=== PATIENT | female | born 1935 | race Caucasian/White ===

== ENCOUNTER 2017-03-04 10:00 | Outpatient (RCR) | payer MEDICARE, OTHER, SELFPAY ==
[2017-02-24 09:18] VITALS: BP 128/65; PULSE 83; RESP 18; TEMP 36.6; BMI 28.7
[2017-02-24 13:48] LABS: Prealbumin 16.3 mg/dL (20.0-40.0)
--- NOTE | 2017-02-24 17:05 | PCM.WC.HP ---
(1) Chronic ulcer of back Status: Acute Code(s): L98.429 - Non-pressure chronic ulcer of back with unspecified severity History of Present Illness Date of Service: 02/24/17 Chief Complaint: Upper Back Ulcer. History of Wound: Ms Ty is a pleasant 82-year-old with past medical history of CKD, hypothyroidism and hypertension amongst others who presented here due to nonhealing upper back wound. Wound was said to have been noted by family in January. Patient believes that she had a rash that she kept picking at and which subsequently worsened to its current state. She denies any known discharge from the site. She feels well otherwise and denies chills, fever, nausea, vomiting, change in her bowel habits or otherwise feeling of unwell. She has had no management of this wound. She denies any history of diabetes. She had lived alone until now but currently lives with her son and [id number]. Past Medical History Past Medical History: Chronic Problems Dyslipidemia (Chronic) Essential (primary) hypertension (Chronic) Hypothyroidism (Chronic) Allergies/Adverse Reactions: Allergies Sulfa (Sulfonamide Antibiotics) Allergy (Verified 01/26/17 05:35) Vomiting Home Medications: Ambulatory Orders Medication Instructions Recorded Albuterol Inhaler [Ventolin Hfa] 1 puff INHALATION Q4H PRN PRN 06/01/13 Budesonide/Formoterol 160/4.5 2 puff INHALATION BID 06/01/13 [Symbicort 160/4.5 Mcg Inhaler (SP)] Carvedilol [Coreg (Beta Rigo)] 6.25 mg PO BID 06/01/13 Gabapentin [Neurontin] 400 mg PO TID 06/01/13 Levothyroxine [Synthroid] 75 mcg PO DAILY 06/01/13 Pantoprazole Sodium [Protonix] 40 mg PO DAILY 06/01/13 ALPRAZolam [Xanax] 0.5 mg PO QHS PRN PRN 01/26/17 Azelastine HCl [Astelin] 2 spray NASAL BID 01/26/17 Benzonatate [Tessalon Perle] 100 mg PO PRN PRN 01/26/17 Losartan Potassium 25 mg PO BID 01/26/17 Murine Dry Eyes 2 drop EACH EYE TID PRN PRN 01/26/17 Pravastatin [Pravachol] 10 mg PO DAILY 01/26/17 Acetaminophen [Tylenol Tablet] 650 mg PO Q6H PRN PRN tablet 01/28/17 - Family History Paternal No pertinent history Smoking Status: Never smoker Review of Systems Constitutional: Denies: Anorexia, Chills, Fever Eyes: Denies: Redness HEENT: Denies: Difficulty Swallowing Cardiovascular: Denies: Chest Pain Respiratory: Denies: Cough, Hemoptysis Gastrointestinal: Denies: Abdominal Pain Skin: Denies: Jaundice - Physical Exam Vital Signs Temp Pulse Resp BP 97.8 F 83 18 128/65 H 02/24/17 09:18 02/24/17 09:18 02/24/17 09:18 02/24/17 09:18 General: Alert, Oriented x3, Cooperative, No apparent distress HEENT: Atraumatic, Normocephalic Oral: Moist Mucosa Neck: Supple Lungs: Normal air movement Cardiovascular: Regular rate, Regular Rhythm, Normal S1, Normal S2 Abdomen: Soft, Non Tender Wound Measurements and Assessment WC - Nurse 1 - General Ulcer Measurement Start: 02/24/17 09:18 Freq: Status: Active Protocol: Activity Type Activity Date Activity User E-Sign Co-Sign Detail Recorded Client Recorded Date Recorded By Document 02/24/17 09:18 MW [id number] 02/24/17 09:38 MW 02/24/17 09:18 Wound Center Nurse 1 [Ulcer Assessment Protocol: WC.WD.LOC] #1 Upper Back - Midline -Combined with other wound No -Current Size (cm) - Length 2.1 -Current Size (cm) - Width 5.8 -Current Size (cm) - Depth 0.1 -Total Square Cm 01.25 -Date of Last Picture (Recall this 02/24/17 field) -Photo Taken Yes -Epithelialization None Present -Tunneling No -Undermining/Tunneling No -Circular Undermining No -Exudate Amt Small (1-33%) -Exudate Type Purulent -Wound Margin Flat & Intact -Granulation Amt None Present (0 %) -Granulation Quality N/A -Slough/Fibrin Yes -Necrosis Amt Large (67-100%) -Necrotic Tissue Type Eschar -Structure Exposed N/A -Texture (Raquel-wound Skin Appearance) No Abnormality Assessed -Moisture (Raquel-wound Skin Appearance No Abnormality ) Assessed -Color (Raquel-wound Skin Appearance) Assessed Erythema -Temperature (Raquel-wound Skin No Abnormality Appearance) (Pt Warm) -Tenderness on Palpation (Raquel-wound No Skin Appearance) -Ulcer Cleansing Rinsed/ Irrigated with Saline -Foul Odor after Cleansing No -Anesthetic Used 5% Lidocaine Gel [Edema Assessment] -Lower Limb Edema Present No WC - Nurse 2 - General Ulcer CM Notes Start: 02/24/17 09:18 Freq: Status: Active Protocol: Activity Type Activity Date Activity User E-Sign Co-Sign Detail Recorded Client Recorded Date Recorded By Document 02/24/17 10:14 DV [id number] 02/24/17 10:36 DV 02/24/17 10:14 Wound Center Nurse 2 [Procedure/Treatment] #1 Upper Back - Midline -Time 10:18 -Correct Patient Yes -Correct Side, Site, Position Yes -Correct Procedure Yes -Procedure Performed Yes -Post Debridement Size (cm) - Length 2.2 -Post Debridement Size (cm) - Width 5.6 -Post Debridement Size (cm) - Depth 0.2 -Total Square Cm 12.32 -Wound/Ulcer Outcome Not Healed -Ulcer Cleansing Rinsed/ Irrigated with Saline -Foul Odor after Cleansing No -Bioengineered Tissue No -Cetacaine [place] No -Bleeding Controlled with Pressure -Treatment Response Procedure Tolerated Well [See Physician Procedure note for Specifics] Pain Scale: 0-10 Numeric [Pain] -Is Patient Pain Free? Yes Lymphatic: No Cervical, Supraclavicular, or Inguinal Adenopathy Neurological: Cranial nerves II-XII grossly intact Psych/Mental Status: Normal Affect Debridement Note Post-Debridement Measurements/Treatment WC - Nurse 2 - General Ulcer CM Notes Start: 02/24/17 09:18 Freq: Status: Active Protocol: Activity Type Activity Date Activity User E-Sign Co-Sign Detail Recorded Client Recorded Date Recorded By Document 02/24/17 10:14 DV [id number] 02/24/17 10:36 DV 02/24/17 10:14 Wound Center Nurse 2 #1 Upper Back - Midline -Time 10:18 -Correct Patient Yes -Correct Side, Site, Position Yes -Correct Procedure Yes -Procedure Performed Yes -Post Debridement Size (cm) - Length 2.2 -Post Debridement Size (cm) - Width 5.6 -Post Debridement Size (cm) - Depth 0.2 -Total Square Cm 12.32 -Wound/Ulcer Outcome Not Healed -Ulcer Cleansing Rinsed/ Irrigated with Saline -Foul Odor after Cleansing No -Bioengineered Tissue No -Cetacaine [place] No -Bleeding Controlled with Pressure -Treatment Response Procedure Tolerated Well Pain Scale: 0-10 Numeric Is Patient Pain Free? Yes Wound debrided: Upper back Type of Debridement: Excisional debridement Anesthesia Used: 4% Lidocaine Solution Depth: Down to and including healthy tissue, in the subcutaneous layer Percentage of wound debrided: 100 Instrument Used: 5mm curette, #10 blade, Forceps Tissue Removed: Eschar, Biofilm, Slough. 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 Plan: Wound debrided today with removal of eschar. Significant slough burden below the eschar which was also debrided. Procedure was well-tolerated. Cultures were taken. Patient also with a poor appetite and so prealbumin was ordered. Advised to take protein supplements twice daily. Apply Aquacel silver dressing with Adaptic covering daily. Follow-up in 1 week. This note was generated with [employer] dictation software. It may contain incorrect words, spelling, and punctuation that were not noted in checking the note before signing.
--- NOTE | 2017-02-24 17:13 | HP.PCM_ITS ---
(1) Chronic ulcer of back Status: Acute Code(s): L98.429 - Non-pressure chronic ulcer of back with unspecified severity History of Present Illness Date of Service: 02/24/17 Chief Complaint: Upper Back Ulcer. History of Wound: Ms Ty is a pleasant 82-year-old with past medical history of CKD, hypothyroidism and hypertension amongst others who presented here due to nonhealing upper back wound. Wound was said to have been noted by family in January. Patient believes that she had a rash that she kept picking at and which subsequently worsened to its current state. She denies any known discharge from the site. She feels well otherwise and denies chills, fever, nausea, vomiting, change in her bowel habits or otherwise feeling of unwell. She has had no management of this wound. She denies any history of diabetes. She had lived alone until now but currently lives with her son and daughter-in- law. Past Medical History Past Medical History: Chronic Problems Dyslipidemia (Chronic) Essential (primary) hypertension (Chronic) Hypothyroidism (Chronic) Allergies/Adverse Reactions: Allergies Sulfa (Sulfonamide Antibiotics) Allergy (Verified 01/26/17 05:35) Vomiting Home Medications: Ambulatory Orders Medication Instructions Recorded Albuterol Inhaler [Ventolin Hfa] 1 puff INHALATION Q4H PRN PRN 06/01/13 Budesonide/Formoterol 160/4.5 2 puff INHALATION BID 06/01/13 [Symbicort 160/4.5 Mcg Inhaler (SP)] Carvedilol [Coreg (Beta Rigo)] 6.25 mg PO BID 06/01/13 Gabapentin [Neurontin] 400 mg PO TID 06/01/13 Levothyroxine [Synthroid] 75 mcg PO DAILY 06/01/13 Pantoprazole Sodium [Protonix] 40 mg PO DAILY 06/01/13 ALPRAZolam [Xanax] 0.5 mg PO QHS PRN PRN 01/26/17 Azelastine HCl [Astelin] 2 spray NASAL BID 01/26/17 Benzonatate [Tessalon Perle] 100 mg PO PRN PRN 01/26/17 Losartan Potassium 25 mg PO BID 01/26/17 Murine Dry Eyes 2 drop EACH EYE TID PRN PRN 01/26/17 Pravastatin [Pravachol] 10 mg PO DAILY 01/26/17 Acetaminophen [Tylenol Tablet] 650 mg PO Q6H PRN PRN tablet 01/28/17 - Family History Paternal No pertinent history Smoking Status: Never smoker Review of Systems Constitutional: Denies: Anorexia, Chills, Fever Eyes: Denies: Redness HEENT: Denies: Difficulty Swallowing Cardiovascular: Denies: Chest Pain Respiratory: Denies: Cough, Hemoptysis Gastrointestinal: Denies: Abdominal Pain Skin: Denies: Jaundice - Physical Exam Vital Signs Temp Pulse Resp BP 97.8 F 83 18 128/65 H 02/24/17 09:18 02/24/17 09:18 02/24/17 09:18 02/24/17 09:18 General: Alert, Oriented x3, Cooperative, No apparent distress HEENT: Atraumatic, Normocephalic Oral: Moist Mucosa Neck: Supple Lungs: Normal air movement Cardiovascular: Regular rate, Regular Rhythm, Normal S1, Normal S2 Abdomen: Soft, Non Tender Wound Measurements and Assessment WC - Nurse 1 - General Ulcer Measurement Start: 02/24/17 09:18 Freq: Status: Active Protocol: Activity Type Activity Date Activity User E-Sign Co-Sign Detail Recorded Client Recorded Date Recorded By Document 02/24/17 09:18 MW [id number] 02/24/17 09:38 MW 02/24/17 09:18 Wound Center Nurse 1 [Ulcer Assessment Protocol: WC.WD.LOC] #1 Upper Back - Midline -Combined with other wound No -Current Size (cm) - Length 2.1 -Current Size (cm) - Width 5.8 -Current Size (cm) - Depth 0.1 -Total Square Cm 01.25 -Date of Last Picture (Recall this 02/24/17 field) -Photo Taken Yes -Epithelialization None Present -Tunneling No -Undermining/Tunneling No -Circular Undermining No -Exudate Amt Small (1-33%) -Exudate Type Purulent -Wound Margin Flat & Intact -Granulation Amt None Present (0 %) -Granulation Quality N/A -Slough/Fibrin Yes -Necrosis Amt Large (67-100%) -Necrotic Tissue Type Eschar -Structure Exposed N/A -Texture (Raquel-wound Skin Appearance) No Abnormality Assessed -Moisture (Raquel-wound Skin Appearance No Abnormality ) Assessed -Color (Raquel-wound Skin Appearance) Assessed Erythema -Temperature (Raquel-wound Skin No Abnormality Appearance) (Pt Warm) -Tenderness on Palpation (Raquel-wound No Skin Appearance) -Ulcer Cleansing Rinsed/ Irrigated with Saline -Foul Odor after Cleansing No -Anesthetic Used 5% Lidocaine Gel [Edema Assessment] -Lower Limb Edema Present No WC - Nurse 2 - General Ulcer CM Notes Start: 02/24/17 09:18 Freq: Status: Active Protocol: Activity Type Activity Date Activity User E-Sign Co-Sign Detail Recorded Client Recorded Date Recorded By Document 02/24/17 10:14 DV [id number] 02/24/17 10:36 DV 02/24/17 10:14 Wound Center Nurse 2 [Procedure/Treatment] #1 Upper Back - Midline -Time 10:18 -Correct Patient Yes -Correct Side, Site, Position Yes -Correct Procedure Yes -Procedure Performed Yes -Post Debridement Size (cm) - Length 2.2 -Post Debridement Size (cm) - Width 5.6 -Post Debridement Size (cm) - Depth 0.2 -Total Square Cm 12.32 -Wound/Ulcer Outcome Not Healed -Ulcer Cleansing Rinsed/ Irrigated with Saline -Foul Odor after Cleansing No -Bioengineered Tissue No -Cetacaine [place] No -Bleeding Controlled with Pressure -Treatment Response Procedure Tolerated Well [See Physician Procedure note for Specifics] Pain Scale: 0-10 Numeric [Pain] -Is Patient Pain Free? Yes Lymphatic: No Cervical, Supraclavicular, or Inguinal Adenopathy Neurological: Cranial nerves II-XII grossly intact Psych/Mental Status: Normal Affect Debridement Note Post-Debridement Measurements/Treatment WC - Nurse 2 - General Ulcer CM Notes Start: 02/24/17 09:18 Freq: Status: Active Protocol: Activity Type Activity Date Activity User E-Sign Co-Sign Detail Recorded Client Recorded Date Recorded By Document 02/24/17 10:14 DV [id number] 02/24/17 10:36 DV 02/24/17 10:14 Wound Center Nurse 2 #1 Upper Back - Midline -Time 10:18 -Correct Patient Yes -Correct Side, Site, Position Yes -Correct Procedure Yes -Procedure Performed Yes -Post Debridement Size (cm) - Length 2.2 -Post Debridement Size (cm) - Width 5.6 -Post Debridement Size (cm) - Depth 0.2 -Total Square Cm 12.32 -Wound/Ulcer Outcome Not Healed -Ulcer Cleansing Rinsed/ Irrigated with Saline -Foul Odor after Cleansing No -Bioengineered Tissue No -Cetacaine [place] No -Bleeding Controlled with Pressure -Treatment Response Procedure Tolerated Well Pain Scale: 0-10 Numeric Is Patient Pain Free? Yes Wound debrided: Upper back Type of Debridement: Excisional debridement Anesthesia Used: 4% Lidocaine Solution Depth: Down to and including healthy tissue, in the subcutaneous layer Percentage of wound debrided: 100 Instrument Used: 5mm curette, #10 blade, Forceps Tissue Removed: Eschar, Biofilm, Slough. 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 Plan: Wound debrided today with removal of eschar. Significant slough burden below the eschar which was also debrided. Procedure was well-tolerated. Cultures were taken. Patient also with a poor appetite and so prealbumin was ordered. Advised to take protein supplements twice daily. Apply Aquacel silver dressing with Adaptic covering daily. Follow-up in 1 week. This note was generated with [employer] dictation software. It may contain incorrect words, spelling, and punctuation that were not noted in checking the note before signing.
[2017-03-04 10:39] VITALS: BP 158/86; PULSE 66; RESP 18; TEMP 36.2; BMI 28.7
--- NOTE | 2017-03-04 10:40 | WC ---
PT WENT TO DR DRUMMOND FOR COUGH WEDNESDAY HE PRESCRIBED PREDNISONE AND ATB NOT SURE OF DOSEAGE
--- NOTE | 2017-03-04 15:26 | PCM.WC.PN ---
(1) Chronic ulcer of back Status: Acute Current Visit: Yes Code(s): L98.429 - Non-pressure chronic ulcer of back with unspecified severity Type of Wound Date of Service: 03/04/17 Chief Complaint: Upper Back Ulcer. History of Wound: Ms Ty is a pleasant 82-year-old with past medical history of CKD, hypothyroidism and hypertension amongst others who presented here due to nonhealing upper back wound. Wound was said to have been noted by family in January. Patient believes that she had a rash that she kept picking at and which subsequently worsened to its current state. She denies any known discharge from the site. She feels well otherwise and denies chills, fever, nausea, vomiting, change in her bowel habits or otherwise feeling of unwell. She has had no management of this wound. She denies any history of diabetes. She had lived alone until now but currently lives with her son and [id number]. Progress of Wound: Improving. - Physical Exam Vital Signs Temp Pulse Resp BP 97.1 F L 66 18 158/86 H 03/04/17 10:39 03/04/17 10:39 03/04/17 10:39 03/04/17 10:39 General: Alert, Cooperative, No apparent distress HEENT: Atraumatic, Normocephalic Oral: Moist Mucosa Neck: Supple Lungs: Normal air movement Cardiovascular: Regular rate Extremities: No cyanosis Wound Measurements and Assessment - Nurse 1 - General Ulcer Measurement Start: 02/24/17 09:18 Freq: Status: Active Protocol: Activity Type Activity Date Activity User E-Sign Co-Sign Detail Recorded Client Recorded Date Recorded By Document 03/04/17 10:39 [id number] 03/04/17 10:51 RB 03/04/17 10:39 Wound Center Nurse 1 [Ulcer Assessment Protocol: KAYLI.WD.LOC] #1 Upper Back - Midline -Combined with other wound No -Current Size (cm) - Length 1.6 -Current Size (cm) - Width 5 -Current Size (cm) - Depth 0.1 -Total Square Cm 8.0 -Photo Taken No -Epithelialization Medium 34-66% -Tunneling No -Undermining/Tunneling No -Circular Undermining No -Classification - Thickness Full Thickness without Exposed Support Structure -Exudate Amt Small (1-33%) -Exudate Type Serosanguineous -Wound Margin Distinct, Outline Attached -Granulation Amt Large (67-100%) -Granulation Quality [place] -Necrosis Amt Small (1-33%) -Necrotic Tissue Type Adherent Slough -Structure Exposed N/A -Texture (Raquel-wound Skin Appearance) Assessed -Moisture (Raquel-wound Skin Appearance Assessed ) -Color (Raquel-wound Skin Appearance) Assessed -Temperature (Raquel-wound Skin No Abnormality Appearance) (Pt Warm) -Tenderness on Palpation (Raquel-wound No Skin Appearance) -Ulcer Cleansing Rinsed/ Irrigated with Saline -Foul Odor after Cleansing No -Anesthetic Used 5% Lidocaine Gel WC - Nurse 2 - General Ulcer CM Notes Start: 02/24/17 09:18 Freq: Status: Active Protocol: Activity Type Activity Date Activity User E-Sign Co-Sign Detail Recorded Client Recorded Date Recorded By Document 03/04/17 11:37 DV [id number] 03/04/17 11:40 DV 03/04/17 11:37 Wound Center Nurse 2 [Procedure/Treatment] -Time 11:39 -Correct Patient Yes -Correct Side, Site, Position Yes -Correct Procedure Yes -Procedure Performed Yes -Type of Procedure Debridement -Clinical Debridement Subcutaneous -Post Debridement Size (cm) - Length 5.5 -Post Debridement Size (cm) - Width 1.5 -Post Debridement Size (cm) - Depth 0.1 -Total Square Cm 8.25 -Wound/Ulcer Outcome Not Healed -Ulcer Cleansing Rinsed/ Irrigated with Saline -Foul Odor after Cleansing No -Bioengineered Tissue No -Cetacaine [place] No -Bleeding Controlled with Pressure -Treatment Response Procedure Tolerated Well [See Physician Procedure note for Specifics] Pain Scale: 0-10 Numeric [Pain] -Is Patient Pain Free? Yes Neurological: Cranial nerves II-XII grossly intact Psych/Mental Status: Normal Affect Debridement Note Post-Debridement Measurements/Treatment WC - Nurse 2 - General Ulcer CM Notes Start: 02/24/17 09:18 Freq: Status: Active Protocol: Activity Type Activity Date Activity User E-Sign Co-Sign Detail Recorded Client Recorded Date Recorded By Document 02/24/17 10:14 DV [id number] 02/24/17 10:36 DV Document 03/04/17 11:37 DV [id number] 03/04/17 11:40 DV 02/24/17 03/04/17 10:14 11:37 Wound Center Nurse 2 #1 Upper Back - Midline -Time 10:18 11:39 -Correct Patient Yes Yes -Correct Side, Site, Position Yes Yes -Correct Procedure Yes Yes -Procedure Performed Yes Yes -Type of Procedure Debridement -Clinical Debridement Subcutaneous -Post Debridement Size (cm) - Length 2.2 5.5 -Post Debridement Size (cm) - Width 5.6 1.5 -Post Debridement Size (cm) - Depth 0.2 0.1 -Total Square Cm 12.32 8.25 -Wound/Ulcer Outcome Not Healed Not Healed -Ulcer Cleansing Rinsed/ Rinsed/ Irrigated with Irrigated with Saline Saline -Foul Odor after Cleansing No No -Bioengineered Tissue No No -Cetacaine [place] No No -Bleeding Controlled with Pressure Pressure -Treatment Response Procedure Procedure Tolerated Well Tolerated Well Pain Scale: 0-10 Numeric Is Patient Pain Free? Yes Yes Wound debrided: Upper back ulcer Type of Debridement: Excisional debridement Anesthesia Used: 5% Lidocaine Gel Depth: Down to and including healthy tissue, in the subcutaneous layer Percentage of wound debrided: 100 Instrument Used: 5mm curette Tissue Removed: Slough, fibrin. 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 Plan: Cultures grew MRSA and per son , there has been significant discharge noted with dressing change. Prescription for Levofloxacin 500mg daily for 7 days given. Continue Aquacel silver with dressing done twice daily. Adaptic covering. Low prealbumin: Protein supplements recommended. Protein rich diet. Follow-up in 1 week. This note was generated with [employer] dictation software. It may contain incorrect words, spelling, and punctuation that were not noted in checking the note before signing.
--- NOTE | 2017-03-04 15:31 | PN.PCM_ITS ---
(1) Chronic ulcer of back Status: Acute Current Visit: Yes Code(s): L98.429 - Non-pressure chronic ulcer of back with unspecified severity Type of Wound Date of Service: 03/04/17 Chief Complaint: Upper Back Ulcer. History of Wound: Ms Ty is a pleasant 82-year-old with past medical history of CKD, hypothyroidism and hypertension amongst others who presented here due to nonhealing upper back wound. Wound was said to have been noted by family in January. Patient believes that she had a rash that she kept picking at and which subsequently worsened to its current state. She denies any known discharge from the site. She feels well otherwise and denies chills, fever, nausea, vomiting, change in her bowel habits or otherwise feeling of unwell. She has had no management of this wound. She denies any history of diabetes. She had lived alone until now but currently lives with her son and daughter-in- law. Progress of Wound: Improving. - Physical Exam Vital Signs Temp Pulse Resp BP 97.1 F L 66 18 158/86 H 03/04/17 10:39 03/04/17 10:39 03/04/17 10:39 03/04/17 10:39 General: Alert, Cooperative, No apparent distress HEENT: Atraumatic, Normocephalic Oral: Moist Mucosa Neck: Supple Lungs: Normal air movement Cardiovascular: Regular rate Extremities: No cyanosis Wound Measurements and Assessment - Nurse 1 - General Ulcer Measurement Start: 02/24/17 09:18 Freq: Status: Active Protocol: Activity Type Activity Date Activity User E-Sign Co-Sign Detail Recorded Client Recorded Date Recorded By Document 03/04/17 10:39 [id number] 03/04/17 10:51 RB 03/04/17 10:39 Wound Center Nurse 1 [Ulcer Assessment Protocol: KAYLI.WD.LOC] #1 Upper Back - Midline -Combined with other wound No -Current Size (cm) - Length 1.6 -Current Size (cm) - Width 5 -Current Size (cm) - Depth 0.1 -Total Square Cm 8.0 -Photo Taken No -Epithelialization Medium 34-66% -Tunneling No -Undermining/Tunneling No -Circular Undermining No -Classification - Thickness Full Thickness without Exposed Support Structure -Exudate Amt Small (1-33%) -Exudate Type Serosanguineous -Wound Margin Distinct, Outline Attached -Granulation Amt Large (67-100%) -Granulation Quality [place] -Necrosis Amt Small (1-33%) -Necrotic Tissue Type Adherent Slough -Structure Exposed N/A -Texture (Raquel-wound Skin Appearance) Assessed -Moisture (Raquel-wound Skin Appearance Assessed ) -Color (Raquel-wound Skin Appearance) Assessed -Temperature (Raquel-wound Skin No Abnormality Appearance) (Pt Warm) -Tenderness on Palpation (Raquel-wound No Skin Appearance) -Ulcer Cleansing Rinsed/ Irrigated with Saline -Foul Odor after Cleansing No -Anesthetic Used 5% Lidocaine Gel WC - Nurse 2 - General Ulcer CM Notes Start: 02/24/17 09:18 Freq: Status: Active Protocol: Activity Type Activity Date Activity User E-Sign Co-Sign Detail Recorded Client Recorded Date Recorded By Document 03/04/17 11:37 DV [id number] 03/04/17 11:40 DV 03/04/17 11:37 Wound Center Nurse 2 [Procedure/Treatment] -Time 11:39 -Correct Patient Yes -Correct Side, Site, Position Yes -Correct Procedure Yes -Procedure Performed Yes -Type of Procedure Debridement -Clinical Debridement Subcutaneous -Post Debridement Size (cm) - Length 5.5 -Post Debridement Size (cm) - Width 1.5 -Post Debridement Size (cm) - Depth 0.1 -Total Square Cm 8.25 -Wound/Ulcer Outcome Not Healed -Ulcer Cleansing Rinsed/ Irrigated with Saline -Foul Odor after Cleansing No -Bioengineered Tissue No -Cetacaine [place] No -Bleeding Controlled with Pressure -Treatment Response Procedure Tolerated Well [See Physician Procedure note for Specifics] Pain Scale: 0-10 Numeric [Pain] -Is Patient Pain Free? Yes Neurological: Cranial nerves II-XII grossly intact Psych/Mental Status: Normal Affect Debridement Note Post-Debridement Measurements/Treatment WC - Nurse 2 - General Ulcer CM Notes Start: 02/24/17 09:18 Freq: Status: Active Protocol: Activity Type Activity Date Activity User E-Sign Co-Sign Detail Recorded Client Recorded Date Recorded By Document 02/24/17 10:14 DV [id number] 02/24/17 10:36 DV Document 03/04/17 11:37 DV [id number] 03/04/17 11:40 DV 02/24/17 03/04/17 10:14 11:37 Wound Center Nurse 2 #1 Upper Back - Midline -Time 10:18 11:39 -Correct Patient Yes Yes -Correct Side, Site, Position Yes Yes -Correct Procedure Yes Yes -Procedure Performed Yes Yes -Type of Procedure Debridement -Clinical Debridement Subcutaneous -Post Debridement Size (cm) - Length 2.2 5.5 -Post Debridement Size (cm) - Width 5.6 1.5 -Post Debridement Size (cm) - Depth 0.2 0.1 -Total Square Cm 12.32 8.25 -Wound/Ulcer Outcome Not Healed Not Healed -Ulcer Cleansing Rinsed/ Rinsed/ Irrigated with Irrigated with Saline Saline -Foul Odor after Cleansing No No -Bioengineered Tissue No No -Cetacaine [place] No No -Bleeding Controlled with Pressure Pressure -Treatment Response Procedure Procedure Tolerated Well Tolerated Well Pain Scale: 0-10 Numeric Is Patient Pain Free? Yes Yes Wound debrided: Upper back ulcer Type of Debridement: Excisional debridement Anesthesia Used: 5% Lidocaine Gel Depth: Down to and including healthy tissue, in the subcutaneous layer Percentage of wound debrided: 100 Instrument Used: 5mm curette Tissue Removed: Slough, fibrin. 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 Plan: Cultures grew MRSA and per son , there has been significant discharge noted with dressing change. Prescription for Levofloxacin 500mg daily for 7 days given. Continue Aquacel silver with dressing done twice daily. Adaptic covering. Low prealbumin: Protein supplements recommended. Protein rich diet. Follow-up in 1 week. This note was generated with [employer] dictation software. It may contain incorrect words, spelling, and punctuation that were not noted in checking the note before signing.
== END 2017-03-10 23:59 ==
LOC: WC 10:00
PROVIDERS: Family Provider Family Medicine; PCP Family Medicine; Visit Provider Internal Medicine
DX: L98.422 Non-pressure chronic ulcer of back with fat layer exposed (principal); I12.9 Hypertensive chronic kidney disease with stage 1 through stage 4 chronic kidney disease, or unspecified chronic kidney disease; N18.9 Chronic kidney disease, unspecified; Z79.899 Other long term (current) drug therapy; Z79.51 Long term (current) use of inhaled steroids; E03.9 Hypothyroidism, unspecified
CPT/HCPCS: 11042; 84134; 87070; 87075; 87077; 87186; 87205; 99213; G0463

== ENCOUNTER 2017-03-25 09:00 | Outpatient (RCR) | payer MEDICARE, OTHER, SELFPAY ==
[2017-03-04 10:39] VITALS: BP 158/86
[2017-03-11 01:11] VITALS: PULSE 66; RESP 18; TEMP 36.2
[2017-03-11 08:27] VITALS: BP 111/63; PULSE 90; RESP 18; TEMP 36.2; BMI 28.7
--- NOTE | 2017-03-11 17:56 | PCM.WC.PN ---
(1) Chronic ulcer of back Status: Acute Current Visit: Yes Code(s): L98.429 - Non-pressure chronic ulcer of back with unspecified severity (2) Essential (primary) hypertension Status: Chronic Current Visit: No Code(s): I10 - Essential (primary) hypertension (3) Hypothyroidism Status: Chronic Current Visit: No Code(s): E03.9 - Hypothyroidism, unspecified Type of Wound Date of Service: 03/11/17 Chief Complaint: Upper Back Ulcer. History of Wound: Ms Ty is a pleasant 82-year-old with past medical history of CKD, hypothyroidism and hypertension amongst others who presented here due to nonhealing upper back wound. Wound was said to have been noted by family in January. Patient believes that she had a rash that she kept picking at and which subsequently worsened to its current state. She denies any known discharge from the site. She feels well otherwise and denies chills, fever, nausea, vomiting, change in her bowel habits or otherwise feeling of unwell. She has had no management of this wound. She denies any history of diabetes. She had lived alone until now but currently lives with her son and [id number]. Progress of Wound: Improving. - Physical Exam Vital Signs Temp Pulse Resp BP 97.1 F L 90 18 111/63 03/11/17 08:27 03/11/17 08:27 03/11/17 08:27 03/11/17 08:27 General: Alert, Oriented x3, Cooperative, No apparent distress HEENT: Atraumatic, Normocephalic Oral: Moist Mucosa Neck: Supple Lungs: Normal air movement Cardiovascular: Regular rate Extremities: No cyanosis Skin: Ulcer/ Wound Wound Measurements and Assessment - Nurse 1 - General Ulcer Measurement Start: 03/11/17 08:26 Freq: Status: Active Protocol: Activity Type Activity Date Activity User E-Sign Co-Sign Detail Recorded Client Recorded Date Recorded By Document 03/11/17 08:27 DV [id number] 03/11/17 08:31 DV 03/11/17 08:27 Wound Center Nurse 1 [Ulcer Assessment Protocol: WC.WD.LOC] #1 Upper Back - Midline -Combined with other wound No -Current Size (cm) - Length 1.2 -Current Size (cm) - Width 4.9 -Current Size (cm) - Depth 0.1 -Total Square Cm 5.88 -Photo Taken No -Epithelialization Small 1-33% -Tunneling No -Undermining/Tunneling No -Circular Undermining No -Classification - Thickness Full Thickness without Exposed Support Structure -Exudate Amt Small (1-33%) -Exudate Type Serosanguineous -Wound Margin Distinct, Outline Attached -Granulation Amt Large (67-100%) -Granulation Quality [place] -Slough/Fibrin Yes -Necrosis Amt Small (1-33%) -Necrotic Tissue Type Adherent Slough -Structure Exposed Fascia Fat Layer Exposed -Texture (Raquel-wound Skin Appearance) Scarring -Moisture (Raquel-wound Skin Appearance No Abnormality ) -Color (Raquel-wound Skin Appearance) No Abnormality -Temperature (Raquel-wound Skin No Abnormality Appearance) (Pt Warm) -Tenderness on Palpation (Raquel-wound Yes Skin Appearance) -Ulcer Cleansing Rinsed/ Irrigated with Saline -Foul Odor after Cleansing No -Anesthetic Used 5% Lidocaine Gel [Edema Assessment] -Lower Limb Edema Present No WC - Nurse 2 - General Ulcer CM Notes Start: 03/11/17 08:26 Freq: Status: Active Protocol: Activity Type Activity Date Activity User E-Sign Co-Sign Detail Recorded Client Recorded Date Recorded By Document 03/11/17 09:17 DV [id number] 03/11/17 09:22 DV 03/11/17 09:17 Wound Center Nurse 2 [Procedure/Treatment] #1 Upper Back - Midline -Time 09:17 -Correct Patient Yes -Correct Side, Site, Position Yes -Correct Procedure Yes -Procedure Performed Yes -Type of Procedure Debridement -Clinical Debridement Subcutaneous -Post Debridement Size (cm) - Length 1.5 -Post Debridement Size (cm) - Width 4.7 -Post Debridement Size (cm) - Depth 0.1 -Total Square Cm 7.05 -Wound/Ulcer Outcome Not Healed -Ulcer Cleansing Rinsed/ Irrigated with Saline -Foul Odor after Cleansing No -Bioengineered Tissue No -Cetacaine [place] No -Bleeding Controlled with Pressure -Treatment Response Procedure Tolerated Well [See Physician Procedure note for Specifics] Pain Scale: 0-10 Numeric [Pain] -Is Patient Pain Free? Yes Musculoskeletal: No Muscle Wasting Neurological: Cranial nerves II-XII grossly intact Psych/Mental Status: Normal Affect Debridement Note Post-Debridement Measurements/Treatment WC - Nurse 2 - General Ulcer CM Notes Start: 03/11/17 08:26 Freq: Status: Active Protocol: Activity Type Activity Date Activity User E-Sign Co-Sign Detail Recorded Client Recorded Date Recorded By Document 03/11/17 09:17 DV [id number] 03/11/17 09:22 DV 03/11/17 09:17 Wound Center Nurse 2 #1 Upper Back - Midline -Time 09:17 -Correct Patient Yes -Correct Side, Site, Position Yes -Correct Procedure Yes -Procedure Performed Yes -Type of Procedure Debridement -Clinical Debridement Subcutaneous -Post Debridement Size (cm) - Length 1.5 -Post Debridement Size (cm) - Width 4.7 -Post Debridement Size (cm) - Depth 0.1 -Total Square Cm 7.05 -Wound/Ulcer Outcome Not Healed -Ulcer Cleansing Rinsed/ Irrigated with Saline -Foul Odor after Cleansing No -Bioengineered Tissue No -Cetacaine [place] No -Bleeding Controlled with Pressure -Treatment Response Procedure Tolerated Well Pain Scale: 0-10 Numeric Is Patient Pain Free? 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 Plan: No more significant drainage and wound has continued to show good progress. She has completed her course of antibiotics. Will switch to Aquacel extra with Adaptic covering. Change daily. Continue protein rich diet and supplements. Follow-up in 1 week. This note was generated with [employer] software. It may contain incorrect words, spelling, and punctuation that were not noted in checking the note before signing.
--- NOTE | 2017-03-11 17:59 | PN.PCM_ITS ---
(1) Chronic ulcer of back Status: Acute Current Visit: Yes Code(s): L98.429 - Non-pressure chronic ulcer of back with unspecified severity (2) Essential (primary) hypertension Status: Chronic Current Visit: No Code(s): I10 - Essential (primary) hypertension (3) Hypothyroidism Status: Chronic Current Visit: No Code(s): E03.9 - Hypothyroidism, unspecified Type of Wound Date of Service: 03/11/17 Chief Complaint: Upper Back Ulcer. History of Wound: Ms Ty is a pleasant 82-year-old with past medical history of CKD, hypothyroidism and hypertension amongst others who presented here due to nonhealing upper back wound. Wound was said to have been noted by family in January. Patient believes that she had a rash that she kept picking at and which subsequently worsened to its current state. She denies any known discharge from the site. She feels well otherwise and denies chills, fever, nausea, vomiting, change in her bowel habits or otherwise feeling of unwell. She has had no management of this wound. She denies any history of diabetes. She had lived alone until now but currently lives with her son and daughter-in- law. Progress of Wound: Improving. - Physical Exam Vital Signs Temp Pulse Resp BP 97.1 F L 90 18 111/63 03/11/17 08:27 03/11/17 08:27 03/11/17 08:27 03/11/17 08:27 General: Alert, Oriented x3, Cooperative, No apparent distress HEENT: Atraumatic, Normocephalic Oral: Moist Mucosa Neck: Supple Lungs: Normal air movement Cardiovascular: Regular rate Extremities: No cyanosis Skin: Ulcer/ Wound Wound Measurements and Assessment - Nurse 1 - General Ulcer Measurement Start: 03/11/17 08:26 Freq: Status: Active Protocol: Activity Type Activity Date Activity User E-Sign Co-Sign Detail Recorded Client Recorded Date Recorded By Document 03/11/17 08:27 DV [id number] 03/11/17 08:31 DV 03/11/17 08:27 Wound Center Nurse 1 [Ulcer Assessment Protocol: WC.WD.LOC] #1 Upper Back - Midline -Combined with other wound No -Current Size (cm) - Length 1.2 -Current Size (cm) - Width 4.9 -Current Size (cm) - Depth 0.1 -Total Square Cm 5.88 -Photo Taken No -Epithelialization Small 1-33% -Tunneling No -Undermining/Tunneling No -Circular Undermining No -Classification - Thickness Full Thickness without Exposed Support Structure -Exudate Amt Small (1-33%) -Exudate Type Serosanguineous -Wound Margin Distinct, Outline Attached -Granulation Amt Large (67-100%) -Granulation Quality [place] -Slough/Fibrin Yes -Necrosis Amt Small (1-33%) -Necrotic Tissue Type Adherent Slough -Structure Exposed Fascia Fat Layer Exposed -Texture (Raquel-wound Skin Appearance) Scarring -Moisture (Raquel-wound Skin Appearance No Abnormality ) -Color (Raquel-wound Skin Appearance) No Abnormality -Temperature (Raquel-wound Skin No Abnormality Appearance) (Pt Warm) -Tenderness on Palpation (Raquel-wound Yes Skin Appearance) -Ulcer Cleansing Rinsed/ Irrigated with Saline -Foul Odor after Cleansing No -Anesthetic Used 5% Lidocaine Gel [Edema Assessment] -Lower Limb Edema Present No WC - Nurse 2 - General Ulcer CM Notes Start: 03/11/17 08:26 Freq: Status: Active Protocol: Activity Type Activity Date Activity User E-Sign Co-Sign Detail Recorded Client Recorded Date Recorded By Document 03/11/17 09:17 DV [id number] 03/11/17 09:22 DV 03/11/17 09:17 Wound Center Nurse 2 [Procedure/Treatment] #1 Upper Back - Midline -Time 09:17 -Correct Patient Yes -Correct Side, Site, Position Yes -Correct Procedure Yes -Procedure Performed Yes -Type of Procedure Debridement -Clinical Debridement Subcutaneous -Post Debridement Size (cm) - Length 1.5 -Post Debridement Size (cm) - Width 4.7 -Post Debridement Size (cm) - Depth 0.1 -Total Square Cm 7.05 -Wound/Ulcer Outcome Not Healed -Ulcer Cleansing Rinsed/ Irrigated with Saline -Foul Odor after Cleansing No -Bioengineered Tissue No -Cetacaine [place] No -Bleeding Controlled with Pressure -Treatment Response Procedure Tolerated Well [See Physician Procedure note for Specifics] Pain Scale: 0-10 Numeric [Pain] -Is Patient Pain Free? Yes Musculoskeletal: No Muscle Wasting Neurological: Cranial nerves II-XII grossly intact Psych/Mental Status: Normal Affect Debridement Note Post-Debridement Measurements/Treatment WC - Nurse 2 - General Ulcer CM Notes Start: 03/11/17 08:26 Freq: Status: Active Protocol: Activity Type Activity Date Activity User E-Sign Co-Sign Detail Recorded Client Recorded Date Recorded By Document 03/11/17 09:17 DV [id number] 03/11/17 09:22 DV 03/11/17 09:17 Wound Center Nurse 2 #1 Upper Back - Midline -Time 09:17 -Correct Patient Yes -Correct Side, Site, Position Yes -Correct Procedure Yes -Procedure Performed Yes -Type of Procedure Debridement -Clinical Debridement Subcutaneous -Post Debridement Size (cm) - Length 1.5 -Post Debridement Size (cm) - Width 4.7 -Post Debridement Size (cm) - Depth 0.1 -Total Square Cm 7.05 -Wound/Ulcer Outcome Not Healed -Ulcer Cleansing Rinsed/ Irrigated with Saline -Foul Odor after Cleansing No -Bioengineered Tissue No -Cetacaine [place] No -Bleeding Controlled with Pressure -Treatment Response Procedure Tolerated Well Pain Scale: 0-10 Numeric Is Patient Pain Free? 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 Plan: No more significant drainage and wound has continued to show good progress. She has completed her course of antibiotics. Will switch to Aquacel extra with Adaptic covering. Change daily. Continue protein rich diet and supplements. Follow-up in 1 week. This note was generated with [employer] software. It may contain incorrect words, spelling, and punctuation that were not noted in checking the note before signing.
[2017-03-18 09:27] VITALS: BP 146/77; PULSE 66; RESP 16; TEMP 36.2; BMI 28.7
--- NOTE | 2017-03-18 18:18 | PCM.WC.PN ---
(1) Chronic ulcer of back Status: Acute Current Visit: Yes Code(s): L98.429 - Non-pressure chronic ulcer of back with unspecified severity (2) Essential (primary) hypertension Status: Chronic Current Visit: No Code(s): I10 - Essential (primary) hypertension (3) Hypothyroidism Status: Chronic Current Visit: No Code(s): E03.9 - Hypothyroidism, unspecified Type of Wound Date of Service: 03/18/17 Chief Complaint: Upper Back Ulcer. History of Wound: Ms Ty is a pleasant 82-year-old with past medical history of CKD, hypothyroidism and hypertension amongst others who presented here due to nonhealing upper back wound. Wound was said to have been noted by family in January. Patient believes that she had a rash that she kept picking at and which subsequently worsened to its current state. She denies any known discharge from the site. She feels well otherwise and denies chills, fever, nausea, vomiting, change in her bowel habits or otherwise feeling of unwell. She has had no management of this wound. She denies any history of diabetes. She had lived alone until now but currently lives with her son and [id number]. Progress of Wound: Improving. - Physical Exam Vital Signs Temp Pulse Resp BP 97.1 F L 66 16 146/77 H 03/18/17 09:27 03/18/17 09:27 03/18/17 09:27 03/18/17 09:27 General: Alert, Oriented x3, Cooperative, No apparent distress HEENT: Atraumatic, Normocephalic Oral: Moist Mucosa Neck: Supple Lungs: Normal air movement Cardiovascular: Regular rate Extremities: No cyanosis Skin: Ulcer/ Wound Wound Measurements and Assessment - Nurse 1 - General Ulcer Measurement Start: 03/11/17 08:26 Freq: Status: Active Protocol: Activity Type Activity Date Activity User E-Sign Co-Sign Detail Recorded Client Recorded Date Recorded By Document 03/18/17 09:27 [facility] [id number] 03/18/17 09:33 [facility] 03/18/17 09:27 Wound Center Nurse 1 [Ulcer Assessment Protocol: KAYLI.WD.LOC] #1 Upper Back - Midline -Combined with other wound No -Current Size (cm) - Length 1.6 -Current Size (cm) - Width 4.1 -Current Size (cm) - Depth 0.1 -Total Square Cm 6.56 -Photo Taken No -Epithelialization Small 1-33% -Tunneling No -Undermining/Tunneling No -Exudate Amt Small (1-33%) -Exudate Type Serosanguineous -Wound Margin Distinct, Outline Attached -Granulation Amt Large (67-100%) -Granulation Quality Red -Slough/Fibrin No -Necrosis Amt None Present (0 %) -Texture (Raquel-wound Skin Appearance) Scarring -Moisture (Raquel-wound Skin Appearance Assessed ) Dry/Scaly -Color (Raquel-wound Skin Appearance) Assessed -Temperature (Raquel-wound Skin No Abnormality Appearance) (Pt Warm) -Tenderness on Palpation (Raquel-wound No Skin Appearance) -Ulcer Cleansing Rinsed/ Irrigated with Saline -Foul Odor after Cleansing No -Anesthetic Used 4% Lidocaine Solution WC - Nurse 2 - General Ulcer CM Notes Start: 03/11/17 08:26 Freq: Status: Active Protocol: Activity Type Activity Date Activity User E-Sign Co-Sign Detail Recorded Client Recorded Date Recorded By Document 03/18/17 09:53 DV [id number] 03/18/17 09:54 DV 03/18/17 09:53 Wound Center Nurse 2 [Procedure/Treatment] -Time 09:54 -Correct Patient Yes -Correct Side, Site, Position Yes -Correct Procedure Yes -Procedure Performed Yes -Type of Procedure Debridement -Clinical Debridement Subcutaneous -Post Debridement Size (cm) - Length 1.1 -Post Debridement Size (cm) - Width 4.1 -Post Debridement Size (cm) - Depth 0.1 -Total Square Cm 4.51 -Wound/Ulcer Outcome Not Healed -Ulcer Cleansing Rinsed/ Irrigated with Saline -Foul Odor after Cleansing No -Bioengineered Tissue No -Bleeding Controlled with Pressure -Treatment Response Procedure Tolerated Well [See Physician Procedure note for Specifics] Pain Scale: 0-10 Numeric [Pain] -Is Patient Pain Free? Yes Musculoskeletal: No Muscle Wasting Neurological: Cranial nerves II-XII grossly intact Psych/Mental Status: Normal Affect Debridement Note Post-Debridement Measurements/Treatment WC - Nurse 2 - General Ulcer CM Notes Start: 03/11/17 08:26 Freq: Status: Active Protocol: Activity Type Activity Date Activity User E-Sign Co-Sign Detail Recorded Client Recorded Date Recorded By Document 02/01/18 09:17 DV [id number] 03/11/17 09:22 DV Document 03/18/17 09:53 DV [id number] 03/18/17 09:54 DV 03/11/17 03/18/17 09:17 09:53 Wound Center Nurse 2 #1 Upper Back - Midline -Time : 09:54 -Correct Patient Yes Yes -Correct Side, Site, Position Yes Yes -Correct Procedure Yes Yes -Procedure Performed Yes Yes -Type of Procedure Debridement Debridement -Clinical Debridement Subcutaneous Subcutaneous -Post Debridement Size (cm) - Length 1.5 1.1 -Post Debridement Size (cm) - Width 4.7 4.1 -Post Debridement Size (cm) - Depth 0.1 0.1 -Total Square Cm 7.05 4.51 -Wound/Ulcer Outcome Not Healed Not Healed -Ulcer Cleansing Rinsed/ Rinsed/ Irrigated with Irrigated with Saline Saline -Foul Odor after Cleansing No No -Bioengineered Tissue No No -Cetacaine [place] No -Bleeding Controlled with Pressure Pressure -Treatment Response Procedure Procedure Tolerated Well Tolerated Well Pain Scale: 0-10 Numeric Is Patient Pain Free? 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 Plan: Continued wound progress. No new complaints at this time. Debridement as documented in clinical panel. Continue Aquacel extra with Adaptic covering. Change daily. Continue protein rich diet and supplements. Follow-up in 1 week. This note was generated with [employer] dictation software. It may contain incorrect words, spelling, and punctuation that were not noted in checking the note before signing.
--- NOTE | 2017-03-18 18:22 | PN.PCM_ITS ---
(1) Chronic ulcer of back Status: Acute Current Visit: Yes Code(s): L98.429 - Non-pressure chronic ulcer of back with unspecified severity (2) Essential (primary) hypertension Status: Chronic Current Visit: No Code(s): I10 - Essential (primary) hypertension (3) Hypothyroidism Status: Chronic Current Visit: No Code(s): E03.9 - Hypothyroidism, unspecified Type of Wound Date of Service: 03/18/17 Chief Complaint: Upper Back Ulcer. History of Wound: Ms Ty is a pleasant 82-year-old with past medical history of CKD, hypothyroidism and hypertension amongst others who presented here due to nonhealing upper back wound. Wound was said to have been noted by family in January. Patient believes that she had a rash that she kept picking at and which subsequently worsened to its current state. She denies any known discharge from the site. She feels well otherwise and denies chills, fever, nausea, vomiting, change in her bowel habits or otherwise feeling of unwell. She has had no management of this wound. She denies any history of diabetes. She had lived alone until now but currently lives with her son and daughter-in- law. Progress of Wound: Improving. - Physical Exam Vital Signs Temp Pulse Resp BP 97.1 F L 66 16 146/77 H 03/18/17 09:27 03/18/17 09:27 03/18/17 09:27 03/18/17 09:27 General: Alert, Oriented x3, Cooperative, No apparent distress HEENT: Atraumatic, Normocephalic Oral: Moist Mucosa Neck: Supple Lungs: Normal air movement Cardiovascular: Regular rate Extremities: No cyanosis Skin: Ulcer/ Wound Wound Measurements and Assessment - Nurse 1 - General Ulcer Measurement Start: 03/11/17 08:26 Freq: Status: Active Protocol: Activity Type Activity Date Activity User E-Sign Co-Sign Detail Recorded Client Recorded Date Recorded By Document 03/18/17 09:27 [facility] [id number] 03/18/17 09:33 [facility] 03/18/17 09:27 Wound Center Nurse 1 [Ulcer Assessment Protocol: KAYLI.WD.LOC] #1 Upper Back - Midline -Combined with other wound No -Current Size (cm) - Length 1.6 -Current Size (cm) - Width 4.1 -Current Size (cm) - Depth 0.1 -Total Square Cm 6.56 -Photo Taken No -Epithelialization Small 1-33% -Tunneling No -Undermining/Tunneling No -Exudate Amt Small (1-33%) -Exudate Type Serosanguineous -Wound Margin Distinct, Outline Attached -Granulation Amt Large (67-100%) -Granulation Quality Red -Slough/Fibrin No -Necrosis Amt None Present (0 %) -Texture (Raquel-wound Skin Appearance) Scarring -Moisture (Raquel-wound Skin Appearance Assessed ) Dry/Scaly -Color (Raquel-wound Skin Appearance) Assessed -Temperature (Raquel-wound Skin No Abnormality Appearance) (Pt Warm) -Tenderness on Palpation (Raquel-wound No Skin Appearance) -Ulcer Cleansing Rinsed/ Irrigated with Saline -Foul Odor after Cleansing No -Anesthetic Used 4% Lidocaine Solution WC - Nurse 2 - General Ulcer CM Notes Start: 03/11/17 08:26 Freq: Status: Active Protocol: Activity Type Activity Date Activity User E-Sign Co-Sign Detail Recorded Client Recorded Date Recorded By Document 03/18/17 09:53 DV [id number] 03/18/17 09:54 DV 03/18/17 09:53 Wound Center Nurse 2 [Procedure/Treatment] -Time 09:54 -Correct Patient Yes -Correct Side, Site, Position Yes -Correct Procedure Yes -Procedure Performed Yes -Type of Procedure Debridement -Clinical Debridement Subcutaneous -Post Debridement Size (cm) - Length 1.1 -Post Debridement Size (cm) - Width 4.1 -Post Debridement Size (cm) - Depth 0.1 -Total Square Cm 4.51 -Wound/Ulcer Outcome Not Healed -Ulcer Cleansing Rinsed/ Irrigated with Saline -Foul Odor after Cleansing No -Bioengineered Tissue No -Bleeding Controlled with Pressure -Treatment Response Procedure Tolerated Well [See Physician Procedure note for Specifics] Pain Scale: 0-10 Numeric [Pain] -Is Patient Pain Free? Yes Musculoskeletal: No Muscle Wasting Neurological: Cranial nerves II-XII grossly intact Psych/Mental Status: Normal Affect Debridement Note Post-Debridement Measurements/Treatment WC - Nurse 2 - General Ulcer CM Notes Start: 03/11/17 08:26 Freq: Status: Active Protocol: Activity Type Activity Date Activity User E-Sign Co-Sign Detail Recorded Client Recorded Date Recorded By Document 02/01/18 09:17 DV [id number] 03/11/17 09:22 DV Document 03/18/17 09:53 DV [id number] 03/18/17 09:54 DV 03/11/17 03/18/17 09:17 09:53 Wound Center Nurse 2 #1 Upper Back - Midline -Time : 09:54 -Correct Patient Yes Yes -Correct Side, Site, Position Yes Yes -Correct Procedure Yes Yes -Procedure Performed Yes Yes -Type of Procedure Debridement Debridement -Clinical Debridement Subcutaneous Subcutaneous -Post Debridement Size (cm) - Length 1.5 1.1 -Post Debridement Size (cm) - Width 4.7 4.1 -Post Debridement Size (cm) - Depth 0.1 0.1 -Total Square Cm 7.05 4.51 -Wound/Ulcer Outcome Not Healed Not Healed -Ulcer Cleansing Rinsed/ Rinsed/ Irrigated with Irrigated with Saline Saline -Foul Odor after Cleansing No No -Bioengineered Tissue No No -Cetacaine [place] No -Bleeding Controlled with Pressure Pressure -Treatment Response Procedure Procedure Tolerated Well Tolerated Well Pain Scale: 0-10 Numeric Is Patient Pain Free? 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 Plan: Continued wound progress. No new complaints at this time. Debridement as documented in clinical panel. Continue Aquacel extra with Adaptic covering. Change daily. Continue protein rich diet and supplements. Follow-up in 1 week. This note was generated with [employer] dictation software. It may contain incorrect words, spelling, and punctuation that were not noted in checking the note before signing.
[2017-03-25 09:33] VITALS: BP 122/78; PULSE 62; RESP 16; TEMP 35.6; BMI 28.7
--- NOTE | 2017-03-25 10:04 | PCM.WC.PN ---
(1) Chronic ulcer of back Status: Acute Current Visit: Yes Code(s): L98.429 - Non-pressure chronic ulcer of back with unspecified severity (2) Essential (primary) hypertension Status: Chronic Current Visit: No Code(s): I10 - Essential (primary) hypertension (3) Hypothyroidism Status: Chronic Current Visit: No Code(s): E03.9 - Hypothyroidism, unspecified Type of Wound Date of Service: 03/25/17 Chief Complaint: Upper Back Ulcer. History of Wound: Ms Ty is a pleasant 82-year-old with past medical history of CKD, hypothyroidism and hypertension amongst others who presented here due to nonhealing upper back wound. Wound was said to have been noted by family in January. Patient believes that she had a rash that she kept picking at and which subsequently worsened to its current state. She denies any known discharge from the site. She feels well otherwise and denies chills, fever, nausea, vomiting, change in her bowel habits or otherwise feeling of unwell. She has had no management of this wound. She denies any history of diabetes. She had lived alone until now but currently lives with her son and [id number]. Progress of Wound: Improving. - Physical Exam Vital Signs Temp Pulse Resp BP 96.0 F L 62 16 122/78 H 03/25/17 09:33 03/25/17 09:33 03/25/17 09:33 03/25/17 09:33 General: Alert, Oriented x3, Cooperative, No apparent distress HEENT: Atraumatic, Normocephalic Oral: Moist Mucosa Neck: Supple Lungs: Normal air movement Cardiovascular: Regular rate Skin: Ulcer/ Wound Wound Measurements and Assessment - Nurse 1 - General Ulcer Measurement Start: 03/11/17 08:26 Freq: Status: Active Protocol: Activity Type Activity Date Activity User E-Sign Co-Sign Detail Recorded Client Recorded Date Recorded By Document 03/25/17 09:33 DV [id number] 03/25/17 09:47 DV 03/25/17 09:33 Wound Center Nurse 1 [Ulcer Assessment Protocol: WC.WD.LOC] #1 Upper Back - Midline -Combined with other wound No -Current Size (cm) - Length 3.3 -Current Size (cm) - Width 0.5 -Current Size (cm) - Depth 0.1 -Total Square Cm 1.65 -Photo Taken No -Epithelialization Medium 34-66% -Tunneling No -Undermining/Tunneling No -Circular Undermining No -Classification - Thickness Full Thickness without Exposed Support Structure -Exudate Amt Medium (34-66%) -Exudate Type Serous -Wound Margin Distinct, Outline Attached -Granulation Amt Small (1-33%) -Granulation Quality Red -Slough/Fibrin Yes -Necrosis Amt Small (1-33%) -Necrotic Tissue Type Adherent Slough -Structure Exposed None/Limited to Skin Breakdown -Texture (Raquel-wound Skin Appearance) No Abnormality Assessed -Moisture (Raquel-wound Skin Appearance No Abnormality ) Assessed [place] -Color (Raquel-wound Skin Appearance) No Abnormality Assessed -Temperature (Raquel-wound Skin No Abnormality Appearance) (Pt Warm) -Ulcer Cleansing Rinsed/ Irrigated with Saline -Foul Odor after Cleansing Yes -Anesthetic Used 5% Lidocaine Gel [Edema Assessment] -Lower Limb Edema Present No WC - Nurse 2 - General Ulcer CM Notes Start: 03/11/17 08:26 Freq: Status: Active Protocol: Activity Type Activity Date Activity User E-Sign Co-Sign Detail Recorded Client Recorded Date Recorded By Document 03/25/17 09:33 DV [id number] 03/25/17 09:47 DV 03/25/17 09:33 Wound Center Nurse 2 [Procedure/Treatment] #1 Upper Back - Midline -Time 09:46 -Correct Patient Yes -Correct Side, Site, Position Yes -Correct Procedure Yes -Procedure Performed Yes -Type of Procedure Debridement -Clinical Debridement Subcutaneous -Post Debridement Size (cm) - Length 0.6 -Post Debridement Size (cm) - Width 3.4 -Post Debridement Size (cm) - Depth 0.1 -Total Square Cm 2.04 -Wound/Ulcer Outcome Not Healed -Ulcer Cleansing Rinsed/ Irrigated with Saline -Foul Odor after Cleansing No -Bioengineered Tissue No -Bleeding Controlled with Pressure -Treatment Response Procedure Tolerated Well Musculoskeletal: No Muscle Wasting Neurological: Cranial nerves II-XII grossly intact Psych/Mental Status: Normal Affect Debridement Note Post-Debridement Measurements/Treatment WC - Nurse 2 - General Ulcer CM Notes Start: 03/11/17 08:26 Freq: Status: Active Protocol: Activity Type Activity Date Activity User E-Sign Co-Sign Detail Recorded Client Recorded Date Recorded By Document 03/11/17 09:17 DV [id number] 03/11/17 09:22 DV Document 03/18/17 09:53 DV [id number] 03/18/17 09:54 DV Document 03/25/17 09:33 DV [id number] 03/25/17 09:47 DV 03/11/17 03/18/17 03/25/17 09:17 09:53 09:33 Wound Center Nurse 2 #1 Upper Back - Midline -Time 09:17 09:54 09:46 -Correct Patient Yes Yes Yes -Correct Side, Site, Position Yes Yes Yes -Correct Procedure Yes Yes Yes -Procedure Performed Yes Yes Yes -Type of Procedure Debridement Debridement Debridement -Clinical Debridement Subcutaneous Subcutaneous Subcutaneous -Post Debridement Size (cm) - Length 1.5 1.1 0.6 -Post Debridement Size (cm) - Width 4.7 4.1 3.4 -Post Debridement Size (cm) - Depth 0.1 0.1 0.1 -Total Square Cm 7.05 4.51 2.04 -Wound/Ulcer Outcome Not Healed Not Healed Not Healed -Ulcer Cleansing Rinsed/ Rinsed/ Rinsed/ Irrigated with Irrigated with Irrigated with Saline Saline Saline -Foul Odor after Cleansing No No No -Bioengineered Tissue No No No -Cetacaine [place] No -Bleeding Controlled with Pressure Pressure Pressure -Treatment Response Procedure Procedure Procedure Tolerated Well Tolerated Well Tolerated Well Pain Scale: 0-10 Numeric Is Patient Pain Free? 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 Plan: Wound continues to show good progress/healing. Debridement as documented above. Continue Aquacel extra with Adaptic covering daily. Continue protein rich diet and supplements. Follow-up in 1 week. This note was generated with [employer] software. It may contain incorrect words, spelling, and punctuation that were not noted in checking the note before signing.
--- NOTE | 2017-03-25 10:07 | PN.PCM_ITS ---
(1) Chronic ulcer of back Status: Acute Current Visit: Yes Code(s): L98.429 - Non-pressure chronic ulcer of back with unspecified severity (2) Essential (primary) hypertension Status: Chronic Current Visit: No Code(s): I10 - Essential (primary) hypertension (3) Hypothyroidism Status: Chronic Current Visit: No Code(s): E03.9 - Hypothyroidism, unspecified Type of Wound Date of Service: 03/25/17 Chief Complaint: Upper Back Ulcer. History of Wound: Ms Ty is a pleasant 82-year-old with past medical history of CKD, hypothyroidism and hypertension amongst others who presented here due to nonhealing upper back wound. Wound was said to have been noted by family in January. Patient believes that she had a rash that she kept picking at and which subsequently worsened to its current state. She denies any known discharge from the site. She feels well otherwise and denies chills, fever, nausea, vomiting, change in her bowel habits or otherwise feeling of unwell. She has had no management of this wound. She denies any history of diabetes. She had lived alone until now but currently lives with her son and daughter-in- law. Progress of Wound: Improving. - Physical Exam Vital Signs Temp Pulse Resp BP 96.0 F L 62 16 122/78 H 03/25/17 09:33 03/25/17 09:33 03/25/17 09:33 03/25/17 09:33 General: Alert, Oriented x3, Cooperative, No apparent distress HEENT: Atraumatic, Normocephalic Oral: Moist Mucosa Neck: Supple Lungs: Normal air movement Cardiovascular: Regular rate Skin: Ulcer/ Wound Wound Measurements and Assessment - Nurse 1 - General Ulcer Measurement Start: 03/11/17 08:26 Freq: Status: Active Protocol: Activity Type Activity Date Activity User E-Sign Co-Sign Detail Recorded Client Recorded Date Recorded By Document 03/25/17 09:33 DV [id number] 03/25/17 09:47 DV 03/25/17 09:33 Wound Center Nurse 1 [Ulcer Assessment Protocol: WC.WD.LOC] #1 Upper Back - Midline -Combined with other wound No -Current Size (cm) - Length 3.3 -Current Size (cm) - Width 0.5 -Current Size (cm) - Depth 0.1 -Total Square Cm 1.65 -Photo Taken No -Epithelialization Medium 34-66% -Tunneling No -Undermining/Tunneling No -Circular Undermining No -Classification - Thickness Full Thickness without Exposed Support Structure -Exudate Amt Medium (34-66%) -Exudate Type Serous -Wound Margin Distinct, Outline Attached -Granulation Amt Small (1-33%) -Granulation Quality Red -Slough/Fibrin Yes -Necrosis Amt Small (1-33%) -Necrotic Tissue Type Adherent Slough -Structure Exposed None/Limited to Skin Breakdown -Texture (Raquel-wound Skin Appearance) No Abnormality Assessed -Moisture (Raquel-wound Skin Appearance No Abnormality ) Assessed Weeping -Color (Raquel-wound Skin Appearance) No Abnormality Assessed -Temperature (Raquel-wound Skin No Abnormality Appearance) (Pt Warm) -Ulcer Cleansing Rinsed/ Irrigated with Saline -Foul Odor after Cleansing Yes -Anesthetic Used 5% Lidocaine Gel [Edema Assessment] -Lower Limb Edema Present No WC - Nurse 2 - General Ulcer CM Notes Start: 03/11/17 08:26 Freq: Status: Active Protocol: Activity Type Activity Date Activity User E-Sign Co-Sign Detail Recorded Client Recorded Date Recorded By Document 03/25/17 09:33 DV [id number] 03/25/17 09:47 DV 03/25/17 09:33 Wound Center Nurse 2 [Procedure/Treatment] #1 Upper Back - Midline -Time 09:46 -Correct Patient Yes -Correct Side, Site, Position Yes -Correct Procedure Yes -Procedure Performed Yes -Type of Procedure Debridement -Clinical Debridement Subcutaneous -Post Debridement Size (cm) - Length 0.6 -Post Debridement Size (cm) - Width 3.4 -Post Debridement Size (cm) - Depth 0.1 -Total Square Cm 2.04 -Wound/Ulcer Outcome Not Healed -Ulcer Cleansing Rinsed/ Irrigated with Saline -Foul Odor after Cleansing No -Bioengineered Tissue No -Bleeding Controlled with Pressure -Treatment Response Procedure Tolerated Well Musculoskeletal: No Muscle Wasting Neurological: Cranial nerves II-XII grossly intact Psych/Mental Status: Normal Affect Debridement Note Post-Debridement Measurements/Treatment WC - Nurse 2 - General Ulcer CM Notes Start: 03/11/17 08:26 Freq: Status: Active Protocol: Activity Type Activity Date Activity User E-Sign Co-Sign Detail Recorded Client Recorded Date Recorded By Document 03/11/17 09:17 DV [id number] 03/11/17 09:22 DV Document 03/18/17 09:53 DV [id number] 03/18/17 09:54 DV Document 03/25/17 09:33 DV [id number] 03/25/17 09:47 DV 03/11/17 03/18/17 03/25/17 09:17 09:53 09:33 Wound Center Nurse 2 #1 Upper Back - Midline -Time 09:17 09:54 09:46 -Correct Patient Yes Yes Yes -Correct Side, Site, Position Yes Yes Yes -Correct Procedure Yes Yes Yes -Procedure Performed Yes Yes Yes -Type of Procedure Debridement Debridement Debridement -Clinical Debridement Subcutaneous Subcutaneous Subcutaneous -Post Debridement Size (cm) - Length 1.5 1.1 0.6 -Post Debridement Size (cm) - Width 4.7 4.1 3.4 -Post Debridement Size (cm) - Depth 0.1 0.1 0.1 -Total Square Cm 7.05 4.51 2.04 -Wound/Ulcer Outcome Not Healed Not Healed Not Healed -Ulcer Cleansing Rinsed/ Rinsed/ Rinsed/ Irrigated with Irrigated with Irrigated with Saline Saline Saline -Foul Odor after Cleansing No No No -Bioengineered Tissue No No No -Cetacaine [place] No -Bleeding Controlled with Pressure Pressure Pressure -Treatment Response Procedure Procedure Procedure Tolerated Well Tolerated Well Tolerated Well Pain Scale: 0-10 Numeric Is Patient Pain Free? 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 Plan: Wound continues to show good progress/healing. Debridement as documented above. Continue Aquacel extra with Adaptic covering daily. Continue protein rich diet and supplements. Follow-up in 1 week. This note was generated with [employer] software. It may contain incorrect words, spelling, and punctuation that were not noted in checking the note before signing.
== END 2017-04-07 23:59 ==
LOC: WC 09:00
PROVIDERS: Family Provider Family Medicine; PCP Family Medicine; Visit Provider Internal Medicine
DX: L98.422 Non-pressure chronic ulcer of back with fat layer exposed (principal); E03.9 Hypothyroidism, unspecified; I12.9 Hypertensive chronic kidney disease with stage 1 through stage 4 chronic kidney disease, or unspecified chronic kidney disease; N18.9 Chronic kidney disease, unspecified
CPT/HCPCS: 11042

== ENCOUNTER → 2017-03-25 10:22 | Outpatient (CLI) | payer MEDICARE, OTHER, SELFPAY ==
--- NOTE | 2017-03-25 12:32 | MRI_ITS ---
STUDY: MRI BRAIN WITHOUT CONTRAST REASON FOR EXAM: Female, 82 years old. Confusion and memory loss x6 months. TECHNIQUE: Standardized multiplanar fat and water weighted pulse sequences were obtained. COMPARISON: 05/23/2015. FINDINGS: No restricted diffusion to suspect acute or subacute ischemic infarct. Normal size of the ventricles and extra-axial spaces for the patient's age. Subcortical and periventricular white matter T2 FLAIR hyperintensity foci are chronic white matter ischemic changes. Normal bilateral basal ganglia. Normal thalami. There is no extra-axial fluid accumulation. Normal flow voids within the major intracranial circulation suggesting patency by spin echo criteria. Normal sella turcica, pituitary gland, infundibular stalk, optic chiasm and hypothalamus. Normal tectal plate and pineal gland. Normal midbrain, ammy and medulla. Normal cerebellum. Normal basal cisterns. Normal bilateral temporal bones. Normal bilateral internal auditory canals. No demonstrated orbital abnormality, within the constraints of a routine brain study. Pronounced mucosal thickening of the right sphenoid sinus is unchanged. Normal calvarium and skull base. Normal visualized soft tissue structures. Normal visualized upper cervical spine. MRI/Brain without Contrast IMPRESSION: 1. No MRI evidence of acute or subacute ischemic infarct. 2. Chronic white matter ischemic changes in both cerebral hemispheres. 3. Chronic right sphenoid sinusitis. 4. No interval changes when compared to 05/23/2015. Electronically Signed: Emanuel Thornton MD at 15:48 EST , Service support ,
[2017-03-25 12:47] LABS: Cholesterol 180 mg/dL (200); High Density Lipoprotein 43 mg/dL; Thyroid Stim Hormone (TSH) 0.98 uIU/mL (0.358-3.74); Triglycerides 200 mg/dL; Very Low Density Lipoprotein 40 mg/dL (5-40)
[2017-03-25 12:54] LABS: Homocysteine 19.8 umol/L (3.2-10.7)
[2017-03-26 09:02] LABS: Vitamin B12 387 pg/mL (211-911)
== END ==
PROVIDERS: Family Provider Family Medicine; PCP Family Medicine; Visit Provider Psychiatry & Neurology Neurology
DX: I67.9 Cerebrovascular disease, unspecified (principal); R41.0 Disorientation, unspecified; L98.422 Non-pressure chronic ulcer of back with fat layer exposed; E03.9 Hypothyroidism, unspecified; I12.9 Hypertensive chronic kidney disease with stage 1 through stage 4 chronic kidney disease, or unspecified chronic kidney disease; N18.9 Chronic kidney disease, unspecified
CPT/HCPCS: 11042; 36415; 70551; 80061; 82607; 82746; 83090; 84443

== ENCOUNTER 2017-04-22 08:30 | Outpatient (RCR) | payer MEDICARE, OTHER, SELFPAY ==
[2017-04-08 00:54] VITALS: BP 146/77; PULSE 62; RESP 16; TEMP 35.6; BMI 28.7
[2017-04-08 08:30] VITALS: BP 162/80; PULSE 72; RESP 18; TEMP 35.4; BMI 28.7
--- NOTE | 2017-04-08 10:33 | PCM.WC.PN ---
(1) Chronic ulcer of back Status: Chronic Current Visit: No Code(s): L98.429 - Non-pressure chronic ulcer of back with unspecified severity (2) Essential (primary) hypertension Status: Chronic Current Visit: No Code(s): I10 - Essential (primary) hypertension (3) Hypothyroidism Status: Chronic Current Visit: No Code(s): E03.9 - Hypothyroidism, unspecified Type of Wound Date of Service: 04/08/17 Chief Complaint: Upper Back Ulcer. History of Wound: Ms Ty is a pleasant 82-year-old with past medical history of CKD, hypothyroidism and hypertension amongst others who presented here due to nonhealing upper back wound. Wound was said to have been noted by family in January. Patient believes that she had a rash that she kept picking at and which subsequently worsened to its current state. She denies any known discharge from the site. She feels well otherwise and denies chills, fever, nausea, vomiting, change in her bowel habits or otherwise feeling of unwell. She has had no management of this wound. She denies any history of diabetes. She had lived alone until now but currently lives with her son and [id number]. Progress of Wound: Improving. - Physical Exam Vital Signs Temp Pulse Resp BP 95.7 F L 72 18 162/80 H 04/08/17 08:30 04/08/17 08:30 04/08/17 08:30 04/08/17 08:30 General: Alert, Oriented x3, Cooperative, No apparent distress HEENT: Atraumatic, Normocephalic Oral: Moist Mucosa Neck: Supple Lungs: Normal air movement Cardiovascular: Regular rate Skin: Ulcer/ Wound Wound Measurements and Assessment WC - Nurse 1 - General Ulcer Measurement Start: 04/08/17 08:30 Freq: Status: Active Protocol: Activity Type Activity Date Activity User E-Sign Co-Sign Detail Recorded Client Recorded Date Recorded By Document 04/08/17 08:30 DV [id number] 04/08/17 08:37 DV 04/08/17 08:30 Wound Center Nurse 1 [Ulcer Assessment] #1 Upper Back - Midline -Combined with other wound No -Current Size (cm) - Length 3.5 -Current Size (cm) - Width 0.5 -Current Size (cm) - Depth 0.1 -Total Square Cm 1.75 -Photo Taken No -Epithelialization Small 1-33% -Tunneling No -Undermining/Tunneling No -Circular Undermining No -Classification - Thickness Full Thickness without Exposed Support Structure -Exudate Amt Medium (34-66%) -Exudate Type Serosanguineous -Wound Margin Flat & Intact -Granulation Amt Small (1-33%) -Granulation Quality Pale -Slough/Fibrin Yes -Necrosis Amt Large (67-100%) -Necrotic Tissue Type Adherent Slough -Structure Exposed N/A -Texture (Raquel-wound Skin Appearance) Scarring -Moisture (Raquel-wound Skin Appearance Dry/Scaly ) -Color (Raquel-wound Skin Appearance) No Abnormality -Temperature (Raquel-wound Skin No Abnormality Appearance) (Pt Warm) -Tenderness on Palpation (Raquel-wound No Skin Appearance) -Ulcer Cleansing Wound Cleanser -Foul Odor after Cleansing No -Anesthetic Used 4% Lidocaine Solution WC - Nurse 2 - General Ulcer CM Notes Start: 04/08/17 08:30 Freq: Status: Active Protocol: Activity Type Activity Date Activity User E-Sign Co-Sign Detail Recorded Client Recorded Date Recorded By Document 04/08/17 09:00 DV [id number] 04/08/17 09:02 DV 04/08/17 09:00 Wound Center Nurse 2 [Procedure/Treatment] -Time 09:00 -Correct Patient Yes -Correct Side, Site, Position Yes -Correct Procedure Yes -Procedure Performed Yes -Type of Procedure Debridement -Clinical Debridement Subcutaneous -Post Debridement Size (cm) - Length 3.5 -Post Debridement Size (cm) - Width 0.8 -Post Debridement Size (cm) - Depth 0.1 -Total Square Cm 2.80 -Wound/Ulcer Outcome Not Healed -Ulcer Cleansing Rinsed/ Irrigated with Saline -Foul Odor after Cleansing No -Bioengineered Tissue No -Bleeding Controlled with Pressure -Treatment Response Procedure Tolerated Well [See Physician Procedure note for Specifics] Pain Scale: 0-10 Numeric [Pain] -Is Patient Pain Free? Yes Musculoskeletal: No Muscle Wasting Neurological: Cranial nerves II-XII grossly intact Psych/Mental Status: Normal Affect Debridement Note Post-Debridement Measurements/Treatment WC - Nurse 2 - General Ulcer CM Notes Start: 04/08/17 08:30 Freq: Status: Active Protocol: Activity Type Activity Date Activity User E-Sign Co-Sign Detail Recorded Client Recorded Date Recorded By Document 04/08/17 09:00 DV [id number] 04/08/17 09:02 DV 04/08/17 09:00 Wound Center Nurse 2 #1 Upper Back - Midline -Time 09:00 -Correct Patient Yes -Correct Side, Site, Position Yes -Correct Procedure Yes -Procedure Performed Yes -Type of Procedure Debridement -Clinical Debridement Subcutaneous -Post Debridement Size (cm) - Length 3.5 -Post Debridement Size (cm) - Width 0.8 -Post Debridement Size (cm) - Depth 0.1 -Total Square Cm 2.80 -Wound/Ulcer Outcome Not Healed -Ulcer Cleansing Rinsed/ Irrigated with Saline -Foul Odor after Cleansing No -Bioengineered Tissue No -Bleeding Controlled with Pressure -Treatment Response Procedure Tolerated Well Pain Scale: 0-10 Numeric Is Patient Pain Free? 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 Plan: Wound continues to show good progress/healing. Anticipate complete healing in a week. Debridement as documented above. Continue Aquacel extra moistened with Adaptic covering daily. Continue protein rich diet and supplements. Follow-up in 1 week. This note was generated with [employer] dictation software. It may contain incorrect words, spelling, and punctuation that were not noted in checking the note before signing.
--- NOTE | 2017-04-08 10:36 | PN.PCM_ITS ---
(1) Chronic ulcer of back Status: Chronic Current Visit: No Code(s): L98.429 - Non-pressure chronic ulcer of back with unspecified severity (2) Essential (primary) hypertension Status: Chronic Current Visit: No Code(s): I10 - Essential (primary) hypertension (3) Hypothyroidism Status: Chronic Current Visit: No Code(s): E03.9 - Hypothyroidism, unspecified Type of Wound Date of Service: 04/08/17 Chief Complaint: Upper Back Ulcer. History of Wound: Ms Ty is a pleasant 82-year-old with past medical history of CKD, hypothyroidism and hypertension amongst others who presented here due to nonhealing upper back wound. Wound was said to have been noted by family in January. Patient believes that she had a rash that she kept picking at and which subsequently worsened to its current state. She denies any known discharge from the site. She feels well otherwise and denies chills, fever, nausea, vomiting, change in her bowel habits or otherwise feeling of unwell. She has had no management of this wound. She denies any history of diabetes. She had lived alone until now but currently lives with her son and daughter-in- law. Progress of Wound: Improving. - Physical Exam Vital Signs Temp Pulse Resp BP 95.7 F L 72 18 162/80 H 04/08/17 08:30 04/08/17 08:30 04/08/17 08:30 04/08/17 08:30 General: Alert, Oriented x3, Cooperative, No apparent distress HEENT: Atraumatic, Normocephalic Oral: Moist Mucosa Neck: Supple Lungs: Normal air movement Cardiovascular: Regular rate Skin: Ulcer/ Wound Wound Measurements and Assessment WC - Nurse 1 - General Ulcer Measurement Start: 04/08/17 08:30 Freq: Status: Active Protocol: Activity Type Activity Date Activity User E-Sign Co-Sign Detail Recorded Client Recorded Date Recorded By Document 04/08/17 08:30 DV [id number] 04/08/17 08:37 DV 04/08/17 08:30 Wound Center Nurse 1 [Ulcer Assessment] #1 Upper Back - Midline -Combined with other wound No -Current Size (cm) - Length 3.5 -Current Size (cm) - Width 0.5 -Current Size (cm) - Depth 0.1 -Total Square Cm 1.75 -Photo Taken No -Epithelialization Small 1-33% -Tunneling No -Undermining/Tunneling No -Circular Undermining No -Classification - Thickness Full Thickness without Exposed Support Structure -Exudate Amt Medium (34-66%) -Exudate Type Serosanguineous -Wound Margin Flat & Intact -Granulation Amt Small (1-33%) -Granulation Quality Pale -Slough/Fibrin Yes -Necrosis Amt Large (67-100%) -Necrotic Tissue Type Adherent Slough -Structure Exposed N/A -Texture (Raquel-wound Skin Appearance) Scarring -Moisture (Raquel-wound Skin Appearance Dry/Scaly ) -Color (Raquel-wound Skin Appearance) No Abnormality -Temperature (Raquel-wound Skin No Abnormality Appearance) (Pt Warm) -Tenderness on Palpation (Raquel-wound No Skin Appearance) -Ulcer Cleansing Wound Cleanser -Foul Odor after Cleansing No -Anesthetic Used 4% Lidocaine Solution WC - Nurse 2 - General Ulcer CM Notes Start: 04/08/17 08:30 Freq: Status: Active Protocol: Activity Type Activity Date Activity User E-Sign Co-Sign Detail Recorded Client Recorded Date Recorded By Document 04/08/17 09:00 DV [id number] 04/08/17 09:02 DV 04/08/17 09:00 Wound Center Nurse 2 [Procedure/Treatment] -Time 09:00 -Correct Patient Yes -Correct Side, Site, Position Yes -Correct Procedure Yes -Procedure Performed Yes -Type of Procedure Debridement -Clinical Debridement Subcutaneous -Post Debridement Size (cm) - Length 3.5 -Post Debridement Size (cm) - Width 0.8 -Post Debridement Size (cm) - Depth 0.1 -Total Square Cm 2.80 -Wound/Ulcer Outcome Not Healed -Ulcer Cleansing Rinsed/ Irrigated with Saline -Foul Odor after Cleansing No -Bioengineered Tissue No -Bleeding Controlled with Pressure -Treatment Response Procedure Tolerated Well [See Physician Procedure note for Specifics] Pain Scale: 0-10 Numeric [Pain] -Is Patient Pain Free? Yes Musculoskeletal: No Muscle Wasting Neurological: Cranial nerves II-XII grossly intact Psych/Mental Status: Normal Affect Debridement Note Post-Debridement Measurements/Treatment WC - Nurse 2 - General Ulcer CM Notes Start: 04/08/17 08:30 Freq: Status: Active Protocol: Activity Type Activity Date Activity User E-Sign Co-Sign Detail Recorded Client Recorded Date Recorded By Document 04/08/17 09:00 DV [id number] 04/08/17 09:02 DV 04/08/17 09:00 Wound Center Nurse 2 #1 Upper Back - Midline -Time 09:00 -Correct Patient Yes -Correct Side, Site, Position Yes -Correct Procedure Yes -Procedure Performed Yes -Type of Procedure Debridement -Clinical Debridement Subcutaneous -Post Debridement Size (cm) - Length 3.5 -Post Debridement Size (cm) - Width 0.8 -Post Debridement Size (cm) - Depth 0.1 -Total Square Cm 2.80 -Wound/Ulcer Outcome Not Healed -Ulcer Cleansing Rinsed/ Irrigated with Saline -Foul Odor after Cleansing No -Bioengineered Tissue No -Bleeding Controlled with Pressure -Treatment Response Procedure Tolerated Well Pain Scale: 0-10 Numeric Is Patient Pain Free? 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 Plan: Wound continues to show good progress/healing. Anticipate complete healing in a week. Debridement as documented above. Continue Aquacel extra moistened with Adaptic covering daily. Continue protein rich diet and supplements. Follow-up in 1 week. This note was generated with [employer] dictation software. It may contain incorrect words, spelling, and punctuation that were not noted in checking the note before signing.
[2017-04-15 09:20] VITALS: BP 142/94; PULSE 63; RESP 20; TEMP 35.2; BMI 28.7
--- NOTE | 2017-04-15 10:22 | PCM.WC.PN ---
(1) Chronic ulcer of back Status: Chronic Current Visit: No Code(s): L98.429 - Non-pressure chronic ulcer of back with unspecified severity (2) Essential (primary) hypertension Status: Chronic Current Visit: No Code(s): I10 - Essential (primary) hypertension (3) Hypothyroidism Status: Chronic Current Visit: No Code(s): E03.9 - Hypothyroidism, unspecified Type of Wound Date of Service: 04/15/17 Chief Complaint: Upper Back Ulcer. History of Wound: Ms Ty is a pleasant 82-year-old with past medical history of CKD, hypothyroidism and hypertension amongst others who presented here due to nonhealing upper back wound. Wound was said to have been noted by family in January. Patient believes that she had a rash that she kept picking at and which subsequently worsened to its current state. She denies any known discharge from the site. She feels well otherwise and denies chills, fever, nausea, vomiting, change in her bowel habits or otherwise feeling of unwell. She has had no management of this wound. She denies any history of diabetes. She had lived alone until now but currently lives with her son and [id number]. Progress of Wound: Opening of previously closed out area during dressing change. - Physical Exam Vital Signs Temp Pulse Resp BP 95.3 F L 63 20 H 142/94 H 04/15/17 09:20 04/15/17 09:20 04/15/17 09:20 04/15/17 09:20 General: Alert, Oriented x3, Cooperative, No apparent distress HEENT: Atraumatic, Normocephalic Oral: Moist Mucosa Neck: Supple Lungs: Normal air movement Cardiovascular: Regular rate Skin: Ulcer/ Wound Wound Measurements and Assessment WC - Nurse 1 - General Ulcer Measurement Start: 04/08/17 08:30 Freq: Status: Active Protocol: Activity Type Activity Date Activity User E-Sign Co-Sign Detail Recorded Client Recorded Date Recorded By Document 04/15/17 09:20 SHAWNA [id number] 04/15/17 09:33 SHAWNA 04/15/17 09:20 Wound Center Nurse 1 [Ulcer Assessment] #1 Upper Back - Midline -Combined with other wound No -Current Size (cm) - Length 0.9 -Current Size (cm) - Width 5.0 -Current Size (cm) - Depth 0.1 -Total Square Cm 4.50 -Date of Last Picture (Recall this 03/25/17 field) -Photo Taken No -Epithelialization Medium 34-66% -Tunneling No -Undermining/Tunneling No -Circular Undermining No -Classification - Thickness Full Thickness without Exposed Support Structure -Exudate Amt Small (1-33%) -Exudate Type Serosanguineous -Wound Margin Distinct, Outline Attached -Granulation Amt Medium (34-66%) -Granulation Quality Pale [place] -Slough/Fibrin Yes -Necrosis Amt None Present (0 %) -Necrotic Tissue Type Adherent Slough -Structure Exposed N/A -Texture (Raquel-wound Skin Appearance) No Abnormality -Moisture (Raquel-wound Skin Appearance No Abnormality ) -Color (Raquel-wound Skin Appearance) No Abnormality -Temperature (Raquel-wound Skin No Abnormality Appearance) (Pt Warm) -Tenderness on Palpation (Raquel-wound No Skin Appearance) -Ulcer Cleansing Rinsed/ Irrigated with Saline -Foul Odor after Cleansing No -Anesthetic Used 4% Lidocaine Solution WC - Nurse 2 - General Ulcer CM Notes Start: 04/08/17 08:30 Freq: Status: Active Protocol: Activity Type Activity Date Activity User E-Sign Co-Sign Detail Recorded Client Recorded Date Recorded By Document 04/15/17 10:02 DV [id number] 04/15/17 10:07 DV 04/15/17 10:02 Wound Center Nurse 2 [Procedure/Treatment] -Time 10:04 -Correct Patient Yes -Correct Side, Site, Position Yes -Correct Procedure Yes -Procedure Performed Yes -Type of Procedure Debridement -Clinical Debridement Subcutaneous -Post Debridement Size (cm) - Length 5.0 -Post Debridement Size (cm) - Width 0.9 -Post Debridement Size (cm) - Depth 0.1 -Total Square Cm 4.50 -Wound/Ulcer Outcome Not Healed -Ulcer Cleansing Rinsed/ Irrigated with Saline -Foul Odor after Cleansing No -Bioengineered Tissue No -Bleeding Controlled with Pressure -Treatment Response Procedure Tolerated Well [See Physician Procedure note for Specifics] Pain Scale: 0-10 Numeric [Pain] -Is Patient Pain Free? Yes Musculoskeletal: No Muscle Wasting Neurological: Cranial nerves II-XII grossly intact Psych/Mental Status: Normal Affect Debridement Note Post-Debridement Measurements/Treatment WC - Nurse 2 - General Ulcer CM Notes Start: 04/08/17 08:30 Freq: Status: Active Protocol: Activity Type Activity Date Activity User E-Sign Co-Sign Detail Recorded Client Recorded Date Recorded By Document 04/08/17 09:00 DV [id number] 04/08/17 09:02 DV Document 04/15/17 10:02 DV [id number] 04/15/17 10:07 DV 04/08/17 04/15/17 09:00 10:02 Wound Center Nurse 2 #1 Upper Back - Midline -Time 09:00 10:04 -Correct Patient Yes Yes -Correct Side, Site, Position Yes Yes -Correct Procedure Yes Yes -Procedure Performed Yes Yes -Type of Procedure Debridement Debridement -Clinical Debridement Subcutaneous Subcutaneous -Post Debridement Size (cm) - Length 3.5 5.0 -Post Debridement Size (cm) - Width 0.8 0.9 -Post Debridement Size (cm) - Depth 0.1 0.1 -Total Square Cm 2.80 4.50 -Wound/Ulcer Outcome Not Healed Not Healed -Ulcer Cleansing Rinsed/ Rinsed/ Irrigated with Irrigated with Saline Saline -Foul Odor after Cleansing No No -Bioengineered Tissue No No -Bleeding Controlled with Pressure Pressure -Treatment Response Procedure Procedure Tolerated Well Tolerated Well Pain Scale: 0-10 Numeric Is Patient Pain Free? 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 Plan: New open area which was said to have happened at home during wound dressing change. Debridement as documented above. Procedure was well tolerated. Continue Aquacel extra over open areas. Advised to moisten both on application and also appropriately moisten before taking off. Xerofoam over all wound area ( Both open and epithelized ). Continue protein rich diet and supplements. Follow-up in 1 week. This note was generated with SM[employer]ation software. It may contain incorrect words, spelling, and punctuation that were not noted in checking the note before signing.
--- NOTE | 2017-04-15 10:26 | PN.PCM_ITS ---
(1) Chronic ulcer of back Status: Chronic Current Visit: No Code(s): L98.429 - Non-pressure chronic ulcer of back with unspecified severity (2) Essential (primary) hypertension Status: Chronic Current Visit: No Code(s): I10 - Essential (primary) hypertension (3) Hypothyroidism Status: Chronic Current Visit: No Code(s): E03.9 - Hypothyroidism, unspecified Type of Wound Date of Service: 04/15/17 Chief Complaint: Upper Back Ulcer. History of Wound: Ms Ty is a pleasant 82-year-old with past medical history of CKD, hypothyroidism and hypertension amongst others who presented here due to nonhealing upper back wound. Wound was said to have been noted by family in January. Patient believes that she had a rash that she kept picking at and which subsequently worsened to its current state. She denies any known discharge from the site. She feels well otherwise and denies chills, fever, nausea, vomiting, change in her bowel habits or otherwise feeling of unwell. She has had no management of this wound. She denies any history of diabetes. She had lived alone until now but currently lives with her son and daughter-in- law. Progress of Wound: Opening of previously closed out area during dressing change. - Physical Exam Vital Signs Temp Pulse Resp BP 95.3 F L 63 20 H 142/94 H 04/15/17 09:20 04/15/17 09:20 04/15/17 09:20 04/15/17 09:20 General: Alert, Oriented x3, Cooperative, No apparent distress HEENT: Atraumatic, Normocephalic Oral: Moist Mucosa Neck: Supple Lungs: Normal air movement Cardiovascular: Regular rate Skin: Ulcer/ Wound Wound Measurements and Assessment WC - Nurse 1 - General Ulcer Measurement Start: 04/08/17 08:30 Freq: Status: Active Protocol: Activity Type Activity Date Activity User E-Sign Co-Sign Detail Recorded Client Recorded Date Recorded By Document 04/15/17 09:20 SHAWNA [id number] 04/15/17 09:33 SHAWNA 04/15/17 09:20 Wound Center Nurse 1 [Ulcer Assessment] #1 Upper Back - Midline -Combined with other wound No -Current Size (cm) - Length 0.9 -Current Size (cm) - Width 5.0 -Current Size (cm) - Depth 0.1 -Total Square Cm 4.50 -Date of Last Picture (Recall this 03/25/17 field) -Photo Taken No -Epithelialization Medium 34-66% -Tunneling No -Undermining/Tunneling No -Circular Undermining No -Classification - Thickness Full Thickness without Exposed Support Structure -Exudate Amt Small (1-33%) -Exudate Type Serosanguineous -Wound Margin Distinct, Outline Attached -Granulation Amt Medium (34-66%) -Granulation Quality Pale [place] -Slough/Fibrin Yes -Necrosis Amt None Present (0 %) -Necrotic Tissue Type Adherent Slough -Structure Exposed N/A -Texture (Raquel-wound Skin Appearance) No Abnormality -Moisture (Raquel-wound Skin Appearance No Abnormality ) -Color (Raquel-wound Skin Appearance) No Abnormality -Temperature (Raquel-wound Skin No Abnormality Appearance) (Pt Warm) -Tenderness on Palpation (Raquel-wound No Skin Appearance) -Ulcer Cleansing Rinsed/ Irrigated with Saline -Foul Odor after Cleansing No -Anesthetic Used 4% Lidocaine Solution WC - Nurse 2 - General Ulcer CM Notes Start: 04/08/17 08:30 Freq: Status: Active Protocol: Activity Type Activity Date Activity User E-Sign Co-Sign Detail Recorded Client Recorded Date Recorded By Document 04/15/17 10:02 DV [id number] 04/15/17 10:07 DV 04/15/17 10:02 Wound Center Nurse 2 [Procedure/Treatment] -Time 10:04 -Correct Patient Yes -Correct Side, Site, Position Yes -Correct Procedure Yes -Procedure Performed Yes -Type of Procedure Debridement -Clinical Debridement Subcutaneous -Post Debridement Size (cm) - Length 5.0 -Post Debridement Size (cm) - Width 0.9 -Post Debridement Size (cm) - Depth 0.1 -Total Square Cm 4.50 -Wound/Ulcer Outcome Not Healed -Ulcer Cleansing Rinsed/ Irrigated with Saline -Foul Odor after Cleansing No -Bioengineered Tissue No -Bleeding Controlled with Pressure -Treatment Response Procedure Tolerated Well [See Physician Procedure note for Specifics] Pain Scale: 0-10 Numeric [Pain] -Is Patient Pain Free? Yes Musculoskeletal: No Muscle Wasting Neurological: Cranial nerves II-XII grossly intact Psych/Mental Status: Normal Affect Debridement Note Post-Debridement Measurements/Treatment WC - Nurse 2 - General Ulcer CM Notes Start: 04/08/17 08:30 Freq: Status: Active Protocol: Activity Type Activity Date Activity User E-Sign Co-Sign Detail Recorded Client Recorded Date Recorded By Document 04/08/17 09:00 DV [id number] 04/08/17 09:02 DV Document 04/15/17 10:02 DV [id number] 04/15/17 10:07 DV 04/08/17 04/15/17 09:00 10:02 Wound Center Nurse 2 #1 Upper Back - Midline -Time 09:00 10:04 -Correct Patient Yes Yes -Correct Side, Site, Position Yes Yes -Correct Procedure Yes Yes -Procedure Performed Yes Yes -Type of Procedure Debridement Debridement -Clinical Debridement Subcutaneous Subcutaneous -Post Debridement Size (cm) - Length 3.5 5.0 -Post Debridement Size (cm) - Width 0.8 0.9 -Post Debridement Size (cm) - Depth 0.1 0.1 -Total Square Cm 2.80 4.50 -Wound/Ulcer Outcome Not Healed Not Healed -Ulcer Cleansing Rinsed/ Rinsed/ Irrigated with Irrigated with Saline Saline -Foul Odor after Cleansing No No -Bioengineered Tissue No No -Bleeding Controlled with Pressure Pressure -Treatment Response Procedure Procedure Tolerated Well Tolerated Well Pain Scale: 0-10 Numeric Is Patient Pain Free? 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 Plan: New open area which was said to have happened at home during wound dressing change. Debridement as documented above. Procedure was well tolerated. Continue Aquacel extra over open areas. Advised to moisten both on application and also appropriately moisten before taking off. Xerofoam over all wound area ( Both open and epithelized ). Continue protein rich diet and supplements. Follow-up in 1 week. This note was generated with Open [employer]ation software. It may contain incorrect words, spelling, and punctuation that were not noted in checking the note before signing.
[2017-04-22 08:45] VITALS: RESP 18; BMI 28.7
--- NOTE | 2017-04-22 09:41 | PCM.WC.PN ---
(1) Chronic ulcer of back Status: Chronic Current Visit: Yes Code(s): L98.429 - Non-pressure chronic ulcer of back with unspecified severity (2) Essential (primary) hypertension Status: Chronic Current Visit: No Code(s): I10 - Essential (primary) hypertension (3) Hypothyroidism Status: Chronic Current Visit: No Code(s): E03.9 - Hypothyroidism, unspecified Type of Wound Date of Service: 04/22/17 Chief Complaint: Upper Back Ulcer. History of Wound: Ms Ty is a pleasant 82-year-old with past medical history of CKD, hypothyroidism and hypertension amongst others who presented here due to nonhealing upper back wound. Wound was said to have been noted by family in January. Patient believes that she had a rash that she kept picking at and which subsequently worsened to its current state. She denies any known discharge from the site. She feels well otherwise and denies chills, fever, nausea, vomiting, change in her bowel habits or otherwise feeling of unwell. She has had no management of this wound. She denies any history of diabetes. She had lived alone until now but currently lives with her son and [id number]. Progress of Wound: Improving. - Physical Exam Vital Signs Temp Pulse Resp BP 95.3 F L 63 18 142/94 H 04/15/17 09:20 04/15/17 09:20 04/22/17 08:45 04/15/17 09:20 General: Alert, Oriented x3, Cooperative, No apparent distress HEENT: Atraumatic, Normocephalic Oral: Moist Mucosa Neck: Supple Lungs: Normal air movement Cardiovascular: Regular rate Extremities: No cyanosis Skin: Ulcer/ Wound Wound Measurements and Assessment WC - Nurse 1 - General Ulcer Measurement Start: 04/08/17 08:30 Freq: Status: Active Protocol: Activity Type Activity Date Activity User E-Sign Co-Sign Detail Recorded Client Recorded Date Recorded By Document 04/22/17 08:45 DV [id number] 04/22/17 09:02 DV 04/22/17 08:45 Wound Center Nurse 1 [Ulcer Assessment] #1 Upper Back - Midline -Combined with other wound No -Current Size (cm) - Length 0.2 -Current Size (cm) - Width 0.6 -Current Size (cm) - Depth 0.1 -Total Square Cm 0.12 -Date of Last Picture (Recall this 04/22/17 field) -Photo Taken Yes -Epithelialization Medium 34-66% -Tunneling No -Undermining/Tunneling No -Circular Undermining No -Classification - Thickness Full Thickness without Exposed Support Structure -Exudate Amt Small (1-33%) -Exudate Type Serosanguineous -Wound Margin Flat & Intact -Granulation Amt Small (1-33%) -Granulation Quality Pale [place] -Slough/Fibrin Yes -Necrosis Amt Small (1-33%) -Necrotic Tissue Type Adherent Slough -Structure Exposed None/Limited to Skin Breakdown -Texture (Raquel-wound Skin Appearance) Not Assessed Scarring -Moisture (Raquel-wound Skin Appearance Assessed ) Weeping -Color (Raquel-wound Skin Appearance) No Abnormality Assessed -Temperature (Raquel-wound Skin No Abnormality Appearance) (Pt Warm) -Tenderness on Palpation (Raquel-wound No Skin Appearance) -Ulcer Cleansing Rinsed/ Irrigated with Saline -Foul Odor after Cleansing No -Anesthetic Used 4% Lidocaine Solution WC - Nurse 2 - General Ulcer CM Notes Start: 04/08/17 08:30 Freq: Status: Active Protocol: Activity Type Activity Date Activity User E-Sign Co-Sign Detail Recorded Client Recorded Date Recorded By Document 04/22/17 08:45 DV [id number] 04/22/17 09:02 DV 04/22/17 08:45 Wound Center Nurse 2 [Procedure/Treatment] -Time 08:54 -Correct Patient Yes -Correct Side, Site, Position Yes -Correct Procedure Yes -Procedure Performed Yes -Type of Procedure Debridement -Clinical Debridement Subcutaneous -Post Debridement Size (cm) - Length 0.4 -Post Debridement Size (cm) - Width 0.6 -Post Debridement Size (cm) - Depth 0.1 -Total Square Cm 0.24 -Wound/Ulcer Outcome Not Healed -Ulcer Cleansing Rinsed/ Irrigated with Saline -Foul Odor after Cleansing No -Bioengineered Tissue No -Bleeding Controlled with Pressure -Treatment Response Procedure Tolerated Well Musculoskeletal: No Muscle Wasting Neurological: Cranial nerves II-XII grossly intact Psych/Mental Status: Normal Affect Debridement Note Post-Debridement Measurements/Treatment WC - Nurse 2 - General Ulcer CM Notes Start: 04/08/17 08:30 Freq: Status: Active Protocol: Activity Type Activity Date Activity User E-Sign Co-Sign Detail Recorded Client Recorded Date Recorded By Document 04/08/17 09:00 DV [id number] 04/08/17 09:02 DV Document 04/15/17 10:02 DV [id number] 04/15/17 10:07 DV Document 04/22/17 08:45 DV [id number] 04/22/17 09:02 DV 04/08/17 04/15/17 04/22/17 09:00 10:02 08:45 Wound Center Nurse 2 #1 Upper Back - Midline -Time 09:00 10:04 08:54 -Correct Patient Yes Yes Yes -Correct Side, Site, Position Yes Yes Yes -Correct Procedure Yes Yes Yes -Procedure Performed Yes Yes Yes -Type of Procedure Debridement Debridement Debridement -Clinical Debridement Subcutaneous Subcutaneous Subcutaneous -Post Debridement Size (cm) - Length 3.5 5.0 0.4 -Post Debridement Size (cm) - Width 0.8 0.9 0.6 -Post Debridement Size (cm) - Depth 0.1 0.1 0.1 -Total Square Cm 2.80 4.50 0.24 -Wound/Ulcer Outcome Not Healed Not Healed Not Healed -Ulcer Cleansing Rinsed/ Rinsed/ Rinsed/ Irrigated with Irrigated with Irrigated with Saline Saline Saline -Foul Odor after Cleansing No No No -Bioengineered Tissue No No No -Bleeding Controlled with Pressure Pressure Pressure -Treatment Response Procedure Procedure Procedure Tolerated Well Tolerated Well Tolerated Well Pain Scale: 0-10 Numeric Is Patient Pain Free? Yes Yes Wound debrided: Upper Back Wound Grade/Stage: Stage I Type of Debridement: Excisional debridement Anesthesia Used: 4% Lidocaine Solution Depth: Down to and including healthy tissue Percentage of wound debrided: 100 Instrument Used: 3mm curette Tissue Removed: Biofilm and devitalized tissue. 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 Plan: Improving. Debridement done as documented above. Procedure was well tolerated. Continue Aquacel extra over open areas. Continue to moisten both on application and also appropriately moisten before taking off. Adaptic over all wound area ( Both open and epithelized ). Continue protein rich diet and supplements. Follow-up in 1 week. This note was generated with [employer] software. It may contain incorrect words, spelling, and punctuation that were not noted in checking the note before signing.
--- NOTE | 2017-04-22 09:45 | PN.PCM_ITS ---
(1) Chronic ulcer of back Status: Chronic Current Visit: Yes Code(s): L98.429 - Non-pressure chronic ulcer of back with unspecified severity (2) Essential (primary) hypertension Status: Chronic Current Visit: No Code(s): I10 - Essential (primary) hypertension (3) Hypothyroidism Status: Chronic Current Visit: No Code(s): E03.9 - Hypothyroidism, unspecified Type of Wound Date of Service: 04/22/17 Chief Complaint: Upper Back Ulcer. History of Wound: Ms Ty is a pleasant 82-year-old with past medical history of CKD, hypothyroidism and hypertension amongst others who presented here due to nonhealing upper back wound. Wound was said to have been noted by family in January. Patient believes that she had a rash that she kept picking at and which subsequently worsened to its current state. She denies any known discharge from the site. She feels well otherwise and denies chills, fever, nausea, vomiting, change in her bowel habits or otherwise feeling of unwell. She has had no management of this wound. She denies any history of diabetes. She had lived alone until now but currently lives with her son and daughter-in- law. Progress of Wound: Improving. - Physical Exam Vital Signs Temp Pulse Resp BP 95.3 F L 63 18 142/94 H 04/15/17 09:20 04/15/17 09:20 04/22/17 08:45 04/15/17 09:20 General: Alert, Oriented x3, Cooperative, No apparent distress HEENT: Atraumatic, Normocephalic Oral: Moist Mucosa Neck: Supple Lungs: Normal air movement Cardiovascular: Regular rate Extremities: No cyanosis Skin: Ulcer/ Wound Wound Measurements and Assessment WC - Nurse 1 - General Ulcer Measurement Start: 04/08/17 08:30 Freq: Status: Active Protocol: Activity Type Activity Date Activity User E-Sign Co-Sign Detail Recorded Client Recorded Date Recorded By Document 04/22/17 08:45 DV [id number] 04/22/17 09:02 DV 04/22/17 08:45 Wound Center Nurse 1 [Ulcer Assessment] #1 Upper Back - Midline -Combined with other wound No -Current Size (cm) - Length 0.2 -Current Size (cm) - Width 0.6 -Current Size (cm) - Depth 0.1 -Total Square Cm 0.12 -Date of Last Picture (Recall this 04/22/17 field) -Photo Taken Yes -Epithelialization Medium 34-66% -Tunneling No -Undermining/Tunneling No -Circular Undermining No -Classification - Thickness Full Thickness without Exposed Support Structure -Exudate Amt Small (1-33%) -Exudate Type Serosanguineous -Wound Margin Flat & Intact -Granulation Amt Small (1-33%) -Granulation Quality Pale [place] -Slough/Fibrin Yes -Necrosis Amt Small (1-33%) -Necrotic Tissue Type Adherent Slough -Structure Exposed None/Limited to Skin Breakdown -Texture (Raquel-wound Skin Appearance) Not Assessed Scarring -Moisture (Raquel-wound Skin Appearance Assessed ) Weeping -Color (Raquel-wound Skin Appearance) No Abnormality Assessed -Temperature (Raquel-wound Skin No Abnormality Appearance) (Pt Warm) -Tenderness on Palpation (Raquel-wound No Skin Appearance) -Ulcer Cleansing Rinsed/ Irrigated with Saline -Foul Odor after Cleansing No -Anesthetic Used 4% Lidocaine Solution WC - Nurse 2 - General Ulcer CM Notes Start: 04/08/17 08:30 Freq: Status: Active Protocol: Activity Type Activity Date Activity User E-Sign Co-Sign Detail Recorded Client Recorded Date Recorded By Document 04/22/17 08:45 DV [id number] 04/22/17 09:02 DV 04/22/17 08:45 Wound Center Nurse 2 [Procedure/Treatment] -Time 08:54 -Correct Patient Yes -Correct Side, Site, Position Yes -Correct Procedure Yes -Procedure Performed Yes -Type of Procedure Debridement -Clinical Debridement Subcutaneous -Post Debridement Size (cm) - Length 0.4 -Post Debridement Size (cm) - Width 0.6 -Post Debridement Size (cm) - Depth 0.1 -Total Square Cm 0.24 -Wound/Ulcer Outcome Not Healed -Ulcer Cleansing Rinsed/ Irrigated with Saline -Foul Odor after Cleansing No -Bioengineered Tissue No -Bleeding Controlled with Pressure -Treatment Response Procedure Tolerated Well Musculoskeletal: No Muscle Wasting Neurological: Cranial nerves II-XII grossly intact Psych/Mental Status: Normal Affect Debridement Note Post-Debridement Measurements/Treatment WC - Nurse 2 - General Ulcer CM Notes Start: 04/08/17 08:30 Freq: Status: Active Protocol: Activity Type Activity Date Activity User E-Sign Co-Sign Detail Recorded Client Recorded Date Recorded By Document 04/08/17 09:00 DV [id number] 04/08/17 09:02 DV Document 04/15/17 10:02 DV [id number] 04/15/17 10:07 DV Document 04/22/17 08:45 DV [id number] 04/22/17 09:02 DV 04/08/17 04/15/17 04/22/17 09:00 10:02 08:45 Wound Center Nurse 2 #1 Upper Back - Midline -Time 09:00 10:04 08:54 -Correct Patient Yes Yes Yes -Correct Side, Site, Position Yes Yes Yes -Correct Procedure Yes Yes Yes -Procedure Performed Yes Yes Yes -Type of Procedure Debridement Debridement Debridement -Clinical Debridement Subcutaneous Subcutaneous Subcutaneous -Post Debridement Size (cm) - Length 3.5 5.0 0.4 -Post Debridement Size (cm) - Width 0.8 0.9 0.6 -Post Debridement Size (cm) - Depth 0.1 0.1 0.1 -Total Square Cm 2.80 4.50 0.24 -Wound/Ulcer Outcome Not Healed Not Healed Not Healed -Ulcer Cleansing Rinsed/ Rinsed/ Rinsed/ Irrigated with Irrigated with Irrigated with Saline Saline Saline -Foul Odor after Cleansing No No No -Bioengineered Tissue No No No -Bleeding Controlled with Pressure Pressure Pressure -Treatment Response Procedure Procedure Procedure Tolerated Well Tolerated Well Tolerated Well Pain Scale: 0-10 Numeric Is Patient Pain Free? Yes Yes Wound debrided: Upper Back Wound Grade/Stage: Stage I Type of Debridement: Excisional debridement Anesthesia Used: 4% Lidocaine Solution Depth: Down to and including healthy tissue Percentage of wound debrided: 100 Instrument Used: 3mm curette Tissue Removed: Biofilm and devitalized tissue. 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 Plan: Improving. Debridement done as documented above. Procedure was well tolerated. Continue Aquacel extra over open areas. Continue to moisten both on application and also appropriately moisten before taking off. Adaptic over all wound area ( Both open and epithelized ). Continue protein rich diet and supplements. Follow-up in 1 week. This note was generated with [employer] software. It may contain incorrect words, spelling, and punctuation that were not noted in checking the note before signing.
== END 2017-05-08 23:59 ==
LOC: WC 08:30
PROVIDERS: Family Provider Family Medicine; PCP Family Medicine; Visit Provider Internal Medicine
DX: L98.422 Non-pressure chronic ulcer of back with fat layer exposed (principal); E03.9 Hypothyroidism, unspecified; I12.9 Hypertensive chronic kidney disease with stage 1 through stage 4 chronic kidney disease, or unspecified chronic kidney disease; N18.9 Chronic kidney disease, unspecified; L98.421 Non-pressure chronic ulcer of back limited to breakdown of skin
CPT/HCPCS: 11042

== ENCOUNTER 2017-05-26 19:00 | Emergency (ER) | payer MEDICARE, OTHER, SELFPAY ==
[2017-05-26] VITALS (7 sets, daily range): BP systolic 70–111; BP diastolic 51–71; PULSE 54–73; RESP 13–20; TEMP 36.6; O2SAT 88–100; BMI 27.3
--- NOTE | 2017-05-26 19:50 | CT_ITS ---
CT Head or Brain W/O Contrast INDICATION: FALL. INJURY COMPARISON: None TECHNIQUE: Noncontrast axial CT examination of the brain. Radiation dose optimization applied. FINDINGS: The ventricular system is normal in size and symmetric. The cortical sulci, sylvian fissures, and basal cisterns are well seen. The silverio-white matter junction is distinct. Periventricular chronic ischemic microvascular white matter changes are noted. There is no evidence of acute intracranial hemorrhage, mass effect, midline shift, or abnormal extra-axial collection. The calvarium is intact. There is chronic appearing opacification of the right lateral aspect of the sphenoid sinus. Mild mucosal thickening is noted in the ethmoid sinuses. Frontal sinus and maxillary sinuses are clear. Mastoid air cells and middle ear cavities are clear. CT/Brain/Head without Contrast IMPRESSION: No evidence of acute intracranial abnormality by noncontrast CT. Sphenoid and ethmoid sinus disease. at 2112 Reported and signed by: Lacie Kramer MD Electronically Signed: Lacie Kramer MD at 21:10 EDT Tel , Service support ,
--- NOTE | 2017-05-26 19:51 | EKG12_ITS ---
Test Reason : NEURO S/SX Blood Pressure : / mmHG Vent. Rate : 053 BPM Atrial Rate : 053 BPM P-R Int : 178 ms QRS Dur : 090 ms QT Int : 406 ms P-R-T Axes : 041 044 043 degrees QTc Int : 380 ms Sinus bradycardia Septal infarct , age undetermined Abnormal ECG Confirmed by OCTAVIA RIVAS, KALA ([id number]), story editor FLYNN PATRICIO ([id number]) on 06/01/2017 3:13:37 PM Referred By: LIAM Confirmed By:KALA DUDLEY MD
--- NOTE | 2017-05-26 19:55 | RAD_ITS ---
STUDY: X-RAY CHEST REASON FOR EXAM: Female, 82 years old. Altered mental status TECHNIQUE: Frontal view of the chest COMPARISON: 03/02/2017. FINDINGS: There are stable emphysematous changes noted in the lungs. The lungs are clear. There are no pleural effusions. There is no pneumothorax. The heart is normal in size. The visualized osseous structures are within normal limits. RAD/Chest 1 View (Portable) IMPRESSION: No acute thoracic pathology. Electronically Signed: Jones [place], at 21:04 EDT Tel , Service support ,
--- NOTE | 2017-05-26 19:58 | ED.DCSUM_ITS ---
- ER Visit Summary Date of Service: 05/26/17 Chief Complaint: Low blood pressure History of Present Illness: The patient is a 82 F 3 of CAD, renal insufficiency , hypertension and cardiac stents. Per the [id number] the patient was hard to arouse today at 6 PM. She has been sleeping most of the day. They were concerned because in January she had a similar event with a urinary tract infection and they brought her in to be evaluated. They also state the patient is slightly confused and took a whole blood pressure pill when she is only supposed to take half. Physical Examination: Older female initial vital signs blood pressure 92/58. Afebrile pulse ox 95% on room air. H EENT exam unremarkable. Moist mucous membranes. Neck nontender no lymphadenopathy. Lungs clear to auscultation bilaterally. Heart regular rhythm no murmur. Chest wall nontender. Abdomen soft nontender. Normal bowel sounds no peritoneal signs. She is moving all 4 extremities. Neurovascular intact. 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 Dorsi plantar flexion. Neurologically currently she seems pretty lucid. She is awake and alert. Answering questions. She knows day of the week, month and year. She has a president 9 states. There is no slurred speech. No motor deficits. Test Results: CBC white count 7 H&H 10 and 31 which is her baseline anemia. Electro lites unremarkable. Creatinine 2.1 again she is baseline renal insufficiency. UA negative. Troponin less than 0.02. Lactic acid normal 1 EKG sinus bradycardia rate of [address] of her brain showed no acute abnormality read by the radiologist reviewed by me. Chest x-ray no acute abnormality. Emergency Department Course and Treatment: Will be evaluated for acute hypotension. She also has had some recent falls and head injury will obtain a CAT scan plus labs. Treatment Plan: Repeat exam patient is doing well at 2243. She will be discharged to home. She and family feel comfortable with the plan. Her current blood pressure 111/68. Clinically she is doing well. Disposition: Admission Impression: Acute hypotension of uncertain etiology resolved. Mental status change resolved This note was generated with [employer] dictation software. It may contain incorrect words, spelling, and punctuation that were not noted in review of the chart prior to signing ED Disposition - Plan for ED Patient: Chief Complaint: Alt LOC Referrals: Javed Carbajal DO [Primary Care Provider] -
[2017-05-26 20:08] LABS: Absolute Lymphocyte Count 1.49 X10^3/ul (0.83-4.51); Absolute Neutrophil Count 4.8 X10^3/uL (2.0-7.7); Basophil# 0.01 X10^3/uL; Basophil% 0.1 % (0-1); Eosinophil# 0.29 X10^3/uL; Hematocrit 31.6 % (37-47); Hemoglobin 10.3 g/dl (12.0-15.0); Lymphocyte # 1.49 X10^3/ul (4.0); Lymphocyte % 20.7 % (19-41); Mean Corp Hgb Conc 32.6 g/gl (32-36); Mean Corpuscular Hgb 30.4 pg (27.0-32.0); Mean Corpuscular Volume 93.2 fL (81-99); Mean Platelet Vol. 10.1 fl (6.2-12.0); Monocyte# 0.57 X10^3/uL; Monocyte% 7.9 % (0-10); Neutrophil # 4.84 X10^3/uL (2.7-7.7); Neutrophil % 67.2 % (47-70); Platelet Count 109 K/mm3 (150-450); RBC Distribution Width CV 15.3 % (11.6-14.6); RBC Distribution Width SD 49.5 fl (35.1-43.9); Red Blood Count 3.39 M/mm3 (4.2-5.4); White Blood Count 7.2 K/mm3 (4.4-11.0)
[2017-05-26 20:10] LABS: POSITIVE COUNT NO; POSITIVE DIFFERENTIAL NO; POSITIVE MORPHOLOGY NO
[2017-05-26] MEDS: 0.9% Normal Saline 1,000 ML 1000 ML IV (20:20)
[2017-05-26 20:21] LABS: Anion Gap 7 (5-15); BUN 24 mg/dL (7-18); BUN/Creat Ratio 11.4 RATIO (10-20); Calcium,Total 8.9 mg/dL (8.5-10.1); Chloride 100 mmol/L (98-107); EST Glomerular Filtration Rate 24 mL/min (>60); Est Glom Filt Rate - Afr Amer 29 mL/min (>60); Estimated Creatinine Clearance 18.35 ml/min; Glucose 106 mg/dL (74-106); Potassium 4.2 mmol/L (3.5-5.1); Sodium Level 138 mmol/L (136-145)
[2017-05-26 21:21] LABS: Bacteria 0 SEEN /hpf (None Seen); Mucous, Urine 0 SEEN /hpf (<or=2+); Red Blood Cells-Urine 0 SEEN /hpf (0-5); Squamous Epithelial Cells - UA 0 SEEN /hpf (5-10); White Blood Cells 0 SEEN /hpf (0-5)
[2017-05-26 21:22] LABS: Color, Urine Yellow (Yellow); Glucose, Dipstick Normal (Normal); Ketone-Dipstick Negative (Negative); Leukocyte Esterase-Dipstick Negative /ul (Negative); Nitrite-Dipstick Negative (Negative); Occult Blood-Urine Negative /ul (Negative); Protein-Dipstick Negative (Negative); Urine Bilirubin Dipstick Negative (Negative); Urine Clarity Sl. Cloudy (Clear); Urine Urobilinogen Normal (Normal); Urine pH 6.5 (5.0 - 8.0)
[2017-05-26 21:28] LABS: Amorphous Sediment 1+
--- NOTE | 2017-05-26 22:44 | ED.DEP ---
ED Disposition - Plan for ED Patient: Disposition: Home or Assisted Living Chief Complaint: Alt LOC Instructions: ED Hypotension All Causes Referrals: Javed Carbajal, [Primary Care Provider] - As soon as possible Additional Instructions: Fluids and rest. Take your blood pressure medications as prescribed. Hold your blood pressure medication if your blood pressure is less than 110 systolic. Return if feeling worse otherwise follow-up your primary care physician. All your blood work and labs tonight were basically unremarkable.
== END 2017-05-26 23:00 | disposition home or self-care (01) ==
PROVIDERS: Emergency Provider Emergency Medicine; Family Provider Family Medicine; PCP Family Medicine
DX: I95.9 Hypotension, unspecified (principal); R41.82 Altered mental status, unspecified; I12.9 Hypertensive chronic kidney disease with stage 1 through stage 4 chronic kidney disease, or unspecified chronic kidney disease; N18.9 Chronic kidney disease, unspecified; D63.1 Anemia in chronic kidney disease; R19.7 Diarrhea, unspecified; I25.10 Atherosclerotic heart disease of native coronary artery without angina pectoris; I10 Essential (primary) hypertension; Z87.440 Personal history of urinary (tract) infections; Z95.5 Presence of coronary angioplasty implant and graft; Z79.82 Long term (current) use of aspirin; Z79.899 Other long term (current) drug therapy
CPT/HCPCS: 70450; 71045; 80048; 81001; 83605; 84484; 85025; 93005; 96360; 96361; 99285; P9612; A4216

== ENCOUNTER 2017-06-03 08:00 | Outpatient (RCR) | payer MEDICARE, OTHER, SELFPAY ==
[2017-05-09 00:46] VITALS: BP 146/77; PULSE 63; RESP 18; TEMP 35.2; BMI 28.7
[2017-05-13 10:34] VITALS: BP 151/72; PULSE 57; RESP 18; TEMP 36.1; BMI 28.7
--- NOTE | 2017-05-13 19:00 | PCM.WC.PN ---
(1) Chronic ulcer of back Status: Chronic Current Visit: Yes Code(s): L98.429 - Non-pressure chronic ulcer of back with unspecified severity (2) Essential (primary) hypertension Status: Chronic Current Visit: Yes Code(s): I10 - Essential (primary) hypertension (3) Hypothyroidism Status: Chronic Current Visit: No Code(s): E03.9 - Hypothyroidism, unspecified Type of Wound Date of Service: 05/13/17 Chief Complaint: Upper Back Ulcer. History of Wound: Ms Ty is a pleasant 82-year-old with past medical history of CKD, hypothyroidism and hypertension amongst others who presented here due to nonhealing upper back wound. Wound was said to have been noted by family in January. Patient believes that she had a rash that she kept picking at and which subsequently worsened to its current state. She denies any known discharge from the site. She feels well otherwise and denies chills, fever, nausea, vomiting, change in her bowel habits or otherwise feeling of unwell. She has had no management of this wound. She denies any history of diabetes. She had lived alone until now but currently lives with her son and [id number]. Progress of Wound: has not been here in about 2-3 weeks and now presents with significant worsening of her ulcer after almost total healing. She denies any known cause however family members note that she scratches a lot. She denies chills, fever or otherwise feeling of unwell. - Physical Exam Vital Signs Temp Pulse Resp BP 97 F L 57 L 18 151/72 H 05/13/17 10:34 05/13/17 10:34 05/13/17 10:34 05/13/17 10:34 General: Alert, Oriented x3, Cooperative HEENT: Atraumatic, Normocephalic Oral: Moist Mucosa Neck: Supple Lungs: Normal air movement Cardiovascular: Regular rate Skin: Ulcer/ Wound Wound Measurements and Assessment WC - Nurse 1 - General Ulcer Measurement Start: 05/13/17 09:49 Freq: Status: Active Protocol: Activity Type Activity Date Activity User E-Sign Co-Sign Detail Recorded Client Recorded Date Recorded By Document 05/13/17 10:34 RB [id number] 05/13/17 10:36 RB 05/13/17 10:34 Wound Center Nurse 1 [Ulcer Assessment] #1 Upper Back - Midline -Combined with other wound No -Current Size (cm) - Length 1.7 -Current Size (cm) - Width 4.4 -Current Size (cm) - Depth 0.1 -Total Square Cm 7.48 -Photo Taken No -Epithelialization Small 1-33% -Tunneling No -Undermining/Tunneling No -Circular Undermining No -Exudate Amt None Present (0 %) -Wound Margin Distinct, Outline Attached -Granulation Amt Medium (34-66%) -Granulation Quality Red -Slough/Fibrin Yes -Necrosis Amt Medium (34-66%) -Necrotic Tissue Type Adherent Slough -Structure Exposed None/Limited to Skin Breakdown -Texture (Raquel-wound Skin Appearance) Scarring -Moisture (Raquel-wound Skin Appearance Dry/Scaly ) -Color (Raquel-wound Skin Appearance) Erythema -Temperature (Raquel-wound Skin No Abnormality Appearance) (Pt Warm) -Tenderness on Palpation (Raquel-wound No Skin Appearance) -Ulcer Cleansing Rinsed/ Irrigated with Saline -Foul Odor after Cleansing No -Anesthetic Used 4% Lidocaine Solution WC - Nurse 2 - General Ulcer CM Notes Start: 05/13/17 09:49 Freq: Status: Active Protocol: Activity Type Activity Date Activity User E-Sign Co-Sign Detail Recorded Client Recorded Date Recorded By Document 05/13/17 11:09 DV [id number] 05/13/17 11:14 DV 05/13/17 11:09 Wound Center Nurse 2 [Procedure/Treatment] -Time 11:09 -Correct Patient Yes -Correct Side, Site, Position Yes -Correct Procedure Yes -Procedure Performed Yes -Type of Procedure Debridement -Clinical Debridement Subcutaneous -Post Debridement Size (cm) - Length 1.7 -Post Debridement Size (cm) - Width 5.0 -Post Debridement Size (cm) - Depth 0.1 -Total Square Cm 8.50 -Wound/Ulcer Outcome Not Healed -Ulcer Cleansing Rinsed/ Irrigated with Saline -Foul Odor after Cleansing No -Bioengineered Tissue No -Bleeding Controlled with Pressure -Treatment Response Procedure Tolerated Well [See Physician Procedure note for Specifics] Pain Scale: 0-10 Numeric [Pain] -Is Patient Pain Free? Yes Musculoskeletal: No Muscle Wasting Neurological: Cranial nerves II-XII grossly intact Psych/Mental Status: Normal Affect Debridement Note Post-Debridement Measurements/Treatment WC - Nurse 2 - General Ulcer CM Notes Start: 05/13/17 09:49 Freq: Status: Active Protocol: Activity Type Activity Date Activity User E-Sign Co-Sign Detail Recorded Client Recorded Date Recorded By Document 05/13/17 11:09 DV [id number] 05/13/17 11:14 DV 05/13/17 11:09 Wound Center Nurse 2 #1 Upper Back - Midline -Time 11:09 -Correct Patient Yes -Correct Side, Site, Position Yes -Correct Procedure Yes -Procedure Performed Yes -Type of Procedure Debridement -Clinical Debridement Subcutaneous -Post Debridement Size (cm) - Length 1.7 -Post Debridement Size (cm) - Width 5.0 -Post Debridement Size (cm) - Depth 0.1 -Total Square Cm 8.50 -Wound/Ulcer Outcome Not Healed -Ulcer Cleansing Rinsed/ Irrigated with Saline -Foul Odor after Cleansing No -Bioengineered Tissue No -Bleeding Controlled with Pressure -Treatment Response Procedure Tolerated Well Pain Scale: 0-10 Numeric Is Patient Pain Free? Yes Wound debrided: Upper Back/Posterior Neck Wound Grade/Stage: Stage II Type of Debridement: Excisional debridement Anesthesia Used: 4% Lidocaine Solution Depth: Down to and including healthy tissue, in the subcutaneous layer Percentage of wound debrided: 100 Instrument Used: 5mm curette Tissue Removed: Slough, Fibrin and Devitalized Tissue Severity: Fat Layer Exposed Amount of bleeding with debridement: Mild Bleeding Controlled with: Pressure Patient tolerated procedure well Assessment/Plan Active Problems Chronic ulcer of back (Chronic) Essential (primary) hypertension (Chronic) Assessment: 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 Plan: Significant worsening of her wound with almost complete reversal to initial presentation. She had only minimal area left at her last visit over 2 weeks ago. She is here with her [id number] and they are unsure of how/ if she has had any dressing since the last visit. Debridement done as documented above. Procedure was well tolerated. Will switch dressing over to Fibrocol moistened with Adaptic covering. Change daily. Continue protein rich diet and supplements. Advised against scratching. May benefit from covering area always to prevent involuntary scratching. Follow-up in 2 weeks. This note was generated with [employer] software. It may contain incorrect words, spelling, and punctuation that were not noted in checking the note before signing.
--- NOTE | 2017-05-13 19:05 | PN.PCM_ITS ---
(1) Chronic ulcer of back Status: Chronic Current Visit: Yes Code(s): L98.429 - Non-pressure chronic ulcer of back with unspecified severity (2) Essential (primary) hypertension Status: Chronic Current Visit: Yes Code(s): I10 - Essential (primary) hypertension (3) Hypothyroidism Status: Chronic Current Visit: No Code(s): E03.9 - Hypothyroidism, unspecified Type of Wound Date of Service: 05/13/17 Chief Complaint: Upper Back Ulcer. History of Wound: Ms Ty is a pleasant 82-year-old with past medical history of CKD, hypothyroidism and hypertension amongst others who presented here due to nonhealing upper back wound. Wound was said to have been noted by family in January. Patient believes that she had a rash that she kept picking at and which subsequently worsened to its current state. She denies any known discharge from the site. She feels well otherwise and denies chills, fever, nausea, vomiting, change in her bowel habits or otherwise feeling of unwell. She has had no management of this wound. She denies any history of diabetes. She had lived alone until now but currently lives with her son and daughter-in- law. Progress of Wound: has not been here in about 2-3 weeks and now presents with significant worsening of her ulcer after almost total healing. She denies any known cause however family members note that she scratches a lot. She denies chills, fever or otherwise feeling of unwell. - Physical Exam Vital Signs Temp Pulse Resp BP 97 F L 57 L 18 151/72 H 05/13/17 10:34 05/13/17 10:34 05/13/17 10:34 05/13/17 10:34 General: Alert, Oriented x3, Cooperative HEENT: Atraumatic, Normocephalic Oral: Moist Mucosa Neck: Supple Lungs: Normal air movement Cardiovascular: Regular rate Skin: Ulcer/ Wound Wound Measurements and Assessment WC - Nurse 1 - General Ulcer Measurement Start: 05/13/17 09:49 Freq: Status: Active Protocol: Activity Type Activity Date Activity User E-Sign Co-Sign Detail Recorded Client Recorded Date Recorded By Document 05/13/17 10:34 RB [id number] 05/13/17 10:36 RB 05/13/17 10:34 Wound Center Nurse 1 [Ulcer Assessment] #1 Upper Back - Midline -Combined with other wound No -Current Size (cm) - Length 1.7 -Current Size (cm) - Width 4.4 -Current Size (cm) - Depth 0.1 -Total Square Cm 7.48 -Photo Taken No -Epithelialization Small 1-33% -Tunneling No -Undermining/Tunneling No -Circular Undermining No -Exudate Amt None Present (0 %) -Wound Margin Distinct, Outline Attached -Granulation Amt Medium (34-66%) -Granulation Quality Red -Slough/Fibrin Yes -Necrosis Amt Medium (34-66%) -Necrotic Tissue Type Adherent Slough -Structure Exposed None/Limited to Skin Breakdown -Texture (Raquel-wound Skin Appearance) Scarring -Moisture (Raquel-wound Skin Appearance Dry/Scaly ) -Color (Raquel-wound Skin Appearance) Erythema -Temperature (Raquel-wound Skin No Abnormality Appearance) (Pt Warm) -Tenderness on Palpation (Raquel-wound No Skin Appearance) -Ulcer Cleansing Rinsed/ Irrigated with Saline -Foul Odor after Cleansing No -Anesthetic Used 4% Lidocaine Solution WC - Nurse 2 - General Ulcer CM Notes Start: 05/13/17 09:49 Freq: Status: Active Protocol: Activity Type Activity Date Activity User E-Sign Co-Sign Detail Recorded Client Recorded Date Recorded By Document 05/13/17 11:09 DV [id number] 05/13/17 11:14 DV 05/13/17 11:09 Wound Center Nurse 2 [Procedure/Treatment] -Time 11:09 -Correct Patient Yes -Correct Side, Site, Position Yes -Correct Procedure Yes -Procedure Performed Yes -Type of Procedure Debridement -Clinical Debridement Subcutaneous -Post Debridement Size (cm) - Length 1.7 -Post Debridement Size (cm) - Width 5.0 -Post Debridement Size (cm) - Depth 0.1 -Total Square Cm 8.50 -Wound/Ulcer Outcome Not Healed -Ulcer Cleansing Rinsed/ Irrigated with Saline -Foul Odor after Cleansing No -Bioengineered Tissue No -Bleeding Controlled with Pressure -Treatment Response Procedure Tolerated Well [See Physician Procedure note for Specifics] Pain Scale: 0-10 Numeric [Pain] -Is Patient Pain Free? Yes Musculoskeletal: No Muscle Wasting Neurological: Cranial nerves II-XII grossly intact Psych/Mental Status: Normal Affect Debridement Note Post-Debridement Measurements/Treatment WC - Nurse 2 - General Ulcer CM Notes Start: 05/13/17 09:49 Freq: Status: Active Protocol: Activity Type Activity Date Activity User E-Sign Co-Sign Detail Recorded Client Recorded Date Recorded By Document 05/13/17 11:09 DV [id number] 05/13/17 11:14 DV 05/13/17 11:09 Wound Center Nurse 2 #1 Upper Back - Midline -Time 11:09 -Correct Patient Yes -Correct Side, Site, Position Yes -Correct Procedure Yes -Procedure Performed Yes -Type of Procedure Debridement -Clinical Debridement Subcutaneous -Post Debridement Size (cm) - Length 1.7 -Post Debridement Size (cm) - Width 5.0 -Post Debridement Size (cm) - Depth 0.1 -Total Square Cm 8.50 -Wound/Ulcer Outcome Not Healed -Ulcer Cleansing Rinsed/ Irrigated with Saline -Foul Odor after Cleansing No -Bioengineered Tissue No -Bleeding Controlled with Pressure -Treatment Response Procedure Tolerated Well Pain Scale: 0-10 Numeric Is Patient Pain Free? Yes Wound debrided: Upper Back/Posterior Neck Wound Grade/Stage: Stage II Type of Debridement: Excisional debridement Anesthesia Used: 4% Lidocaine Solution Depth: Down to and including healthy tissue, in the subcutaneous layer Percentage of wound debrided: 100 Instrument Used: 5mm curette Tissue Removed: Slough, Fibrin and Devitalized Tissue Severity: Fat Layer Exposed Amount of bleeding with debridement: Mild Bleeding Controlled with: Pressure Patient tolerated procedure well Assessment/Plan Active Problems Chronic ulcer of back (Chronic) Essential (primary) hypertension (Chronic) Assessment: 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 Plan: Significant worsening of her wound with almost complete reversal to initial presentation. She had only minimal area left at her last visit over 2 weeks ago. She is here with her [id number] and they are unsure of how/ if she has had any dressing since the last visit. Debridement done as documented above. Procedure was well tolerated. Will switch dressing over to Fibrocol moistened with Adaptic covering. Change daily. Continue protein rich diet and supplements. Advised against scratching. May benefit from covering area always to prevent involuntary scratching. Follow-up in 2 weeks. This note was generated with [employer] software. It may contain incorrect words, spelling, and punctuation that were not noted in checking the note before signing.
[2017-05-27 10:34] VITALS: BP 150/57; PULSE 77; RESP 16; TEMP 35.7; BMI 28.7
--- NOTE | 2017-05-27 19:00 | PCM.WC.PN ---
(1) Chronic ulcer of back Status: Chronic Current Visit: Yes Code(s): L98.429 - Non-pressure chronic ulcer of back with unspecified severity (2) Essential (primary) hypertension Status: Chronic Current Visit: Yes Code(s): I10 - Essential (primary) hypertension (3) Hypothyroidism Status: Chronic Current Visit: No Code(s): E03.9 - Hypothyroidism, unspecified Type of Wound Date of Service: 05/27/17 Chief Complaint: Upper Back Ulcer. History of Wound: Ms Ty is a pleasant 82-year-old with past medical history of CKD, hypothyroidism and hypertension amongst others who presented here due to nonhealing upper back wound. Wound was said to have been noted by family in January. Patient believes that she had a rash that she kept picking at and which subsequently worsened to its current state. She denies any known discharge from the site. She feels well otherwise and denies chills, fever, nausea, vomiting, change in her bowel habits or otherwise feeling of unwell. She has had no management of this wound. She denies any history of diabetes. She had lived alone until now but currently lives with her son and [id number]. Progress of Wound: Improving. Her son who is her primary caregiver is here today with her and does state that prior to the last visit the wound healed and so he had stopped applying any dressing over the wound for weeks and is not sure why to reopen. - Physical Exam Vital Signs Temp Pulse Resp BP 96.2 F L 77 16 150/57 H 05/27/17 10:34 05/27/17 10:34 05/27/17 10:34 05/27/17 10:34 General: Alert, Oriented x3, Cooperative, No apparent distress HEENT: Atraumatic, Normocephalic Oral: Moist Mucosa Neck: Supple Lungs: Normal air movement Extremities: No cyanosis Skin: Ulcer/ Wound Wound Measurements and Assessment WC - Nurse 1 - General Ulcer Measurement Start: 05/13/17 09:49 Freq: Status: Active Protocol: Activity Type Activity Date Activity User E-Sign Co-Sign Detail Recorded Client Recorded Date Recorded By Document 05/27/17 10:34 [facility] [id number] 05/27/17 10:42 [facility] 05/27/17 10:34 Wound Center Nurse 1 [Ulcer Assessment] #1 Upper Back - Midline -Combined with other wound No -Current Size (cm) - Length 0.6 -Current Size (cm) - Width 1.9 -Current Size (cm) - Depth 0.1 -Total Square Cm 1.14 -Photo Taken No -Epithelialization None Present -Tunneling No -Undermining/Tunneling No -Circular Undermining No -Exudate Amt Small (1-33%) -Exudate Type Serosanguineous -Wound Margin Distinct, Outline Attached -Granulation Amt None Present (0 %) -Slough/Fibrin Yes -Necrosis Amt Large (67-100%) -Necrotic Tissue Type Eschar -Structure Exposed N/A -Texture (Raquel-wound Skin Appearance) Scarring -Moisture (Raquel-wound Skin Appearance Dry/Scaly ) -Color (Raquel-wound Skin Appearance) Erythema -Temperature (Raquel-wound Skin No Abnormality Appearance) (Pt Warm) -Tenderness on Palpation (Raquel-wound No Skin Appearance) -Ulcer Cleansing Rinsed/ Irrigated with Saline -Foul Odor after Cleansing No -Anesthetic Used 4% Lidocaine Solution WC - Nurse 2 - General Ulcer CM Notes Start: 05/13/17 09:49 Freq: Status: Active Protocol: Activity Type Activity Date Activity User E-Sign Co-Sign Detail Recorded Client Recorded Date Recorded By Document 05/27/17 11:14 DV [id number] 05/27/17 11:16 DV 05/27/17 11:14 Wound Center Nurse 2 [Procedure/Treatment] -Time 11:15 -Correct Patient Yes -Correct Side, Site, Position Yes -Correct Procedure Yes -Procedure Performed Yes -Type of Procedure Debridement -Clinical Debridement Subcutaneous -Post Debridement Size (cm) - Length 1.7 -Post Debridement Size (cm) - Width 5.0 -Post Debridement Size (cm) - Depth 0.1 -Total Square Cm 8.50 -Wound/Ulcer Outcome Not Healed -Ulcer Cleansing Rinsed/ Irrigated with Saline -Foul Odor after Cleansing No -Bioengineered Tissue No -Bleeding Controlled with Pressure -Treatment Response Procedure Tolerated Well [See Physician Procedure note for Specifics] Pain Scale: 0-10 Numeric [Pain] -Is Patient Pain Free? Yes Musculoskeletal: No Muscle Wasting Neurological: Cranial nerves II-XII grossly intact Psych/Mental Status: Normal Affect Debridement Note Post-Debridement Measurements/Treatment WC - Nurse 2 - General Ulcer CM Notes Start: 05/13/17 09:49 Freq: Status: Active Protocol: Activity Type Activity Date Activity User E-Sign Co-Sign Detail Recorded Client Recorded Date Recorded By Document 05/13/17 11:09 DV [id number] 05/13/17 11:14 DV Document 05/27/17 11:14 DV [id number] 05/27/17 11:16 DV 05/13/17 05/27/17 11:09 11:14 Wound Center Nurse 2 #1 Upper Back - Midline -Time 11:09 11:15 -Correct Patient Yes Yes -Correct Side, Site, Position Yes Yes -Correct Procedure Yes Yes -Procedure Performed Yes Yes -Type of Procedure Debridement Debridement -Clinical Debridement Subcutaneous Subcutaneous -Post Debridement Size (cm) - Length 1.7 1.7 -Post Debridement Size (cm) - Width 5.0 5.0 -Post Debridement Size (cm) - Depth 0.1 0.1 -Total Square Cm 8.50 8.50 -Wound/Ulcer Outcome Not Healed Not Healed -Ulcer Cleansing Rinsed/ Rinsed/ Irrigated with Irrigated with Saline Saline -Foul Odor after Cleansing No No -Bioengineered Tissue No No -Bleeding Controlled with Pressure Pressure -Treatment Response Procedure Procedure Tolerated Well Tolerated Well Pain Scale: 0-10 Numeric Is Patient Pain Free? Yes Yes Wound debrided: Upper Back/Posterior Neck Wound Grade/Stage: Stage II Type of Debridement: Excisional debridement Anesthesia Used: 4% Lidocaine Solution Depth: Down to and including healthy tissue, in the subcutaneous layer Percentage of wound debrided: 100 Instrument Used: 5mm curette Tissue Removed: Slough and Devitalized tissue Severity: Fat Layer Exposed Amount of bleeding with debridement: Mild Bleeding Controlled with: Pressure Patient tolerated procedure well Assessment/Plan Active Problems Chronic ulcer of back (Chronic) Essential (primary) hypertension (Chronic) Assessment: 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 Plan: Improvement noted over the past week. Still significant slough burden with some crusting. Debridement done as documented above. Procedure was well tolerated. Continue Fibrocol moistened with Adaptic covering. Change daily to twice daily. Continue protein rich diet and supplements. Advised against scratching. May benefit from covering area always to prevent involuntary scratching and reopening of wound. Follow-up in 1 week. This note was generated with [employer] software. It may contain incorrect words, spelling, and punctuation that were not noted in checking the note before signing.
--- NOTE | 2017-05-27 19:05 | PN.PCM_ITS ---
(1) Chronic ulcer of back Status: Chronic Current Visit: Yes Code(s): L98.429 - Non-pressure chronic ulcer of back with unspecified severity (2) Essential (primary) hypertension Status: Chronic Current Visit: Yes Code(s): I10 - Essential (primary) hypertension (3) Hypothyroidism Status: Chronic Current Visit: No Code(s): E03.9 - Hypothyroidism, unspecified Type of Wound Date of Service: 05/27/17 Chief Complaint: Upper Back Ulcer. History of Wound: Ms Ty is a pleasant 82-year-old with past medical history of CKD, hypothyroidism and hypertension amongst others who presented here due to nonhealing upper back wound. Wound was said to have been noted by family in January. Patient believes that she had a rash that she kept picking at and which subsequently worsened to its current state. She denies any known discharge from the site. She feels well otherwise and denies chills, fever, nausea, vomiting, change in her bowel habits or otherwise feeling of unwell. She has had no management of this wound. She denies any history of diabetes. She had lived alone until now but currently lives with her son and daughter-in- law. Progress of Wound: Improving. Her son who is her primary caregiver is here today with her and does state that prior to the last visit the wound healed and so he had stopped applying any dressing over the wound for weeks and is not sure why to reopen. - Physical Exam Vital Signs Temp Pulse Resp BP 96.2 F L 77 16 150/57 H 05/27/17 10:34 05/27/17 10:34 05/27/17 10:34 05/27/17 10:34 General: Alert, Oriented x3, Cooperative, No apparent distress HEENT: Atraumatic, Normocephalic Oral: Moist Mucosa Neck: Supple Lungs: Normal air movement Extremities: No cyanosis Skin: Ulcer/ Wound Wound Measurements and Assessment WC - Nurse 1 - General Ulcer Measurement Start: 05/13/17 09:49 Freq: Status: Active Protocol: Activity Type Activity Date Activity User E-Sign Co-Sign Detail Recorded Client Recorded Date Recorded By Document 05/27/17 10:34 [facility] [id number] 05/27/17 10:42 [facility] 05/27/17 10:34 Wound Center Nurse 1 [Ulcer Assessment] #1 Upper Back - Midline -Combined with other wound No -Current Size (cm) - Length 0.6 -Current Size (cm) - Width 1.9 -Current Size (cm) - Depth 0.1 -Total Square Cm 1.14 -Photo Taken No -Epithelialization None Present -Tunneling No -Undermining/Tunneling No -Circular Undermining No -Exudate Amt Small (1-33%) -Exudate Type Serosanguineous -Wound Margin Distinct, Outline Attached -Granulation Amt None Present (0 %) -Slough/Fibrin Yes -Necrosis Amt Large (67-100%) -Necrotic Tissue Type Eschar -Structure Exposed N/A -Texture (Raquel-wound Skin Appearance) Scarring -Moisture (Raquel-wound Skin Appearance Dry/Scaly ) -Color (Raquel-wound Skin Appearance) Erythema -Temperature (Raquel-wound Skin No Abnormality Appearance) (Pt Warm) -Tenderness on Palpation (Raquel-wound No Skin Appearance) -Ulcer Cleansing Rinsed/ Irrigated with Saline -Foul Odor after Cleansing No -Anesthetic Used 4% Lidocaine Solution WC - Nurse 2 - General Ulcer CM Notes Start: 05/13/17 09:49 Freq: Status: Active Protocol: Activity Type Activity Date Activity User E-Sign Co-Sign Detail Recorded Client Recorded Date Recorded By Document 05/27/17 11:14 DV [id number] 05/27/17 11:16 DV 05/27/17 11:14 Wound Center Nurse 2 [Procedure/Treatment] -Time 11:15 -Correct Patient Yes -Correct Side, Site, Position Yes -Correct Procedure Yes -Procedure Performed Yes -Type of Procedure Debridement -Clinical Debridement Subcutaneous -Post Debridement Size (cm) - Length 1.7 -Post Debridement Size (cm) - Width 5.0 -Post Debridement Size (cm) - Depth 0.1 -Total Square Cm 8.50 -Wound/Ulcer Outcome Not Healed -Ulcer Cleansing Rinsed/ Irrigated with Saline -Foul Odor after Cleansing No -Bioengineered Tissue No -Bleeding Controlled with Pressure -Treatment Response Procedure Tolerated Well [See Physician Procedure note for Specifics] Pain Scale: 0-10 Numeric [Pain] -Is Patient Pain Free? Yes Musculoskeletal: No Muscle Wasting Neurological: Cranial nerves II-XII grossly intact Psych/Mental Status: Normal Affect Debridement Note Post-Debridement Measurements/Treatment WC - Nurse 2 - General Ulcer CM Notes Start: 05/13/17 09:49 Freq: Status: Active Protocol: Activity Type Activity Date Activity User E-Sign Co-Sign Detail Recorded Client Recorded Date Recorded By Document 05/13/17 11:09 DV [id number] 05/13/17 11:14 DV Document 05/27/17 11:14 DV [id number] 05/27/17 11:16 DV 05/13/17 05/27/17 11:09 11:14 Wound Center Nurse 2 #1 Upper Back - Midline -Time 11:09 11:15 -Correct Patient Yes Yes -Correct Side, Site, Position Yes Yes -Correct Procedure Yes Yes -Procedure Performed Yes Yes -Type of Procedure Debridement Debridement -Clinical Debridement Subcutaneous Subcutaneous -Post Debridement Size (cm) - Length 1.7 1.7 -Post Debridement Size (cm) - Width 5.0 5.0 -Post Debridement Size (cm) - Depth 0.1 0.1 -Total Square Cm 8.50 8.50 -Wound/Ulcer Outcome Not Healed Not Healed -Ulcer Cleansing Rinsed/ Rinsed/ Irrigated with Irrigated with Saline Saline -Foul Odor after Cleansing No No -Bioengineered Tissue No No -Bleeding Controlled with Pressure Pressure -Treatment Response Procedure Procedure Tolerated Well Tolerated Well Pain Scale: 0-10 Numeric Is Patient Pain Free? Yes Yes Wound debrided: Upper Back/Posterior Neck Wound Grade/Stage: Stage II Type of Debridement: Excisional debridement Anesthesia Used: 4% Lidocaine Solution Depth: Down to and including healthy tissue, in the subcutaneous layer Percentage of wound debrided: 100 Instrument Used: 5mm curette Tissue Removed: Slough and Devitalized tissue Severity: Fat Layer Exposed Amount of bleeding with debridement: Mild Bleeding Controlled with: Pressure Patient tolerated procedure well Assessment/Plan Active Problems Chronic ulcer of back (Chronic) Essential (primary) hypertension (Chronic) Assessment: 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 Plan: Improvement noted over the past week. Still significant slough burden with some crusting. Debridement done as documented above. Procedure was well tolerated. Continue Fibrocol moistened with Adaptic covering. Change daily to twice daily. Continue protein rich diet and supplements. Advised against scratching. May benefit from covering area always to prevent involuntary scratching and reopening of wound. Follow-up in 1 week. This note was generated with [employer] software. It may contain incorrect words, spelling, and punctuation that were not noted in checking the note before signing.
[2017-06-03 08:17] VITALS: BP 133/68; PULSE 56; RESP 18; TEMP 34.5; BMI 28.7
--- NOTE | 2017-06-03 10:35 | PCM.WC.PN ---
(1) Chronic ulcer of back Status: Chronic Current Visit: Yes Code(s): L98.429 - Non-pressure chronic ulcer of back with unspecified severity (2) Essential (primary) hypertension Status: Chronic Current Visit: Yes Code(s): I10 - Essential (primary) hypertension (3) Hypothyroidism Status: Chronic Current Visit: No Code(s): E03.9 - Hypothyroidism, unspecified Type of Wound Date of Service: 06/03/17 Chief Complaint: Upper Back Ulcer. History of Wound: Ms Ty is a pleasant 82-year-old with past medical history of CKD, hypothyroidism and hypertension amongst others who presented here due to nonhealing upper back wound. Wound was said to have been noted by family in January. Patient believes that she had a rash that she kept picking at and which subsequently worsened to its current state. She denies any known discharge from the site. She feels well otherwise and denies chills, fever, nausea, vomiting, change in her bowel habits or otherwise feeling of unwell. She has had no management of this wound. She denies any history of diabetes. She had lived alone until now but currently lives with her son and [id number]. Progress of Wound: Improving. New and old blisters noted on her neck and back. No known prior history of blistering. - Physical Exam Vital Signs Temp Pulse Resp BP 94.1 F L 56 L 18 133/68 H 06/03/17 08:17 06/03/17 08:17 06/03/17 08:17 06/03/17 08:17 General: Alert, Oriented x3, Cooperative, No apparent distress HEENT: Atraumatic, Normocephalic Oral: Moist Mucosa Neck: Supple Lungs: Normal air movement Cardiovascular: Regular rate Extremities: No cyanosis Skin: Ulcer/ Wound Wound Measurements and Assessment WC - Nurse 1 - General Ulcer Measurement Start: 05/13/17 09:49 Freq: Status: Active Protocol: Activity Type Activity Date Activity User E-Sign Co-Sign Detail Recorded Client Recorded Date Recorded By Document 06/03/17 08:17 [facility] [id number] 06/03/17 08:29 [facility] 06/03/17 08:17 Wound Center Nurse 1 [Ulcer Assessment] #1 Upper Back - Midline -Combined with other wound No -Current Size (cm) - Length 1.0 -Current Size (cm) - Width 1.7 -Current Size (cm) - Depth 0.1 -Total Square Cm 1.70 -Date of Last Picture (Recall this 05/13/17 field) -Photo Taken No -Epithelialization Small 1-33% -Tunneling No -Undermining/Tunneling No -Circular Undermining No -Classification - Thickness Full Thickness without Exposed Support Structure -Exudate Amt Small (1-33%) -Exudate Type Serosanguineous -Wound Margin Distinct, Outline Attached -Granulation Amt Small (1-33%) -Granulation Quality Pale [place] -Slough/Fibrin Yes -Necrosis Amt None Present (0 %) -Necrotic Tissue Type Adherent Slough -Structure Exposed N/A -Texture (Raquel-wound Skin Appearance) No Abnormality -Moisture (Raquel-wound Skin Appearance No Abnormality ) -Color (Raquel-wound Skin Appearance) No Abnormality -Temperature (Raquel-wound Skin No Abnormality Appearance) (Pt Warm) -Tenderness on Palpation (Raquel-wound No Skin Appearance) -Ulcer Cleansing Rinsed/ Irrigated with Saline -Foul Odor after Cleansing No -Anesthetic Used 5% Lidocaine Gel WC - Nurse 2 - General Ulcer CM Notes Start: 05/13/17 09:49 Freq: Status: Active Protocol: Activity Type Activity Date Activity User E-Sign Co-Sign Detail Recorded Client Recorded Date Recorded By Document 06/03/17 08:40 DV [id number] 06/03/17 08:45 DV 06/03/17 08:40 Wound Center Nurse 2 [Procedure/Treatment] -Time 08:41 -Correct Patient Yes -Correct Side, Site, Position Yes -Correct Procedure Yes -Procedure Performed Yes -Type of Procedure Debridement -Clinical Debridement Subcutaneous -Post Debridement Size (cm) - Length 0.9 -Post Debridement Size (cm) - Width 2.0 -Post Debridement Size (cm) - Depth 0.1 -Total Square Cm 1.80 -Wound/Ulcer Outcome Not Healed -Ulcer Cleansing Rinsed/ Irrigated with Saline -Foul Odor after Cleansing No -Bioengineered Tissue No -Bleeding Controlled with Pressure -Treatment Response Procedure Tolerated Well [See Physician Procedure note for Specifics] Pain Scale: 0-10 Numeric [Pain] -Is Patient Pain Free? Yes Musculoskeletal: No Muscle Wasting Neurological: Cranial nerves II-XII grossly intact Psych/Mental Status: Normal Affect Debridement Note Post-Debridement Measurements/Treatment WC - Nurse 2 - General Ulcer CM Notes Start: 05/13/17 09:49 Freq: Status: Active Protocol: Activity Type Activity Date Activity User E-Sign Co-Sign Detail Recorded Client Recorded Date Recorded By Document 05/13/17 11:09 DV [id number] 05/13/17 11:14 DV Document 05/27/17 11:14 DV [id number] 05/27/17 11:16 DV Document 05/27/17 11:15 DV [id number] 05/28/17 15:31 DV Document 06/03/17 08:40 DV [id number] 06/03/17 08:45 DV 05/13/17 05/27/17 05/27/17 11:09 11:14 11:15 Wound Center Nurse 2 #1 Upper Back - Midline -Time 11:09 11:15 11:15 -Correct Patient Yes Yes Yes -Correct Side, Site, Position Yes Yes Yes -Correct Procedure Yes Yes Yes -Procedure Performed Yes Yes Yes -Type of Procedure Debridement Debridement Debridement -Clinical Debridement Subcutaneous Subcutaneous Subcutaneous -Post Debridement Size (cm) - Length 1.7 1.7 0.8 -Post Debridement Size (cm) - Width 5.0 5.0 2.0 -Post Debridement Size (cm) - Depth 0.1 0.1 0.2 -Total Square Cm 8.50 8.50 1.60 -Wound/Ulcer Outcome Not Healed Not Healed Not Healed -Ulcer Cleansing Rinsed/ Rinsed/ Rinsed/ Irrigated with Irrigated with Irrigated with Saline Saline Saline -Foul Odor after Cleansing No No No -Bioengineered Tissue No No No -Bleeding Controlled with Pressure Pressure Pressure -Treatment Response Procedure Procedure Procedure Tolerated Well Tolerated Well Tolerated Well Pain Scale: 0-10 Numeric Is Patient Pain Free? Yes Yes Yes 06/03/17 08:40 Wound Center Nurse 2 #1 Upper Back - Midline -Time 08:41 -Correct Patient Yes -Correct Side, Site, Position Yes -Correct Procedure Yes -Procedure Performed Yes -Type of Procedure Debridement -Clinical Debridement Subcutaneous -Post Debridement Size (cm) - Length 0.9 -Post Debridement Size (cm) - Width 2.0 -Post Debridement Size (cm) - Depth 0.1 -Total Square Cm 1.80 -Wound/Ulcer Outcome Not Healed -Ulcer Cleansing Rinsed/ Irrigated with Saline -Foul Odor after Cleansing No -Bioengineered Tissue No -Bleeding Controlled with Pressure -Treatment Response Procedure Tolerated Well Pain Scale: 0-10 Numeric Is Patient Pain Free? 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 Plan: Improvement noted over the past week. Slough burden improving. New blistering noted on her neck and mid back. ??? Pemphigoid. Debridement done as documented above. Procedure was well tolerated. Will switch dressing to aquacel moistened with Adaptic covering. Change daily to twice daily. Continue protein rich diet and supplements. Advised against scratching. May benefit from covering area always to prevent involuntary scratching and reopening of wound. Follow-up in 1 week. This note was generated with [employer]ation software. It may contain incorrect words, spelling, and punctuation that were not noted in checking the note before signing.
--- NOTE | 2017-06-03 10:38 | PN.PCM_ITS ---
(1) Chronic ulcer of back Status: Chronic Current Visit: Yes Code(s): L98.429 - Non-pressure chronic ulcer of back with unspecified severity (2) Essential (primary) hypertension Status: Chronic Current Visit: Yes Code(s): I10 - Essential (primary) hypertension (3) Hypothyroidism Status: Chronic Current Visit: No Code(s): E03.9 - Hypothyroidism, unspecified Type of Wound Date of Service: 06/03/17 Chief Complaint: Upper Back Ulcer. History of Wound: Ms Ty is a pleasant 82-year-old with past medical history of CKD, hypothyroidism and hypertension amongst others who presented here due to nonhealing upper back wound. Wound was said to have been noted by family in January. Patient believes that she had a rash that she kept picking at and which subsequently worsened to its current state. She denies any known discharge from the site. She feels well otherwise and denies chills, fever, nausea, vomiting, change in her bowel habits or otherwise feeling of unwell. She has had no management of this wound. She denies any history of diabetes. She had lived alone until now but currently lives with her son and daughter-in- law. Progress of Wound: Improving. New and old blisters noted on her neck and back. No known prior history of blistering. - Physical Exam Vital Signs Temp Pulse Resp BP 94.1 F L 56 L 18 133/68 H 06/03/17 08:17 06/03/17 08:17 06/03/17 08:17 06/03/17 08:17 General: Alert, Oriented x3, Cooperative, No apparent distress HEENT: Atraumatic, Normocephalic Oral: Moist Mucosa Neck: Supple Lungs: Normal air movement Cardiovascular: Regular rate Extremities: No cyanosis Skin: Ulcer/ Wound Wound Measurements and Assessment WC - Nurse 1 - General Ulcer Measurement Start: 05/13/17 09:49 Freq: Status: Active Protocol: Activity Type Activity Date Activity User E-Sign Co-Sign Detail Recorded Client Recorded Date Recorded By Document 06/03/17 08:17 SHAWNA [id number] 06/03/17 08:29 SHAWNA 06/03/17 08:17 Wound Center Nurse 1 [Ulcer Assessment] #1 Upper Back - Midline -Combined with other wound No -Current Size (cm) - Length 1.0 -Current Size (cm) - Width 1.7 -Current Size (cm) - Depth 0.1 -Total Square Cm 1.70 -Date of Last Picture (Recall this 05/13/17 field) -Photo Taken No -Epithelialization Small 1-33% -Tunneling No -Undermining/Tunneling No -Circular Undermining No -Classification - Thickness Full Thickness without Exposed Support Structure -Exudate Amt Small (1-33%) -Exudate Type Serosanguineous -Wound Margin Distinct, Outline Attached -Granulation Amt Small (1-33%) -Granulation Quality Pale [place] -Slough/Fibrin Yes -Necrosis Amt None Present (0 %) -Necrotic Tissue Type Adherent Slough -Structure Exposed N/A -Texture (Raquel-wound Skin Appearance) No Abnormality -Moisture (Raquel-wound Skin Appearance No Abnormality ) -Color (Raquel-wound Skin Appearance) No Abnormality -Temperature (Raquel-wound Skin No Abnormality Appearance) (Pt Warm) -Tenderness on Palpation (Raquel-wound No Skin Appearance) -Ulcer Cleansing Rinsed/ Irrigated with Saline -Foul Odor after Cleansing No -Anesthetic Used 5% Lidocaine Gel WC - Nurse 2 - General Ulcer CM Notes Start: 05/13/17 09:49 Freq: Status: Active Protocol: Activity Type Activity Date Activity User E-Sign Co-Sign Detail Recorded Client Recorded Date Recorded By Document 06/03/17 08:40 DV [id number] 06/03/17 08:45 DV 06/03/17 08:40 Wound Center Nurse 2 [Procedure/Treatment] -Time 08:41 -Correct Patient Yes -Correct Side, Site, Position Yes -Correct Procedure Yes -Procedure Performed Yes -Type of Procedure Debridement -Clinical Debridement Subcutaneous -Post Debridement Size (cm) - Length 0.9 -Post Debridement Size (cm) - Width 2.0 -Post Debridement Size (cm) - Depth 0.1 -Total Square Cm 1.80 -Wound/Ulcer Outcome Not Healed -Ulcer Cleansing Rinsed/ Irrigated with Saline -Foul Odor after Cleansing No -Bioengineered Tissue No -Bleeding Controlled with Pressure -Treatment Response Procedure Tolerated Well [See Physician Procedure note for Specifics] Pain Scale: 0-10 Numeric [Pain] -Is Patient Pain Free? Yes Musculoskeletal: No Muscle Wasting Neurological: Cranial nerves II-XII grossly intact Psych/Mental Status: Normal Affect Debridement Note Post-Debridement Measurements/Treatment WC - Nurse 2 - General Ulcer CM Notes Start: 05/13/17 09:49 Freq: Status: Active Protocol: Activity Type Activity Date Activity User E-Sign Co-Sign Detail Recorded Client Recorded Date Recorded By Document 05/13/17 11:09 DV [id number] 05/13/17 11:14 DV Document 05/27/17 11:14 DV [id number] 05/27/17 11:16 DV Document 05/27/17 11:15 DV [id number] 05/28/17 15:31 DV Document 06/03/17 08:40 DV [id number] 06/03/17 08:45 DV 05/13/17 05/27/17 05/27/17 11:09 11:14 11:15 Wound Center Nurse 2 #1 Upper Back - Midline -Time 11:09 11:15 11:15 -Correct Patient Yes Yes Yes -Correct Side, Site, Position Yes Yes Yes -Correct Procedure Yes Yes Yes -Procedure Performed Yes Yes Yes -Type of Procedure Debridement Debridement Debridement -Clinical Debridement Subcutaneous Subcutaneous Subcutaneous -Post Debridement Size (cm) - Length 1.7 1.7 0.8 -Post Debridement Size (cm) - Width 5.0 5.0 2.0 -Post Debridement Size (cm) - Depth 0.1 0.1 0.2 -Total Square Cm 8.50 8.50 1.60 -Wound/Ulcer Outcome Not Healed Not Healed Not Healed -Ulcer Cleansing Rinsed/ Rinsed/ Rinsed/ Irrigated with Irrigated with Irrigated with Saline Saline Saline -Foul Odor after Cleansing No No No -Bioengineered Tissue No No No -Bleeding Controlled with Pressure Pressure Pressure -Treatment Response Procedure Procedure Procedure Tolerated Well Tolerated Well Tolerated Well Pain Scale: 0-10 Numeric Is Patient Pain Free? Yes Yes Yes 06/03/17 08:40 Wound Center Nurse 2 #1 Upper Back - Midline -Time 08:41 -Correct Patient Yes -Correct Side, Site, Position Yes -Correct Procedure Yes -Procedure Performed Yes -Type of Procedure Debridement -Clinical Debridement Subcutaneous -Post Debridement Size (cm) - Length 0.9 -Post Debridement Size (cm) - Width 2.0 -Post Debridement Size (cm) - Depth 0.1 -Total Square Cm 1.80 -Wound/Ulcer Outcome Not Healed -Ulcer Cleansing Rinsed/ Irrigated with Saline -Foul Odor after Cleansing No -Bioengineered Tissue No -Bleeding Controlled with Pressure -Treatment Response Procedure Tolerated Well Pain Scale: 0-10 Numeric Is Patient Pain Free? 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 Plan: Improvement noted over the past week. Slough burden improving. New blistering noted on her neck and mid back. ??? Pemphigoid. Debridement done as documented above. Procedure was well tolerated. Will switch dressing to aquacel moistened with Adaptic covering. Change daily to twice daily. Continue protein rich diet and supplements. Advised against scratching. May benefit from covering area always to prevent involuntary scratching and reopening of wound. Follow-up in 1 week. This note was generated with [employer] dictation software. It may contain incorrect words, spelling, and punctuation that were not noted in checking the note before signing.
== END 2017-06-07 23:59 ==
LOC: WC 08:00
PROVIDERS: Family Provider Family Medicine; PCP Family Medicine; Visit Provider Internal Medicine
DX: L98.422 Non-pressure chronic ulcer of back with fat layer exposed (principal); I12.9 Hypertensive chronic kidney disease with stage 1 through stage 4 chronic kidney disease, or unspecified chronic kidney disease; N18.9 Chronic kidney disease, unspecified; E03.9 Hypothyroidism, unspecified
CPT/HCPCS: 11042

== ENCOUNTER 2017-06-17 08:18 | Outpatient (RCR) | payer MEDICARE, OTHER, SELFPAY ==
[2017-06-08 00:39] VITALS: BP 146/77; PULSE 56; RESP 18; TEMP 34.5; BMI 28.7
[2017-06-17 08:39] VITALS: BMI 28.7
--- NOTE | 2017-06-17 08:48 | PCM.WC.PN ---
(1) Chronic ulcer of back Status: Chronic Code(s): L98.429 - Non-pressure chronic ulcer of back with unspecified severity (2) Essential (primary) hypertension Status: Chronic Code(s): I10 - Essential (primary) hypertension (3) Hypothyroidism Status: Chronic Code(s): E03.9 - Hypothyroidism, unspecified Type of Wound Date of Service: 06/17/17 Chief Complaint: Upper Back Ulcer. History of Wound: Ms Ty is a pleasant 82-year-old with past medical history of CKD, hypothyroidism and hypertension amongst others who presented here due to nonhealing upper back wound. Wound was said to have been noted by family in January. Patient believes that she had a rash that she kept picking at and which subsequently worsened to its current state. She denies any known discharge from the site. She feels well otherwise and denies chills, fever, nausea, vomiting, change in her bowel habits or otherwise feeling of unwell. She has had no management of this wound. She denies any history of diabetes. She had lived alone until now but currently lives with her son and [id number]. Progress of Wound: Improving. - Physical Exam Vital Signs Temp Pulse Resp BP 94.1 F L 56 L 18 146/77 H 06/08/17 00:39 06/08/17 00:39 06/08/17 00:39 06/08/17 00:39 General: Alert, Oriented x3, Cooperative, No apparent distress HEENT: Atraumatic, Normocephalic Oral: Moist Mucosa Neck: Supple Lungs: Normal air movement Extremities: No cyanosis Skin: Ulcer/ Wound Wound Measurements and Assessment WC - Nurse 1 - General Ulcer Measurement Start: 06/17/17 08:38 Freq: Status: Active Protocol: Activity Type Activity Date Activity User E-Sign Co-Sign Detail Recorded Client Recorded Date Recorded By Document 06/17/17 08:39 DV [id number] 06/17/17 08:44 DV 06/17/17 08:39 Wound Center Nurse 1 [Ulcer Assessment] #1 Upper Back - Midline -Combined with other wound No -Current Size (cm) - Length 0.9 -Current Size (cm) - Width 3.0 -Current Size (cm) - Depth 0.1 -Total Square Cm 2.70 -Photo Taken No -Epithelialization Small 1-33% -Tunneling No -Undermining/Tunneling No -Circular Undermining No -Classification - Thickness Full Thickness without Exposed Support Structure -Exudate Amt None Present (0 %) -Wound Margin Flat & Intact -Granulation Amt Small (1-33%) -Granulation Quality Pale [place] -Slough/Fibrin Yes -Necrosis Amt Large (67-100%) -Necrotic Tissue Type Adherent Slough -Structure Exposed None/Limited to Skin Breakdown -Texture (Raquel-wound Skin Appearance) Assessed Scarring -Moisture (Raquel-wound Skin Appearance Assessed ) Dry/Scaly -Color (Raquel-wound Skin Appearance) Assessed Erythema -Temperature (Raquel-wound Skin No Abnormality Appearance) (Pt Warm) -Ulcer Cleansing Rinsed/ Irrigated with Saline -Foul Odor after Cleansing No -Anesthetic Used 4% Lidocaine Solution [Edema Assessment] -Lower Limb Edema Present No WC - Nurse 2 - General Ulcer CM Notes Start: 06/17/17 08:38 Freq: Status: Active Protocol: Activity Type Activity Date Activity User E-Sign Co-Sign Detail Recorded Client Recorded Date Recorded By Document 06/17/17 08:39 DV [id number] 06/17/17 08:44 DV 06/17/17 08:39 Wound Center Nurse 2 [Procedure/Treatment] #1 Upper Back - Midline -Time 08:42 -Correct Patient Yes -Correct Side, Site, Position Yes -Correct Procedure Yes -Procedure Performed Yes -Type of Procedure Debridement -Clinical Debridement Subcutaneous -Post Debridement Size (cm) - Length 1.0 -Post Debridement Size (cm) - Width 3.0 -Post Debridement Size (cm) - Depth 0.1 -Total Square Cm 3.00 -Wound/Ulcer Outcome Not Healed -Ulcer Cleansing Rinsed/ Irrigated with Saline -Foul Odor after Cleansing No -Bioengineered Tissue No -Bleeding Controlled with NA -Treatment Response Procedure Tolerated Well Musculoskeletal: No Muscle Wasting Neurological: Cranial nerves II-XII grossly intact Psych/Mental Status: Normal Affect Debridement Note Post-Debridement Measurements/Treatment WC - Nurse 2 - General Ulcer CM Notes Start: 06/17/17 08:38 Freq: Status: Active Protocol: Activity Type Activity Date Activity User E-Sign Co-Sign Detail Recorded Client Recorded Date Recorded By Document 06/17/17 08:39 DV [id number] 06/17/17 08:44 DV 06/17/17 08:39 Wound Center Nurse 2 #1 Upper Back - Midline -Time 08:42 -Correct Patient Yes -Correct Side, Site, Position Yes -Correct Procedure Yes -Procedure Performed Yes -Type of Procedure Debridement -Clinical Debridement Subcutaneous -Post Debridement Size (cm) - Length 1.0 -Post Debridement Size (cm) - Width 3.0 -Post Debridement Size (cm) - Depth 0.1 -Total Square Cm 3.00 -Wound/Ulcer Outcome Not Healed -Ulcer Cleansing Rinsed/ Irrigated with Saline -Foul Odor after Cleansing No -Bioengineered Tissue No -Bleeding Controlled with NA -Treatment Response Procedure Tolerated Well Wound debrided: Upper back Wound Grade/Stage: Stage II Type of Debridement: Excisional debridement Anesthesia Used: 4% Lidocaine Solution Depth: Down to and including healthy tissue, in the subcutaneous layer Percentage of wound debrided: 100 Instrument Used: 5mm curette Tissue Removed: Slough and devitalized tissue Severity: Fat Layer Exposed Amount of bleeding with debridement: Mild Bleeding Controlled with: Pressure Patient tolerated procedure well Assessment/Plan Assessment: 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 Plan: Wound continues to show improvment. Two clustered areas seperated by an island. She also followed up with her PCP for bullous lesions noted during her last visit. Debridement done as documented above. Procedure was well tolerated. Continue aquacel moistened with Adaptic covering. Change daily. Continue protein rich diet and supplements. Advised against scratching. May benefit from covering area always to prevent involuntary scratching and reopening of wound. Follow-up in 1 week. This note was generated with [employer] dictation software. It may contain incorrect words, spelling, and punctuation that were not noted in checking the note before signing.
--- NOTE | 2017-06-17 08:52 | PN.PCM_ITS ---
(1) Chronic ulcer of back Status: Chronic Code(s): L98.429 - Non-pressure chronic ulcer of back with unspecified severity (2) Essential (primary) hypertension Status: Chronic Code(s): I10 - Essential (primary) hypertension (3) Hypothyroidism Status: Chronic Code(s): E03.9 - Hypothyroidism, unspecified Type of Wound Date of Service: 06/17/17 Chief Complaint: Upper Back Ulcer. History of Wound: Ms Ty is a pleasant 82-year-old with past medical history of CKD, hypothyroidism and hypertension amongst others who presented here due to nonhealing upper back wound. Wound was said to have been noted by family in January. Patient believes that she had a rash that she kept picking at and which subsequently worsened to its current state. She denies any known discharge from the site. She feels well otherwise and denies chills, fever, nausea, vomiting, change in her bowel habits or otherwise feeling of unwell. She has had no management of this wound. She denies any history of diabetes. She had lived alone until now but currently lives with her son and daughter-in- law. Progress of Wound: Improving. - Physical Exam Vital Signs Temp Pulse Resp BP 94.1 F L 56 L 18 146/77 H 06/08/17 00:39 06/08/17 00:39 06/08/17 00:39 06/08/17 00:39 General: Alert, Oriented x3, Cooperative, No apparent distress HEENT: Atraumatic, Normocephalic Oral: Moist Mucosa Neck: Supple Lungs: Normal air movement Extremities: No cyanosis Skin: Ulcer/ Wound Wound Measurements and Assessment WC - Nurse 1 - General Ulcer Measurement Start: 06/17/17 08:38 Freq: Status: Active Protocol: Activity Type Activity Date Activity User E-Sign Co-Sign Detail Recorded Client Recorded Date Recorded By Document 06/17/17 08:39 DV [id number] 06/17/17 08:44 DV 06/17/17 08:39 Wound Center Nurse 1 [Ulcer Assessment] #1 Upper Back - Midline -Combined with other wound No -Current Size (cm) - Length 0.9 -Current Size (cm) - Width 3.0 -Current Size (cm) - Depth 0.1 -Total Square Cm 2.70 -Photo Taken No -Epithelialization Small 1-33% -Tunneling No -Undermining/Tunneling No -Circular Undermining No -Classification - Thickness Full Thickness without Exposed Support Structure -Exudate Amt None Present (0 %) -Wound Margin Flat & Intact -Granulation Amt Small (1-33%) -Granulation Quality Pale [place] -Slough/Fibrin Yes -Necrosis Amt Large (67-100%) -Necrotic Tissue Type Adherent Slough -Structure Exposed None/Limited to Skin Breakdown -Texture (Raquel-wound Skin Appearance) Assessed Scarring -Moisture (Raquel-wound Skin Appearance Assessed ) Dry/Scaly -Color (Raquel-wound Skin Appearance) Assessed Erythema -Temperature (Raquel-wound Skin No Abnormality Appearance) (Pt Warm) -Ulcer Cleansing Rinsed/ Irrigated with Saline -Foul Odor after Cleansing No -Anesthetic Used 4% Lidocaine Solution [Edema Assessment] -Lower Limb Edema Present No WC - Nurse 2 - General Ulcer CM Notes Start: 06/17/17 08:38 Freq: Status: Active Protocol: Activity Type Activity Date Activity User E-Sign Co-Sign Detail Recorded Client Recorded Date Recorded By Document 06/17/17 08:39 DV [id number] 06/17/17 08:44 DV 06/17/17 08:39 Wound Center Nurse 2 [Procedure/Treatment] #1 Upper Back - Midline -Time 08:42 -Correct Patient Yes -Correct Side, Site, Position Yes -Correct Procedure Yes -Procedure Performed Yes -Type of Procedure Debridement -Clinical Debridement Subcutaneous -Post Debridement Size (cm) - Length 1.0 -Post Debridement Size (cm) - Width 3.0 -Post Debridement Size (cm) - Depth 0.1 -Total Square Cm 3.00 -Wound/Ulcer Outcome Not Healed -Ulcer Cleansing Rinsed/ Irrigated with Saline -Foul Odor after Cleansing No -Bioengineered Tissue No -Bleeding Controlled with NA -Treatment Response Procedure Tolerated Well Musculoskeletal: No Muscle Wasting Neurological: Cranial nerves II-XII grossly intact Psych/Mental Status: Normal Affect Debridement Note Post-Debridement Measurements/Treatment WC - Nurse 2 - General Ulcer CM Notes Start: 06/17/17 08:38 Freq: Status: Active Protocol: Activity Type Activity Date Activity User E-Sign Co-Sign Detail Recorded Client Recorded Date Recorded By Document 06/17/17 08:39 DV [id number] 06/17/17 08:44 DV 06/17/17 08:39 Wound Center Nurse 2 #1 Upper Back - Midline -Time 08:42 -Correct Patient Yes -Correct Side, Site, Position Yes -Correct Procedure Yes -Procedure Performed Yes -Type of Procedure Debridement -Clinical Debridement Subcutaneous -Post Debridement Size (cm) - Length 1.0 -Post Debridement Size (cm) - Width 3.0 -Post Debridement Size (cm) - Depth 0.1 -Total Square Cm 3.00 -Wound/Ulcer Outcome Not Healed -Ulcer Cleansing Rinsed/ Irrigated with Saline -Foul Odor after Cleansing No -Bioengineered Tissue No -Bleeding Controlled with NA -Treatment Response Procedure Tolerated Well Wound debrided: Upper back Wound Grade/Stage: Stage II Type of Debridement: Excisional debridement Anesthesia Used: 4% Lidocaine Solution Depth: Down to and including healthy tissue, in the subcutaneous layer Percentage of wound debrided: 100 Instrument Used: 5mm curette Tissue Removed: Slough and devitalized tissue Severity: Fat Layer Exposed Amount of bleeding with debridement: Mild Bleeding Controlled with: Pressure Patient tolerated procedure well Assessment/Plan Assessment: 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 Plan: Wound continues to show improvment. Two clustered areas seperated by an island. She also followed up with her PCP for bullous lesions noted during her last visit. Debridement done as documented above. Procedure was well tolerated. Continue aquacel moistened with Adaptic covering. Change daily. Continue protein rich diet and supplements. Advised against scratching. May benefit from covering area always to prevent involuntary scratching and reopening of wound. Follow-up in 1 week. This note was generated with [employer] dictation software. It may contain incorrect words, spelling, and punctuation that were not noted in checking the note before signing.
== END 2017-07-08 23:59 ==
LOC: WC 08:18
PROVIDERS: Family Provider Family Medicine; PCP Family Medicine; Visit Provider Internal Medicine
DX: L98.422 Non-pressure chronic ulcer of back with fat layer exposed (principal); I10 Essential (primary) hypertension; E03.9 Hypothyroidism, unspecified
CPT/HCPCS: 11042

== ENCOUNTER → 2017-06-21 10:33 | Outpatient (CLI) | payer MEDICARE, OTHER, SELFPAY ==
--- NOTE | 2017-06-21 10:39 | RAD_ITS ---
STUDY: X-RAY - RIGHT HAND, ATTENTION RIGHT THUMB. REASON FOR EXAM: Female, 82 years old. Pain and soft tissue swelling following injury. TECHNIQUE: 3 view(s) of the finger were obtained. COMPARISON: None. FINDINGS: Normal metacarpal head. Normal metacarpophalangeal joint. Lateral dislocation of the distal interphalangeal joint of the thumb. Soft tissue swelling. RAD/Finger(s) Min 2 Views IMPRESSION: Lateral dislocation of the distal interphalangeal joint of the thumb with overlying soft tissue swelling. Electronically Signed: David Albarado MD at 11:06 EDT Tel [phone], Service support ,
[2017-06-21 12:56] LABS: Anion Gap 11 (5-15); BUN 33 mg/dL (7-18); BUN/Creat Ratio 15.3 RATIO (10-20); Calcium,Total 9.4 mg/dL (8.5-10.1); Chloride 100 mmol/L (98-107); Creatinine, Serum 2.15 mg/dL (0.55-1.02); EST Glomerular Filtration Rate 23 mL/min (>60); Est Glom Filt Rate - Afr Amer 28 mL/min (>60); Glucose 84 mg/dL (74-106); Potassium 3.5 mmol/L (3.5-5.1); Sodium Level 139 mmol/L (136-145)
== END ==
PROVIDERS: Family Provider Family Medicine; PCP Family Medicine; Visit Provider Family Medicine
DX: M79.644 Pain in right finger(s) (principal); N18.3 Chronic kidney disease, stage 3 (moderate)
CPT/HCPCS: 36415; 73140; 80048

== ENCOUNTER 2017-06-24 09:23 | Day surgery (SDC) | payer MEDICARE, OTHER, SELFPAY ==
[2017-06-24 10:00] VITALS: BP 127/53; PULSE 57; RESP 16; TEMP 35.5; O2SAT 95; BMI 27.4
--- NOTE | 2017-06-24 10:54 | RAD_ITS ---
STUDY: X-RAY - RIGHT HAND, ATTENTION RIGHT THUMB. REASON FOR EXAM: Female, 82 years old. Pinning of the distal interphalangeal joint of the thumb. TECHNIQUE: 3 intraoperative view(s) of the finger were obtained. COMPARISON: Comparison is made with prior study dated June 21, 2017. FINDINGS: The patient is status post pinning of the distal interphalangeal joint of the thumb. There is good alignment. RAD/Finger(s) Min 2 Views IMPRESSION: Percutaneous pinning of the distal interphalangeal joint of the thumb. Electronically Signed: David Albarado MD at 14:01 EDT Tel [phone], Service support ,
[2017-06-24] MEDS: Bupivacaine Mpf 0.5% 30 ML VIAL (11:11)
[2017-06-24 12:32] VITALS: BP 127/53; BP 147/74; PULSE 70; RESP 16; TEMP 36.1; O2SAT 95
== END 2017-06-24 13:05 | disposition home or self-care (01) ==
LOC: SDC 09:25 → AC 09:27
PROVIDERS: Family Provider Family Medicine; PCP Family Medicine; Visit Provider Orthopaedic Surgery
PROC: (CPT 26860; principal; 2017-06-24 10:40)
DX: M24.444 Recurrent dislocation, right finger (principal); M19.90 Unspecified osteoarthritis, unspecified site; I50.9 Heart failure, unspecified; F32.9 Major depressive disorder, single episode, unspecified; E78.00 Pure hypercholesterolemia, unspecified; G47.30 Sleep apnea, unspecified; E07.9 Disorder of thyroid, unspecified; H54.7 Unspecified visual loss; I12.9 Hypertensive chronic kidney disease with stage 1 through stage 4 chronic kidney disease, or unspecified chronic kidney disease; K21.9 Gastro-esophageal reflux disease without esophagitis; N18.3 Chronic kidney disease, stage 3 (moderate); Z79.51 Long term (current) use of inhaled steroids; Z79.899 Other long term (current) drug therapy
CPT/HCPCS: 01830; 26860; 73140; 76000; J7120

== ENCOUNTER → 2017-07-07 12:12 | Outpatient (CLI) | payer MEDICARE, OTHER, SELFPAY ==
[2017-07-07 13:24] LABS: Anion Gap 7 (5-15); BUN 24 mg/dL (7-18); BUN/Creat Ratio 20.2 RATIO (10-20); Calcium,Total 9.2 mg/dL (8.5-10.1); Chloride 104 mmol/L (98-107); Creatinine, Serum 1.19 mg/dL (0.55-1.02); EST Glomerular Filtration Rate 46 mL/min (>60); Est Glom Filt Rate - Afr Amer 56 mL/min (>60); Glucose 82 mg/dL (74-106); Potassium 3.9 mmol/L (3.5-5.1); Sodium Level 142 mmol/L (136-145)
== END ==
PROVIDERS: Family Provider Family Medicine; PCP Family Medicine; Visit Provider Family Medicine
DX: N18.3 Chronic kidney disease, stage 3 (moderate) (principal)
CPT/HCPCS: 36415; 80048

== ENCOUNTER 2017-07-19 14:12 | Outpatient (RCR) | payer MEDICARE, OTHER, SELFPAY ==
[2017-07-09 00:36] VITALS: BP 146/77; PULSE 56; RESP 18; TEMP 34.5; BMI 28.7
== END 2017-08-07 23:59 ==
LOC: WC 14:12
PROVIDERS: Family Provider Family Medicine; PCP Family Medicine; Visit Provider Internal Medicine
DX: Z09 Encounter for follow-up examination after completed treatment for conditions other than malignant neoplasm (principal)
CPT/HCPCS: 99213; G0463

== ENCOUNTER 2017-07-27 13:00 | Outpatient (RCR) | payer MEDICARE, OTHER, SELFPAY ==
--- NOTE | 2017-06-18 13:24 | HP.PTEVAL_ITS ---
Patient's Visit Information MARV DUNBAR is a 82 year old F referred to Physical Therapy by Javed Carbajal DO with a diagnosis of Osteoarthritis. Date of Evaluation: 06/18/17 Physical Therapist: Jono Piña - Visit Plan Frequency: 2x /Week Duration: 4-6 Weeks Plan: Start with BLE strengthening, static progressing to dynamic balance. Progress HEP as tolerated and safely. - Subjective Subjective: Pt. is here today for initial evaluation for general OA. Pt. reports mild pain in her low back with walking. Pt. reports having a few falls, with last one being in early May. Pt. started using a rollator at that point in time. She desires to get back to using a single point cane. Pt. is currently living with family and has been doing so since January of last year, family reports that she will most likely live there permanently, but pt. desires to get back home. She is currently living a mostly sedentary life style with minimal walking, not leaving her house, and is sleeping in a reclining chair due to breathing better. Pt. is hopeful to get back to walking with her cane. PMH- CVD, HTN, CKD stage III, anemia, COPD, OA, osteoporosis, B leg edema. Past surgical history- 2 heart stints 2011, hernia repair 2010. - Pain Low back pain Pain Intensity (Out of 10): 2 Pain Intensity Range: 0, 6 - Objective POSTURE: Pt has overall flexed posture in sitting and standing. She has increased thoracic kyphosis, rounded shoulders, FH posture; Pt. stands in wide ANIYAH. Pt. uses balance aide to maintain stability, either walker or cane. PALPATION: Pt. has no pain with palpation of lumbar spine or bilateral hips. NEUROLOGICAL: Pt. has normal sensation of bilateral LEs to light and sharp touch. Pt. has 2+ achilles and patellar DTR bilaterally. Pt. is able to rise on heels and toes without visible weakness, but does require balance aide to maintain stability. ROM: Pt. has full B knee and hip ROM. LUMBAR SPINE: flexion nil loss NE, ext mod loss increase NW, SB min loss NE bilat, rotation mod loss NE bilat. Pt. has tightness noted through bilateral HS, R worse than L. MMT: RLE- ankle 5/5 throughout; knee- ext 4+/5, flexion 4/5; hip- flexion 4/ 5, abd 4/5, ext 4/5. LLE- ankle 5/5 throughout; knee- ext 4/5, flexon 4/5; hip- flexion 4/5, abd 4/5, ext 4/5. Core strength- poor. GAIT: Pt. ambulates with rollator with ROBERT without LOB, but has flexed posture rounded shoulders. Pt. ambulated 1x218' with increased fatigue with limiting factor. ANGELINA with cane with proper techniques. Pt. has increased postural sway with use of cane. Pt. ambulated 78ft. with reports of increased fatigue, SpO2 at 88% post gait. Deep breathing raised to 92 within 2 minutes. - Balance Scores Functional Gait Assessment Score: 7 % Disability: 76.6700 - Goals Goal 1:: Pt. to be I with HEP. Goal Time Frame: 4-6 Weeks Goal 2:: Pt. to have increased BLE strength by 1/2 grade of all effected musculature allowing for increased stability with all functional mobility. Goal Time Frame: 4-6 Weeks Goal 3:: Pt. to ambulate with least restrictive device upto 300ft. without LOB and increase stabilty and upright posture allowing for increased community mobility. Goal Time Frame: 4-6 Weeks Goal 4:: Pt. to have increased FGA score to 13/30 indicating increased stability and reduce risk for future falls. Goal Time Frame: 4-6 Weeks - Rehabilitation Potential Physical Therapy Diagnosis: Pt. has signs and symptoms consistent with general debility and weakness. Pt. lives a fairly sedintary life style and has had an overall decline in functional mobility over the last few years. She has multiple co morbidities adding to this lifestyle and would benefit from PT to increase BLE strength, stability in stance and to improve gait allowing for greater general activity in home with improved safety. Rehabilitation Potential: Good - Anticipated Interventions Patient/Client Instruction: Educate patient on: Condition, Plan of Care, Risk Factors, Benefits of Fitness Program For the Purpose of:: To improve safety, To improve health and function, To foster healthy habits, To improve decision making, To facilitate caregiver knowledge, To improve self management, To prevent re-injury, To improve ability to perform tasks related to life management, To improve tolerance to ADL's Therapeutic Exercise to Include: Strength training, Power training, Balance training, Agility training, Postural training, Flexibilty training, Gait and locomotor training, Dynamic Lumbar Stabilization For the Purpose of:: To decrease pain, To improve nutrient delivery to tissue, To increase oxygenation perfusion, To improve muscle performance and motor function, To improve gait and locomotor functions, To improve health of tissue, To decrease soft tissue restriction, To increase flexibility/ROM, To improve endurance, To improve balance Thank you for the opportunity to evaluate your patient. For Medicare and Medicare HMO plans, please review the plan of care and approve it. It will need to be FAXED BACK to us at [phone] for Medicare purposes. Please let me know if there are questions or concerns regarding this plan of care. Physician Signature: Date:
--- NOTE | 2017-11-03 12:29 | HP.PT.NRP ---
HP - Discharge Summary (1) - Patient Information MAY Mando DUNBAR was seen in my office for initial evaluation on 06/18/17. The following Plan of Care was established for this patient: Initial Frequency: 2x /Week Initial Duration: 4-6 Weeks - Anticipated Interventions Patient/Client Instruction: Educate patient on: Condition, Plan of Care, Risk Factors, Benefits of Fitness Program For the Purpose of:: To improve safety, To improve health and function, To foster healthy habits, To improve decision making, To facilitate caregiver knowledge, To improve self management, To prevent re-injury, To improve ability to perform tasks related to life management, To improve tolerance to ADL's Therapeutic Exercise to Include: Strength training, Power training, Balance training, Agility training, Postural training, Flexibilty training, Gait and locomotor training, Dynamic Lumbar Stabilization For the Purpose of:: To decrease pain, To improve nutrient delivery to tissue, To increase oxygenation perfusion, To improve muscle performance and motor function, To improve gait and locomotor functions, To improve health of tissue, To decrease soft tissue restriction, To increase flexibility/ROM, To improve endurance, To improve balance This patient was last seen in our office 07/27/17. Pertinent comments regarding their Physical therapy will appear below: Pt. was seen in PT for general strength and balance. She slowly progressed, but did not return after last visit. Pt. has not been seen in ~3 months and will be DC from PT at this point in time. At this point I will be discontinuing this patient from physical therapy. I would be happy to see this patient again in the future if found appropriate by the physician. Thank you! Jono Piña
== END 2017-07-27 19:00 | disposition home or self-care (01) ==
LOC: PT 13:00
PROVIDERS: Family Provider Family Medicine; PCP Family Medicine; Visit Provider Family Medicine
DX: M19.90 Unspecified osteoarthritis, unspecified site (principal)
CPT/HCPCS: 97110; 97162; 97530

== ENCOUNTER 2017-08-20 18:23 | Emergency (ER) | payer MEDICARE, OTHER, SELFPAY ==
[2017-08-20 18:24] VITALS: BP 94/44; PULSE 58; RESP 18; TEMP 36.6; O2SAT 95; BMI 26.6
--- NOTE | 2017-08-20 19:24 | CT_ITS ---
STUDY: CT BRAIN WITHOUT CONTRAST REASON FOR EXAM: Female, 82 years old. Headache. RADIATION DOSAGE (If Supplied By Facility): CTDIvol = ( 44.99 ) mGy, DLP = ( 812.98 ) mGycm TECHNIQUE: Transaxial CT imaging of the brain was performed without administration of intravenous contrast material. Individualized dose optimization techniques were used for this CT. COMPARISON: CT of the head, May 27, 2017. FINDINGS: Normal soft tissue structures. Normal calvarium. Normal size ventricles and extra-axial spaces for the patient's age. Normal white matter tracts of the cerebral hemispheres. There are small punctate calcifications of the basal ganglia which are seen in the aging brain as a normal variant. Normal brainstem. Normal cerebellum. There is no intracranial hemorrhage. There are no findings of an acute ischemic infarction. There is sphenoid and ethmoid sinusitis. CT/Brain/Head without Contrast IMPRESSION: 1. No evidence of acute intracranial or calvarial abnormality. There is no major interval change. 2. Sinusitis. This appears mildly improved when compared to the prior exam. Electronically Signed: Raul Camargo DO at 20:16 EDT Tel [phone], Service support ,
--- NOTE | 2017-08-20 19:25 | EKG12_ITS ---
Test Reason : FATIGUE Blood Pressure : / mmHG Vent. Rate : 054 BPM Atrial Rate : 054 BPM P-R Int : 184 ms QRS Dur : 104 ms QT Int : 448 ms P-R-T Axes : 063 035 017 degrees QTc Int : 424 ms Sinus bradycardia Nonspecific T wave abnormality Abnormal ECG Confirmed by RADHA RIVAS, STEVE ([id number]), scientific editor FLYNN PATRICIO ([id number]) on 08/24/2017 1:49:02 PM Referred By: Javed Carbajal Confirmed By:STEVE GARCIA MD
--- NOTE | 2017-08-20 19:29 | RAD_ITS ---
STUDY: X-RAY CHEST REASON FOR EXAM: Female, 82 years old. Lethargy. TECHNIQUE: Single AP portable view of the chest. COMPARISON: May 26, 2017. FINDINGS: Telemetry wires overlie the chest. The lungs are clear and expanded. There is no demonstrated pleural abnormality. Normal size heart. Normal mediastinum and crescencio. Normal visualized pulmonary arteries. Normal visualized aortic arch and descending thoracic aorta. The thoracic spine is obscured by the mediastinum. Normal visualized ribs, clavicles, and shoulders. There is no demonstrated abnormality of the visualized soft tissue structures of the upper abdomen. RAD/Chest 1 View (Portable) IMPRESSION: No acute cardiopulmonary disease or interval change. Electronically Signed: Raul Camargo DO at 21:18 EDT Tel [phone], Service support ,
[2017-08-20 19:47] VITALS: BP 108/54; PULSE 54; RESP 20; O2SAT 96
[2017-08-20] MEDS: Ondansetron 4 MG/2 ML Vial IV (19:47)
[2017-08-20] MEDS: HYDROcodone Bitartrate/Apap 5/325 Tablet PO (19:48)
[2017-08-20 19:50] LABS: Absolute Lymphocyte Count 1.16 X10^3/ul (0.83-4.51); Absolute Neutrophil Count 6.9 X10^3/uL (2.0-7.7); Basophil# 0.02 X10^3/uL; Basophil% 0.2 % (0-1); Eosinophil# 0.11 X10^3/uL; Eosinophils% 1.2 % (0-5); Hematocrit 34.4 % (37-47); Hemoglobin 11.1 g/dl (12.0-15.0); Lymphocyte # 1.16 X10^3/ul (4.0); Lymphocyte % 13.1 % (19-41); Mean Corp Hgb Conc 32.3 g/gl (32-36); Mean Corpuscular Hgb 29.3 pg (27.0-32.0); Mean Corpuscular Volume 90.8 fL (81-99); Mean Platelet Vol. 10.3 fl (6.2-12.0); Monocyte# 0.68 X10^3/uL; Monocyte% 7.7 % (0-10); Neutrophil # 6.87 X10^3/uL (2.7-7.7); Neutrophil % 77.7 % (47-70); Platelet Count 180 K/mm3 (150-450); Red Blood Count 3.79 M/mm3 (4.2-5.4); White Blood Count 8.9 K/mm3 (4.4-11.0)
[2017-08-20 19:54] LABS: POSITIVE COUNT NO; POSITIVE DIFFERENTIAL NO; POSITIVE MORPHOLOGY NO
[2017-08-20 20:04] LABS: Lactic Acid 1.4 mmol/L (0.4-2.0)
[2017-08-20 20:05] LABS: Anion Gap 7 (5-15); BUN 35 mg/dL (7-18); BUN/Creat Ratio 20.1 RATIO (10-20); Calcium,Total 8.9 mg/dL (8.5-10.1); Chloride 102 mmol/L (98-107); Creatinine, Serum 1.74 mg/dL (0.55-1.02); EST Glomerular Filtration Rate 30 mL/min (>60); Est Glom Filt Rate - Afr Amer 36 mL/min (>60); Estimated Creatinine Clearance 22.33 ml/min; Glucose 101 mg/dL (74-106); Potassium 3.9 mmol/L (3.5-5.1); Sodium Level 142 mmol/L (136-145)
[2017-08-20 20:29] LABS: Bacteria 0 SEEN /hpf (None Seen); Mucous, Urine 0 SEEN /hpf (<or=2+); Red Blood Cells-Urine 0 SEEN /hpf (0-5); Squamous Epithelial Cells - UA 0 SEEN /hpf (5-10); White Blood Cells 0 SEEN /hpf (0-5)
[2017-08-20 20:39] LABS: Color, Urine Yellow (Yellow); Glucose, Dipstick Normal (Normal); Ketone-Dipstick Negative (Negative); Leukocyte Esterase-Dipstick Negative /ul (Negative); Nitrite-Dipstick Negative (Negative); Occult Blood-Urine Negative /ul (Negative); Protein-Dipstick Negative (Negative); Urine Bilirubin Dipstick Negative (Negative); Urine Clarity Clear (Clear); Urine Urobilinogen Normal (Normal)
[2017-08-20 20:54] LABS: Hyaline Cast 0-5 SEEN /lpf (0-5)
[2017-08-20 22:13] VITALS: BP 108/55; PULSE 55; RESP 18; O2SAT 99
--- NOTE | 2017-08-20 22:23 | ED.VISSUMM ---
- ER Visit Summary Date of Service: 08/20/17 Chief Complaint: Low blood pressure and heart rate History of Present Illness: The patient is a [address] Carbajal and Dr. Alba. Daughter reports that this morning her blood pressure is 187/106. She took her dose of Coreg, but currently is not on losartan. She reports that approximately 130 this afternoon her blood pressure was 90/45 and her heart rate was in the 50s. She reports that at 5:00 this afternoon the patient was slumped in the chair. She took her pulse ox and was 75. She put on 2-3 L nasal cannula which is her home O2 that she uses as needed and her pulse ox increased in the 90s. Daughter reports that she has not needed this for months. Patient denies any fever, chills, chest pain. She reports that she has a cough that is chronic and unchanged. She denies any abdominal pain, nausea, vomiting, or diarrhea. No dysuria or frequency. She does complain of a headache is 7-10 severity. She has a history of similar headache months ago. She also complains of generalized weakness. Physical Examination: Vitals: 97.9, 108/55, 52, 18, 90% on 2 L nasal cannula.. General: Well-nourished and well-developed. Head: Normocephalic atraumatic. Neck: Supple, no lymphadenopathy. No JVD. Nontender. Cardiovascular: Regular rate and rhythm. 2 out of 6 systolic murmur. Respiratory: No respiratory distress. Clear to auscultation bilaterally. Abdominal: Soft, nontender, nondistended, normal bowel sounds. No guarding, rebound, or peritoneal signs. Back: Nontender. Extremities: Nontender, 1+ pitting edema on the right. Skin: Normal color, no rash. Neurologic: Alert and oriented ?3. Cranial nerves II through XII are intact. Normal strength and sensation. Psych: Normal affect. Test Results: EKG is sinus bradycardia 54 with no acute changes. Is unchanged from May 26, 2017. Troponin is negative. UA is normal. Chem-7 is more for CO2 33, BUN 35, creatinine 1.74. Lactic acid is 1.4. CBC is marked for an H&H 7.1 34.4, 7 neutrophils 70, lymphocytes of 13. Chest x-ray shows no acute disease. CT brain shows no acute disease. Sinusitis mildly improved from last CT May 27, 2017. Emergency Department Course and Treatment: Patient is given dose of [place] for her headache. She is given Zofran IV and is resting comfortably. Treatment Plan: This time I do not have an explanation for the patient's symptoms. She has an appointment to see Dr. Alba in 4 days. She is instructed to keep this appointment. Follow-up with her primary care physician in 1-2 days if not improving. Return to the emergency department for any worsening symptoms. Disposition: To home in improved and stable condition. Impression: 1. Sinus bradycardia. 2. Renal insufficiency. This note was generated with [employer] dictation software. It may contain incorrect words, spelling, and punctuation that were not noted in review of the chart prior to signing ED Disposition - Plan for ED Patient: Disposition: Home or Assisted Living Chief Complaint: Fatigue Instructions: ED Weakness [facility] Referrals: Javed Carbajal DO [Primary Care Provider] - 3-5 Days if not improving
[2017-08-20 22:30] VITALS: BP 108/55; PULSE 52; RESP 18; O2SAT 98
== END 2017-08-20 22:30 | disposition home or self-care (01) ==
PROVIDERS: Emergency Provider Emergency Medicine; Family Provider Family Medicine; PCP Family Medicine
DX: R00.1 Bradycardia, unspecified (principal); N28.9 Disorder of kidney and ureter, unspecified; R51 Headache; R01.1 Cardiac murmur, unspecified; R19.7 Diarrhea, unspecified; I25.10 Atherosclerotic heart disease of native coronary artery without angina pectoris; I11.0 Hypertensive heart disease with heart failure; I50.9 Heart failure, unspecified; E78.00 Pure hypercholesterolemia, unspecified; E03.9 Hypothyroidism, unspecified; M54.2 Cervicalgia; G89.29 Other chronic pain; Z79.899 Other long term (current) drug therapy
CPT/HCPCS: 70450; 71045; 80048; 81001; 83605; 84484; 85025; 93005; 96361; 96374; 99285; J7030; J7040; A4216; J2405

== ENCOUNTER 2017-08-24 09:34 | Inpatient (IN) | payer MEDICARE, OTHER, SELFPAY ==
[2017-08-24] VITALS (9 sets, daily range): BP systolic 88–130; BP diastolic 51–85; PULSE 47–100; RESP 13–18; TEMP 35.2–36.6; O2SAT 89–97; BMI 26.9; BMI 27.1
--- NOTE | 2017-08-24 10:03 | RAD_ITS ---
STUDY: X-RAY CHEST REASON FOR EXAM: Female, 82 years old. Shortness of breath and dyspnea. TECHNIQUE: Single AP portable view of the chest. COMPARISON: Comparison is made with prior study dated August 20, 2017. FINDINGS: EKG electrodes are seen. Mild increased markings at the lung bases suggestive of bibasilar atelectasis superimposed on chronic scarring. There is blunting of the left costophrenic angle. There is mild cardiac enlargement. Normal mediastinum and crescencio. Normal visualized pulmonary arteries. There is atherosclerotic calcification of the aortic arch with tortuosity. There are diffuse degenerative changes of the visualized thoracic spine. Normal visualized ribs, clavicles, and shoulders. There is no demonstrated abnormality of the visualized soft tissue structures of the upper abdomen. RAD/Chest 1 View (Portable) IMPRESSION: Mild degree of bibasilar atelectasis superimposed on basilar scarring. Electronically Signed: David Albarado MD at 10:36 EDT Tel [phone], Service support ,
--- NOTE | 2017-08-24 10:04 | EKG12_ITS ---
Test Reason : WEAKNESS Blood Pressure : / mmHG Vent. Rate : 049 BPM Atrial Rate : 049 BPM P-R Int : 192 ms QRS Dur : 104 ms QT Int : 468 ms P-R-T Axes : 065 043 037 degrees QTc Int : 422 ms Sinus bradycardia Otherwise normal ECG Confirmed by RADHA RIVAS, STEVE ([id number]), technical writer and editor FLYNN PATRICIO ([id number]) on 08/27/2017 1:25:02 PM Referred By: DAVID Confirmed By:STEVE GARCIA MD
--- NOTE | 2017-08-24 10:06 | ED.VISSUMM ---
- ER Visit Summary Date of Service: 08/24/17 Chief Complaint: General weakness History of Present Illness: The patient is a 82 F who presents with generalized weakness and unsteady on her feet. Patient states she feels shaky on her feet. Son states the patient is unable to stand on her own. Patient states her weakness is worse when she attempts to stand and walk. Patient states it is better when she lays flat. Patient denies any chest pain or shortness of breath. Patient denies any nausea or vomiting. Patient denies any fevers or chills. Patient was seen here 4 days ago and had normal labs and a normal CT scan of the brain. Physical Examination: Vital signs are stable. Patient is afebrile. Patient is in no acute distress. Cranial nerves II through XII are intact. Strength is 5/5 bilaterally. There are no sensory deficits noted. Heart was regular rate and rhythm. Lungs are clear and equal bilaterally. There is good respiratory effort noted. Abdomen is soft and nontender. The remaining physical exam is within normal limits. Test Results: EKG showed normal sinus rhythm with a rate of 49. There are no acute ST or T wave changes. This was unchanged compared to previous EKG dated 08/20/2017. CBC shows a mild leukocytosis of 14.4. Hemoglobin was 10.6. Platelets were 129. Creatinine was slightly elevated 1.67. BUN was slightly elevated at 27. Emergency Department Course and Treatment: Patient was given IV fluids here. Patient's blood pressure improved to 94 systolic. Case was discussed with Dr. Rodriguez. He will admit the patient to his service. Disposition: Admit to hospital Impression: Generalized weakness This note was generated with [employer] dictation software. It may contain incorrect words, spelling, and punctuation that were not noted in review of the chart prior to signing ED Disposition - Plan for ED Patient: Disposition: Acute Care Hospital [facility] Chief Complaint: Weakness Diagnosis: Generalized weakness Referrals: Javed Carbajal DO [Primary Care Provider] -
[2017-08-24 10:42] LABS: Absolute Lymphocyte Count 1.03 X10^3/ul (0.83-4.51); Absolute Neutrophil Count 12.2 X10^3/uL (2.0-7.7); Basophil# 0.01 X10^3/uL; Basophil% 0.1 % (0-1); Eosinophil# 0.08 X10^3/uL; Eosinophils% 0.6 % (0-5); Hematocrit 33.4 % (37-47); Hemoglobin 10.6 g/dl (12.0-15.0); Lymphocyte # 1.03 X10^3/ul (4.0); Lymphocyte % 7.2 % (19-41); Mean Corp Hgb Conc 31.7 g/gl (32-36); Mean Corpuscular Hgb 29.1 pg (27.0-32.0); Mean Corpuscular Volume 91.8 fL (81-99); Mean Platelet Vol. 10.4 fl (6.2-12.0); Neutrophil # 12.22 X10^3/uL (2.7-7.7); POSITIVE COUNT NO; POSITIVE DIFFERENTIAL NO; POSITIVE MORPHOLOGY NO; Platelet Count 129 K/mm3 (150-450); RBC Distribution Width CV 15.4 % (11.6-14.6); RBC Distribution Width SD 51.9 fl (35.1-43.9); Red Blood Count 3.64 M/mm3 (4.2-5.4); White Blood Count 14.4 K/mm3 (4.4-11.0)
[2017-08-24 11:01] LABS: ALB/GLOB Ratio 0.8 RATIO (0.9-2.4); AST(SGOT) 26 U/L (15-37); Alanine Aminotransfer ALT/SGPT 21 U/L (13-56); Albumin, Serum 2.9 g/dL (3.2-5.0); Alkaline Phosphatase 134 U/L (45-117); Anion Gap 8 (5-15); BUN 27 mg/dL (7-18); BUN/Creat Ratio 16.2 RATIO (10-20); Calcium,Total 8.9 mg/dL (8.5-10.1); Chloride 96 mmol/L (98-107); Creatinine, Serum 1.67 mg/dL (0.55-1.02); EST Glomerular Filtration Rate 31 mL/min (>60); Est Glom Filt Rate - Afr Amer 38 mL/min (>60); Globulin 3.8 g/dL (2.2-4.2); Glucose 87 mg/dL (74-106); Protein, Total 6.7 g/dL (6.4-8.2); Sodium Level 138 mmol/L (136-145)
--- NOTE | 2017-08-24 11:37 | CM.ED ---
Social Work Note Into complete initial assessment as pt is targeted for admission. Pt is accompanied by her son, Nahun. Introduced self and role at [facility]. Pt reports to live with her son and daughter in law in a one-story home. DME consists of a walker, cane, shower chair, grab bars and oxygen ([employer]). According to the son the pt is independent with her self-care. Per Nahun the pt has intermittent weakness where she cannot stand and his alone cannot manage her. Refuses placement as an option at discharge. Educate to HHC and private aide services. Nahun states that the pt was here in January and they had HHC, but they only checked vitals and he did not feel that it was helpful. Educate to Medicaid and PASSPORT services. Nahun agreeable to complete application to see if they are eligible. Provided with Medicaid application and made aware that SW was available if questions/needs arose. Confirms that the pt's PCP is Dr. Alba and she also sees Dr. Odom. Preferred pharmacy is [facility] in [place]. States that they do have an established HCPOA, but no code status and would like to have this done. Educate that his is a physician's order and Nahun states they will do it with the PCP or a hospitalist if the pt is admitted. Declines to request that the ED physician do this due to the volume of pt's in ED at this time. RN CM on assigned unit to follow for discharge planning needs. Yina Strickland, BINGO MANAGER, JINRIKISHA DRIVER
[2017-08-24 12:02] LABS: Bacteria 0 SEEN /hpf (None Seen); Mucous, Urine 0 SEEN /hpf (<or=2+); Red Blood Cells-Urine 0 SEEN /hpf (0-5)
[2017-08-24 12:05] LABS: Color, Urine Yellow (Yellow); Glucose, Dipstick Normal (Normal); Ketone-Dipstick Negative (Negative); Leukocyte Esterase-Dipstick 25 /ul (Negative); Nitrite-Dipstick Negative (Negative); Occult Blood-Urine Negative /ul (Negative); Protein-Dipstick Negative (Negative); Specific Gravity, Urine 1.005 (1.002-1.030); Urine Bilirubin Dipstick Negative (Negative); Urine Clarity Sl. Cloudy (Clear); Urine Urobilinogen Normal (Normal)
[2017-08-24 12:12] LABS: Squamous Epithelial Cells - UA 0-5 SEEN /hpf (5-10); White Blood Cells 0-5 SEEN /hpf (0-5)
[2017-08-24] MEDS: 0.9% Normal Saline 1,000 ML 1000 ML IV (12:36)
--- NOTE | 2017-08-24 13:17 | ED.RN ---
PT'S SPO2 WAS DROPPING INTO THE UPPER 80'S, PT PLACED ON 2 LITERS O2 BY NASAL CANNULA
--- NOTE | 2017-08-24 13:25 | NURSING ---
[facility] GENERALIZED WEAKNESS JACK
[2017-08-24] MEDS: Acetaminophen 325 MG Tablet 650 MG PO ×2 (13:46→19:24)
--- NOTE | 2017-08-24 14:35 | PCM.HP.STD ---
Problem List (1) Aspiration pneumonia Status: Acute (2) TOMMIE (acute kidney injury) Status: Acute (3) Failure to thrive Status: Acute History of Present Illness Date of Admission: 08/24/17 Chief Complaint: fall. shaking. The patient is a 82 year old F who presents with increased weakness today. Patient was just very shaky when trying to get up and even using her walker. This is not normal and so the patient was brought to the hospital. Patient had chest x-ray that showed some questionable atelectasis right lower lobe. Patient creatinine 1.67. History is obtained to the emergency room physician family is at bedside. Patient is confused and unable to provide any history. In the emergency room, patient received saline plus Tylenol. [] Past Medical History Past Medical History (Chronic Problems): Chronic Problems (Last Reviewed 08/23/17 @ 14:49 by Trish Feliciano) GERD (gastroesophageal reflux disease) (Chronic) History of hypertension (Chronic) History of coronary artery stent placement (Chronic 05/05/11) [facility] to [facility] 05/05/2011, [facility] per Dr. Cain Gayle Atherosclerotic heart disease of [place] coronary artery without angina pectoris (Chronic) [facility] 05/05/2011, [facility] per Dr. Cain Gayle Supraventricular tachycardia (Chronic) Paroxysmal atrial tachycardia (Chronic) Non-rheumatic tricuspid valve insufficiency (Chronic) 2+ per echo 03/30/2014 Secondary pulmonary arterial hypertension (Chronic) RVSP 43 mmhg per echo 03/30/2014 Hyperlipidemia (Chronic) Chronic ulcer of back (Chronic) Hypothyroidism (Chronic) Essential (primary) hypertension (Chronic) Medical History: Medical History (Last Updated 08/24/17 @ 14:37 by Walter Rodriguez DO) GERD (gastroesophageal reflux disease) (Chronic) K21.9 History of hypertension (Chronic) Z86.79 Atherosclerotic heart disease of [place] coronary artery without angina pectoris (Chronic) I25.10 [facility] to [facility] 05/05/2011, [facility] per Dr. Cain Gayle Supraventricular tachycardia (Chronic) I47.1 Paroxysmal atrial tachycardia (Chronic) I47.1 Non-rheumatic tricuspid valve insufficiency (Chronic) I36.1 2+ per echo 03/30/2014 Secondary pulmonary arterial hypertension (Chronic) I27.21 RVSP 43 mmhg per echo 03/30/2014 Hypotension (Acute) I95.9 Bradycardia (Acute) R00.1 Hyperlipidemia (Chronic) E78.5 Chronic ulcer of back (Chronic) L98.429 Hypothyroidism (Chronic) E03.9 Essential (primary) hypertension (Chronic) I10 Acute cystitis (Acute) N30.00 Anxiety F41.9 CKD (chronic kidney disease), stage III N18.3 Dysphagia R13.10 Protein malnutrition E46 TOMMIE (acute kidney injury) N17.9 Allergies alprazolam [From Xanax] Allergy (Verified 08/24/17 09:38) Other Sulfa (Sulfonamide Antibiotics) Allergy (Verified 08/24/17 09:38) Vomiting cigarette smoke Adverse Reaction (Intermediate, Verified 08/24/17 09:38) cough Home Medications: Ambulatory Orders Medication Instructions Recorded Budesonide/Formoterol 160/4.5 2 puff INHALATION BID PRN 06/01/13 [Symbicort 160/4.5 Mcg Inhaler (SP)] Gabapentin [Neurontin] 400 mg PO TID 06/01/13 Pantoprazole Sodium [Protonix] 40 mg PO BID 06/01/13 Murine Dry Eyes 2 drp EACH EYE TID PRN PRN 01/26/17 Acetaminophen [Tylenol Tablet] 650 mg PO Q6H PRN PRN tab 01/28/17 Albuterol IH (ProAir) [Proair Hfa 2 puff INHALATION Q4H PRN PRN 05/26/17 (SP)Vent Pts] Buspirone HCl 7.5 mg PO BID PRN 05/26/17 Cyanocobalamin/Cobamamide [Vitamin 1 ea SL DAILY 05/26/17 B-12 5,000 Mcg Tab Sl] Fluticasone 0.05% [Flonase Nasal 2 spray NASAL BID PRN 05/26/17 [place]] Furosemide [Lasix] 20 mg PO DAILY 05/26/17 Ondansetron HCl [Zofran] 4 mg PO Q4H PRN PRN 05/26/17 Alendronate Sodium [Fosamax] 70 mg PO QWEEK 08/20/17 Carvedilol [Coreg] 6.25 mg PO BID 08/20/17 Levothyroxine [Synthroid] 75 mcg PO DAILY 08/20/17 pravastatin 10 mg tablet 10 mg PO QDAY 08/23/17 Losartan Potassium mg PO DAILY PRN 08/24/17 Surgical History: Surgical History (Last Reviewed 08/24/17 @ 14:37 by Walter Rodriguez DO) History of coronary artery stent placement (Chronic) Onset Date: 05/05/11 Z95.5 [facility] 05/05/2011, [facility] per Dr. Cain Gayle History of colectomy Onset Date: ~2003 Z90.49 History of colonoscopy Onset Date: ~11/2003 Z98.890 History of esophagogastroduodenoscopy (EGD) Onset Date: ~2012 Z98.890 History of laparotomy Onset Date: ~06/2003 Z98.890 History of ventral hernia repair Onset Date: ~04/2011 Z98.890, Z87.19 Psychiatric History: Anxiety Lives: With Family Smoking Status: Never smoker Tobacco Use: Non-smoker Alcohol: None Drugs: None - *Family History Paternal Family History: Family History (Last Reviewed 08/24/17 @ 14:38 by Walter Rodriguez DO) Mother CVA (cerebral vascular accident) Sister CVA (cerebral vascular accident) CAD (coronary artery disease) History Items: No pertinent history Review of Systems Constitutional: Denies: Chills, Fever Respiratory: Reports: Shortness of Breath Psychiatric: Reports: Anxiety Comment: Limited ROS given the patient's confusion. VTE Information - Inpt Only VTE Present on Admission: No VTE Pharm Prophylaxis ordered?: Yes Patient Problems: Active and Suspected Problems (Last Reviewed 08/23/17 @ 14:49 by Trish Feliciano) Generalized weakness (Acute) Aspiration pneumonia (Acute) TOMMIE (acute kidney injury) (Acute) Failure to thrive (Acute) - Physical Exam General: Confused, - - Confused. Patient 1 was just very tremulous and incoherently. Verbal reorientation was attempted but patient did not respond. I did do a very brief sternal rub and the patient snapped out of it and then quickly apologized. Patient later did it again but with my asking her question she responded to that. HEENT: Atraumatic, Normocephalic Oral: Moist Mucosa, No Gingival or Mucosal Lesions/ Ulcerations Neck: No Nodes, Thyroid Normal Size and Texture Lungs: No rhonchi, No wheeze, Diminished Cardiovascular: Regular rate, Regular Rhythm, Normal S1, Normal S2, No murmurs Abdomen: Bowel Sounds Present, Soft, Non Tender, Non-Distended Extremities: No edema, No Calf Tenderness Skin: No rashes, No breakdown Musculoskeletal: Cachexia, Muscle Wasting Neurological: Cranial nerves II-XII grossly intact, Motor Exam 5/5 strength throughout, Muscle tone normal Psych/Mental Status: Anxious Vital Signs Temp Pulse Resp BP Pulse Ox 36.6 C 63 14 98/85 H 97 08/24/17 09:35 08/24/17 13:17 08/24/17 13:17 08/24/17 13:17 08/24/17 13:17 Oxygen Flow Rate (L/min) 2 Oxygen Delivery Method Nasal Cannula Weight: 54.431 kg Body Mass Index (BMI) 26.9 Laboratory Tests Past 24 Hrs 08/24/17 08/24/17 08/24/17 10:20 10:20 11:55 WBC 14.4 H RBC 3.64 L Hgb 10.6 L Hct 33.4 L MCV 91.8 MCH 29.1 MCHC 31.7 L RDW 15.4 H RDW Differential 51.9 H Plt Count 129 L MPV 10.4 Immature Gran % (Auto) 0.100 Neut % (Auto) 85.0 H Lymph % (Auto) 7.2 L [place] % (Auto) 7.0 Eos % (Auto) 0.6 Baso % (Auto) 0.1 Absolute Neuts (auto) 12.2 H Absolute Lymphs (auto) 1.03 Total Counted Not Reportable Sodium 138 Potassium 4.0 Chloride 96 L Carbon Dioxide 34.0 H Anion Gap 8 BUN 27 H Creatinine 1.67 H Estim Creat Clear Calc 22.70 Est GFR (MDRD) Af Amer 38 L Est GFR (MDRD) Non-Af 31 L BUN/Creatinine Ratio 16.2 Glucose 87 Calcium 8.9 Total Bilirubin 0.80 AST 26 ALT 21 Alkaline Phosphatase 134 H Troponin I < 0.015 Total Protein 6.7 Albumin 2.9 L Globulin 3.8 Albumin/Globulin Ratio 0.8 L Urine Color Yellow Urine Clarity Sl. Cloudy Urine pH 5.0 Ur Specific [place] 1.005 Urine Protein Negative Urine Glucose (UA) Normal Urine Ketones Negative Urine Occult Blood Negative Urine Nitrite Negative Urine Bilirubin Negative Urine Urobilinogen Normal Ur Leukocyte Esterase 25 H Urine RBC 0 SEEN Urine WBC 0-5 SEEN Ur Squamous Epith Cells 0-5 SEEN Urine Bacteria 0 SEEN Urine Mucus 0 SEEN EKG reviewed and showed normal sinus rhythm with some LVH. Chest x-ray reviewed and shows some right lower infiltrate versus atelectasis. Assessment/Plan All Active Problems (Last Reviewed 08/23/17 @ 14:49 by Trish Feliciano) Generalized weakness (Acute) Aspiration pneumonia (Acute) TOMMIE (acute kidney injury) (Acute) Failure to thrive (Acute) Hypotension (Acute) Bradycardia (Acute) TOMMIE (acute kidney injury) (Acute) Acute cystitis (Acute) 1. Suspected aspiration pneumonia Patient has a diagnosis of dysphagia which she seen speech therapy and undergone out of 5 barium swallows. Unfortunately, the patient does not follow a strict diet. Will put the patient on Unasyn with pulmonary toilet Check urinary antigens for Streptococcus and Legionella. 2. Acute kidney injury Presumed Creatinine is 1.67 but looking back and July 07 it was 1.19. Patient earlier this month was 1.74. Additional IV fluids and reassess. Hold Lasix 3. Failure to thrive Patient has is very weak overall and not a very good performance status at baseline. This is certainly exacerbated by what may be some dehydration and pneumonia. I am concerned that there may be something else to the patient's clinical picture that has not been fully elucidated, in particular, I am concerned about a movement disorder such as Parkinson's plus such as MSA versus PSP. Patient is an established with Dr. Ellis and I have recommended that she follow-up with him. She did have an MRI performed on July 07 to evaluate for stroke which was negative for stroke but that was actually never reviewed with Dr. Ellis. I encouraged him to follow-up with him in is to what I am concerned about his neurodegenerative process as mentioned above. Most. Concerned about that because of her chronic dysphagia that has not been diagnosed what the etiology of that is. Certainly could be inherent that she may just have weakness of her swallowing but I be concerned about Brown neurologic process contributing to that. PT OT evaluate and treat 4. Anxiety Patient was witnessed just shaking and just snap out of it. Certainly not a seizure. Patient does have an underlying anxiety disorder. Would not add any additional medications particularly no benzodiazepines at this time. 5. Dysphagia Patient was not following a modified diet at home. Unclear what she actually needs. We will consult speech therapy for further evaluation. See above for further details 6. Protein malnutrition Patient is very gaunt and thin. We will check a prealbumin. Consult nutrition. 7. DVT prophylaxis with Lovenox Code Visit Inpatient E&M: 95910 Init Hosp L3
--- NOTE | 2017-08-24 14:46 | HP.PCM_ITS ---
Problem List (1) Aspiration pneumonia Status: Acute (2) TOMMIE (acute kidney injury) Status: Acute (3) Failure to thrive Status: Acute History of Present Illness Date of Admission: 08/24/17 Chief Complaint: fall. shaking. The patient is a 82 year old F who presents with increased weakness today. Patient was just very shaky when trying to get up and even using her walker. This is not normal and so the patient was brought to the hospital. Patient had chest x-ray that showed some questionable atelectasis right lower lobe. Patient creatinine 1.67. History is obtained to the emergency room physician family is at bedside. Patient is confused and unable to provide any history. In the emergency room, patient received saline plus Tylenol. [] Past Medical History Past Medical History (Chronic Problems): Chronic Problems (Last Reviewed 08/23/17 @ 14:49 by Trish Feliciano) GERD (gastroesophageal reflux disease) (Chronic) History of hypertension (Chronic) History of coronary artery stent placement (Chronic 05/05/11) [facility] to [facility] 05/05/2011, [facility] per Dr. Cain Gayle Atherosclerotic heart disease of [place] coronary artery without angina pectoris (Chronic) [facility] 05/05/2011, [facility] per Dr. Cain Gayle Supraventricular tachycardia (Chronic) Paroxysmal atrial tachycardia (Chronic) Non-rheumatic tricuspid valve insufficiency (Chronic) 2+ per echo 03/30/2014 Secondary pulmonary arterial hypertension (Chronic) RVSP 43 mmhg per echo 03/30/2014 Hyperlipidemia (Chronic) Chronic ulcer of back (Chronic) Hypothyroidism (Chronic) Essential (primary) hypertension (Chronic) Medical History: Medical History (Last Updated 08/24/17 @ 14:37 by Walter Rodriguez DO) GERD (gastroesophageal reflux disease) (Chronic) K21.9 History of hypertension (Chronic) Z86.79 Atherosclerotic heart disease of [place] coronary artery without angina pectoris (Chronic) I25.10 [facility] to [facility] 05/05/2011, [facility] per Dr. Cain Gayle Supraventricular tachycardia (Chronic) I47.1 Paroxysmal atrial tachycardia (Chronic) I47.1 Non-rheumatic tricuspid valve insufficiency (Chronic) I36.1 2+ per echo 03/30/2014 Secondary pulmonary arterial hypertension (Chronic) I27.21 RVSP 43 mmhg per echo 03/30/2014 Hypotension (Acute) I95.9 Bradycardia (Acute) R00.1 Hyperlipidemia (Chronic) E78.5 Chronic ulcer of back (Chronic) L98.429 Hypothyroidism (Chronic) E03.9 Essential (primary) hypertension (Chronic) I10 Acute cystitis (Acute) N30.00 Anxiety F41.9 CKD (chronic kidney disease), stage III N18.3 Dysphagia R13.10 Protein malnutrition E46 TOMMIE (acute kidney injury) N17.9 Allergies alprazolam [From Xanax] Allergy (Verified 08/24/17 09:38) Other Sulfa (Sulfonamide Antibiotics) Allergy (Verified 08/24/17 09:38) Vomiting cigarette smoke Adverse Reaction (Intermediate, Verified 08/24/17 09:38) cough Home Medications: Ambulatory Orders Medication Instructions Recorded Budesonide/Formoterol 160/4.5 2 puff INHALATION BID PRN 06/01/13 [Symbicort 160/4.5 Mcg Inhaler (SP)] Gabapentin [Neurontin] 400 mg PO TID 06/01/13 Pantoprazole Sodium [Protonix] 40 mg PO BID 06/01/13 Murine Dry Eyes 2 drp EACH EYE TID PRN PRN 01/26/17 Acetaminophen [Tylenol Tablet] 650 mg PO Q6H PRN PRN tab 01/28/17 Albuterol IH (ProAir) [Proair Hfa 2 puff INHALATION Q4H PRN PRN 05/26/17 (SP)Vent Pts] Buspirone HCl 7.5 mg PO BID PRN 05/26/17 Cyanocobalamin/Cobamamide [Vitamin 1 ea SL DAILY 05/26/17 B-12 5,000 Mcg Tab Sl] Fluticasone 0.05% [Flonase Nasal 2 spray NASAL BID PRN 05/26/17 [place]] Furosemide [Lasix] 20 mg PO DAILY 05/26/17 Ondansetron HCl [Zofran] 4 mg PO Q4H PRN PRN 05/26/17 Alendronate Sodium [Fosamax] 70 mg PO QWEEK 08/20/17 Carvedilol [Coreg] 6.25 mg PO BID 08/20/17 Levothyroxine [Synthroid] 75 mcg PO DAILY 08/20/17 pravastatin 10 mg tablet 10 mg PO QDAY 08/23/17 Losartan Potassium mg PO DAILY PRN 08/24/17 Surgical History: Surgical History (Last Reviewed 08/24/17 @ 14:37 by Walter Rodriguez DO) History of coronary artery stent placement (Chronic) Onset Date: 05/05/11 Z95.5 [facility] 05/05/2011, [facility] per Dr. Cain Gayle History of colectomy Onset Date: ~2003 Z90.49 History of colonoscopy Onset Date: ~11/2003 Z98.890 History of esophagogastroduodenoscopy (EGD) Onset Date: ~2012 Z98.890 History of laparotomy Onset Date: ~06/2003 Z98.890 History of ventral hernia repair Onset Date: ~04/2011 Z98.890, Z87.19 Psychiatric History: Anxiety Lives: With Family Smoking Status: Never smoker Tobacco Use: Non-smoker Alcohol: None Drugs: None - *Family History Paternal Family History: Family History (Last Reviewed 08/24/17 @ 14:38 by Walter Rodriguez DO) Mother CVA (cerebral vascular accident) Sister CVA (cerebral vascular accident) CAD (coronary artery disease) History Items: No pertinent history Review of Systems Constitutional: Denies: Chills, Fever Respiratory: Reports: Shortness of Breath Psychiatric: Reports: Anxiety Comment: Limited ROS given the patient's confusion. VTE Information - Inpt Only VTE Present on Admission: No VTE Pharm Prophylaxis ordered?: Yes Patient Problems: Active and Suspected Problems (Last Reviewed 08/23/17 @ 14:49 by Trish Feliciano) Generalized weakness (Acute) Aspiration pneumonia (Acute) TOMMIE (acute kidney injury) (Acute) Failure to thrive (Acute) - Physical Exam General: Confused, - - Confused. Patient 1 was just very tremulous and incoherently. Verbal reorientation was attempted but patient did not respond. I did do a very brief sternal rub and the patient snapped out of it and then quickly apologized. Patient later did it again but with my asking her question she responded to that. HEENT: Atraumatic, Normocephalic Oral: Moist Mucosa, No Gingival or Mucosal Lesions/ Ulcerations Neck: No Nodes, Thyroid Normal Size and Texture Lungs: No rhonchi, No wheeze, Diminished Cardiovascular: Regular rate, Regular Rhythm, Normal S1, Normal S2, No murmurs Abdomen: Bowel Sounds Present, Soft, Non Tender, Non-Distended Extremities: No edema, No Calf Tenderness Skin: No rashes, No breakdown Musculoskeletal: Cachexia, Muscle Wasting Neurological: Cranial nerves II-XII grossly intact, Motor Exam 5/5 strength throughout, Muscle tone normal Psych/Mental Status: Anxious Vital Signs Temp Pulse Resp BP Pulse Ox 36.6 C 63 14 98/85 H 97 08/24/17 09:35 08/24/17 13:17 08/24/17 13:17 08/24/17 13:17 08/24/17 13:17 Oxygen Flow Rate (L/min) 2 Oxygen Delivery Method Nasal Cannula Weight: 54.431 kg Body Mass Index (BMI) 26.9 Laboratory Tests Past 24 Hrs 08/24/17 08/24/17 08/24/17 10:20 10:20 11:55 WBC 14.4 H RBC 3.64 L Hgb 10.6 L Hct 33.4 L MCV 91.8 MCH 29.1 MCHC 31.7 L RDW 15.4 H RDW Differential 51.9 H Plt Count 129 L MPV 10.4 Immature Gran % (Auto) 0.100 Neut % (Auto) 85.0 H Lymph % (Auto) 7.2 L [place] % (Auto) 7.0 Eos % (Auto) 0.6 Baso % (Auto) 0.1 Absolute Neuts (auto) 12.2 H Absolute Lymphs (auto) 1.03 Total Counted Not Reportable Sodium 138 Potassium 4.0 Chloride 96 L Carbon Dioxide 34.0 H Anion Gap 8 BUN 27 H Creatinine 1.67 H Estim Creat Clear Calc 22.70 Est GFR (MDRD) Af Amer 38 L Est GFR (MDRD) Non-Af 31 L BUN/Creatinine Ratio 16.2 Glucose 87 Calcium 8.9 Total Bilirubin 0.80 AST 26 ALT 21 Alkaline Phosphatase 134 H Troponin I < 0.015 Total Protein 6.7 Albumin 2.9 L Globulin 3.8 Albumin/Globulin Ratio 0.8 L Urine Color Yellow Urine Clarity Sl. Cloudy Urine pH 5.0 Ur Specific [place] 1.005 Urine Protein Negative Urine Glucose (UA) Normal Urine Ketones Negative Urine Occult Blood Negative Urine Nitrite Negative Urine Bilirubin Negative Urine Urobilinogen Normal Ur Leukocyte Esterase 25 H Urine RBC 0 SEEN Urine WBC 0-5 SEEN Ur Squamous Epith Cells 0-5 SEEN Urine Bacteria 0 SEEN Urine Mucus 0 SEEN EKG reviewed and showed normal sinus rhythm with some LVH. Chest x-ray reviewed and shows some right lower infiltrate versus atelectasis. Assessment/Plan All Active Problems (Last Reviewed 08/23/17 @ 14:49 by Trish Feliciano) Generalized weakness (Acute) Aspiration pneumonia (Acute) TOMMIE (acute kidney injury) (Acute) Failure to thrive (Acute) Hypotension (Acute) Bradycardia (Acute) TOMMIE (acute kidney injury) (Acute) Acute cystitis (Acute) 1. Suspected aspiration pneumonia * Patient has a diagnosis of dysphagia which she seen speech therapy and undergone out of 5 barium swallows. Unfortunately, the patient does not follow a strict diet. * Will put the patient on Unasyn with pulmonary toilet * Check urinary antigens for Streptococcus and Legionella. 2. Acute kidney injury * Presumed * Creatinine is 1.67 but looking back and July 07 it was 1.19. Patient earlier this month was 1.74. * Additional IV fluids and reassess. * Hold Lasix 3. Failure to thrive * Patient has is very weak overall and not a very good performance status at baseline. * This is certainly exacerbated by what may be some dehydration and pneumonia. * I am concerned that there may be something else to the patient's clinical picture that has not been fully elucidated, in particular, I am concerned about a movement disorder such as Parkinson's plus such as MSA versus PSP. * Patient is an established with Dr. Ellis and I have recommended that she follow-up with him. She did have an MRI performed on July 07 to evaluate for stroke which was negative for stroke but that was actually never reviewed with Dr. Ellis. I encouraged him to follow-up with him in is to what I am concerned about his neurodegenerative process as mentioned above. Most. Concerned about that because of her chronic dysphagia that has not been diagnosed what the etiology of that is. Certainly could be inherent that she may just have weakness of her swallowing but I be concerned about Brown neurologic process contributing to that. * PT OT evaluate and treat 4. Anxiety * Patient was witnessed just shaking and just snap out of it. Certainly not a seizure. Patient does have an underlying anxiety disorder. Would not add any additional medications particularly no benzodiazepines at this time. 5. Dysphagia * Patient was not following a modified diet at home. Unclear what she actually needs. We will consult speech therapy for further evaluation. * See above for further details 6. Protein malnutrition * Patient is very gaunt and thin. We will check a prealbumin. Consult nutrition. 7. DVT prophylaxis with Lovenox Code Visit Inpatient E&M: 59824 Init Hosp L3
[2017-08-24] MEDS: Ipratropium/Albuterol Sulfate 3 ML AMPUL.NEB INHALATION (18:49)
[2017-08-24] MEDS: Budesonide Respules 0.5 MG/2 ML AMPUL.NEB. INHALATION (18:49)
[2017-08-24 19:03] LABS: Prealbumin 22.1 mg/dL (20.0-40.0)
[2017-08-24] MEDS: SUMAtriptan 6 MG/0.5 ML Vial SC (20:40)
[2017-08-24] MEDS: Pantoprazole Sodium 40 MG Tablet PO (20:55)
[2017-08-24] MEDS: Carvedilol 3.125 MG TABLET PO (20:56)
[2017-08-24] MEDS: guaiFENesin 1,200 MG Tablet 1200 MG PO (20:56)
[2017-08-24] MEDS: Pravastatin 20 MG Tablet 10 MG PO (20:56)
[2017-08-24] MEDS: 0.9% Normal Saline 1,000 ML 125 ML IV (21:38)
[2017-08-25] VITALS (9 sets, daily range): BP systolic 104–145; BP diastolic 49–78; PULSE 65–90; RESP 13–20; TEMP 36.3–37; O2SAT 92–98
[2017-08-25] MEDS: oxyCODONE 5 MG Tablet PO ×3 (00:05→18:22)
[2017-08-25] MEDS: Acetaminophen 325 MG Tablet 650 MG PO ×3 (01:28→20:17)
[2017-08-25] MEDS: Levothyroxine 50 MCG Tablet PO (04:52)
[2017-08-25] MEDS: Ipratropium/Albuterol Sulfate 3 ML AMPUL.NEB INHALATION ×4 (06:52→23:29)
[2017-08-25] MEDS: Budesonide Respules 0.5 MG/2 ML AMPUL.NEB. INHALATION ×2 (06:52→18:51)
--- NOTE | 2017-08-25 07:13 | PCM.PN.HOSP ---
Patient Problems: Active and Suspected Problems (Last Updated 08/24/17 @ 14:37 by Walter Rodriguez DO) Generalized weakness (Acute) Aspiration pneumonia (Acute) TOMMIE (acute kidney injury) (Acute) Failure to thrive (Acute) Subjective: Patient with no acute events overnight per self and per nursing report. Only complaint is bilateral dry eye. She notes that breathing has improved since presentation. She denies any coughing. Patient denies fevers, chills, nausea, emesis, abdominal pain, chest pain. Objective: Physical Examination: General: awake, alert, oriented to self, place and recent events, markedly more alert from initial examination, cooperative, seated upright in bed, NAD. Skin: normal color, turgor, no icterus, cyanosis. HEENT: AT/NC, EOMI, PERRLA, MMM. Lungs: Diminished BS BL, > bases, moderate effort, no rales, ronchi or wheezing. Heart: Regular rate and rhythm; no gallop, rub audible. Abdomen: soft, NTTP, ND, normal BS. Extremities: no cyanosis, clubbing, or edema. Neurological: patient awake, alert, oriented as noted, improved; cognitive function appears improved from initial presentation, unclear baseline; pupils equally reactive to light and accomodation; cranial nerves II-XII grossly normal, moving all 4 extremities, strength moderately globally decreased. Psychiatric: affect appears normal, no acute evidence of depressive or anxiety feelings. Vitals/I&O's: Vital Signs Temp Pulse Resp BP Pulse Ox 97.3 F L 73 18 124/78 H 98 08/25/17 03:30 08/25/17 03:30 08/25/17 03:30 08/25/17 03:30 08/25/17 03:30 Oxygen Flow Rate (L/min) 2 Oxygen Delivery Method Nasal Cannula Weight: 120 lb 13.013 oz Body Mass Index (BMI) 27.1 Intake and Output for Last 24 Hours 08/23/17 08/24/17 08/25/17 23:59 23:59 23:59 Intake Total 800 / 800 910 / 910 Balance 800 / 800 910 / 910 Laboratory Results 08/25/17 06:35: WBC Pending, RBC Pending, Hgb Pending, Hct Pending, MCV Pending, MCH Pending, MCHC Pending, RDW Pending, RDW Differential Pending, Plt Count Pending, Neut % (Auto) Pending, Absolute Neuts (auto) Pending, Total Counted Pending 08/25/17 06:35: Sodium Pending, Potassium Pending, Chloride Pending, Carbon Dioxide Pending, Anion Gap Pending, BUN Pending, Creatinine Pending, Est GFR (MDRD) Af Amer Pending, Est GFR (MDRD) Non-Af Pending, BUN/Creatinine Ratio Pending, Glucose Pending, Calcium Pending Current Medications Acetaminophen (Tylenol) 650 mg PO Q6H PRN PRN PRN Reason: Mild Pain (1-3)/Temp > 100.7 F Last Admin: 08/25/17 01:28 Dose: 650 mg Albuterol Sulfate (Ventolin Aerosols) 2.5 mg INHALATION Q2H PRN PRN PRN Reason: SHORTNESS OF BREATH Albuterol/Ipratropium (Duoneb) 3 ml INHALATION Q4H.RT [facility] Last Admin: 08/25/17 06:52 Dose: 3 ml Artificial Tears (Tears Naturale, Artificial Tears) 2 drop EACH EYE TID PRN PRN PRN Reason: DRY EYES Last Admin: 08/25/17 04:53 Dose: 2 drop Budesonide (Pulmicort Aerosol) 0.5 mg INHALATION Q12H.RT [facility] Last Admin: 08/25/17 06:52 Dose: 0.5 mg Buspirone HCl (Buspar) 7.5 mg PO BID PRN PRN PRN Reason: ANXIETY Carvedilol (Coreg) 3.125 mg PO BID [facility] Last Admin: 08/24/17 20:56 Dose: 3.125 mg Enoxaparin Sodium (Lovenox) 30 mg SC DAILY@1000 [facility]JIV Fluticasone Propionate (Flonase Nasal [place]) 2 spray NASAL BID PRN PRN Reason: ALLERGIES Guaifenesin (Mucinex) 1,200 mg PO BID [facility] Last Admin: 08/24/17 20:56 Dose: 1,200 mg Ampicillin Sodium/Sulbactam (Sodium 3 gm/ Sodium Chloride) 112 mls @ 150 mls/hr IV Q12H [facility] Last Admin: 08/25/17 03:34 Dose: 150 mls/hr Sodium Chloride () 250 mls @ 15 mls/hr IV .[id number] PRN PRN Reason: SALINE FLUSH Levothyroxine Sodium (Synthroid) 50 mcg PO DAILY@0600 [facility] Last Admin: 08/25/17 04:52 Dose: 50 mcg Magnesium Hydroxide (Milk Of Magnesia) 30 ml PO DAILY PRN PRN PRN Reason: Constipation Ondansetron HCl (Zofran) 4 mg IV Q8H PRN PRN PRN Reason: NAUSEA Ondansetron HCl (Zofran Odt) 4 mg PO Q4H PRN PRN PRN Reason: NAUSEA/VOMITING Oxycodone HCl (Oxyir) 5 mg PO Q6H PRN PRN PRN Reason: SEVERE PAIN (6-10/10) Last Admin: 08/25/17 00:05 Dose: 5 mg Pantoprazole Sodium (Protonix) 40 mg PO BID [facility] Last Admin: 08/24/17 20:55 Dose: 40 mg Pravastatin Sodium (Pravachol) 10 mg PO QHS [facility] Last Admin: 08/24/17 20:56 Dose: 10 mg Sodium Chloride () 5 - 30 ml IV UD PRN PRN Reason: SALINE FLUSH Medical Necessity - Tobacco Use Smoking Status: Never smoker Tobacco Use: Non-smoker Assessment/Plan All Active Problems (Last Updated 08/24/17 @ 14:37 by Walter Rodriguez DO) Generalized weakness (Acute) Aspiration pneumonia (Acute) TOMMIE (acute kidney injury) (Acute) Failure to thrive (Acute) Hypotension (Acute) Bradycardia (Acute) Acute cystitis (Acute) The patient is an 82 y/o F w/ PMHx: CKD stage III (Baseline Cr 1.3), HTN, HLD, Hypothyroidism, CAD s/p ADINA to RCA 05/05/2011, Hx SVT/PAT, Valvular Heart Disease (NR TVI), Pulmonary HTN (ECHO 03/2014 RVSP 43 mmHg), GERD who presents to the [facility] ED on 08/24/17 with history of progressively worsening weakness, debility. (1) Fatigue, Debility secondary to Suspected Aspiration Pneumonia and #2 w/ Prolonged History of Dysphagia: CXR in the ED w/ mild appearing ? bibasilar atelectasis superimposed on basilar scarring versus infiltrate RLL. Admission CBC w/ WBC 8.9 without marked shift-->repeat 08/25/17 WBC 14.4 w/ L Shift, UA unremarkable. Admitted to MS, maintain on oxygen with wean as tolerated to room air, continue ATC duonebs, PRN albuterol, maintained on IV Unasyn, HOB, IS parameters w/ pending sputum cultures and urine antigens. Speech consulted, unclear what diet she has been following but noted non-compliance with recommendations prior. (2) Acute kidney injury on CKD stage III: Secondary to #1, possibly poor intake, nephrotoxic regimen. Admission BUN/Cr 35/1.74, prior baseline creatinine noted to be 1.3. Will continue to gently hydrate, hold nephrotoxic medications and repeat chemistry in AM. If no improvement would plan FeNa assessment and renal US. (3) Adult Failure to Thrive: Secondary to #1, #2, but admission physician noted concerns over possible underlying process, possible movement disorder such as Parkinson's Disease plus MSA versus PSP which is exacerbating her dysphagia. Per report outpatient per her neurologist Dr. Ellis, MRI 07/07/17 without evidence of CVA. (4) CAD: s/p ADINA to RCA 05/05/2011, maintain on asa, BB, statin. (5) SVT/PAT: Maintain on asa only, given age and possible fall risk does not appear to have been on anticoagulation, maintain on BB. (6) Chronic Normocytic Anemia: Admission Hgb 11.1, baseline 10-11, stable. (7) Depression and Anxiety: Notable episodes of anxiety, tremors, improves w/ distraction. Maintain on home pRN buspar. (8) Moderately to Severe Protein-Calorie Malnutrition: Evidenced be habitus, muscle and fat loss, poor intake, unclear diet at home, nutrition consulted. (9) Hypertension: Continue home regimen including Coreg, PRN hydralazine. (10) Hyperlipidemia: Continue home statin regimen. (11) Hypothyroidism: Continue home synthroid regimen. (12) Valvular Heart Disease: LV systolic function normal, EF 65%, mild concentric LVH, sigmoid septum, mildly enlarged LA, mild diffuse MV thickening, trivial MVI, moderate 2+ TVI, mild diffuse AV thickening, trivial AV insufficiency, trivial PV insufficiency, RVSP 43 mmHg. (13) GERD: PPI. (14) DVT Prophylaxis: SCDs, renally dosed lovenox. (15) CODE status: Discussed CODE status at length including difference between FULL code, DNR-CCA and DNR-CC status. Following discussions about the differences in these status, requested FULL CODE. Advanced Care Planning Face to Face Time: 17 minutes. Code Visit Inpatient E&M: 00067 Subs Hosp L2 Procedures: 16457 Advncd Care Plan 30 Min
[2017-08-25 07:23] LABS: Anion Gap 6 (5-15); BUN 25 mg/dL (7-18); BUN/Creat Ratio 17.5 RATIO (10-20); Calcium,Total 8.4 mg/dL (8.5-10.1); Chloride 106 mmol/L (98-107); Creatinine, Serum 1.43 mg/dL (0.55-1.02); EST Glomerular Filtration Rate 37 mL/min (>60); Est Glom Filt Rate - Afr Amer 45 mL/min (>60); Estimated Creatinine Clearance 26.69 ml/min; Glucose 97 mg/dL (74-106); Sodium Level 145 mmol/L (136-145)
--- NOTE | 2017-08-25 07:27 | PN_ITS ---
Patient Problems: Active and Suspected Problems (Last Updated 08/24/17 @ 14:37 by Walter Rodriguez DO ) Generalized weakness (Acute) Aspiration pneumonia (Acute) TOMMIE (acute kidney injury) (Acute) Failure to thrive (Acute) Subjective: Patient with no acute events overnight per self and per nursing report. Only complaint is bilateral dry eye. She notes that breathing has improved since presentation. She denies any coughing. Patient denies fevers, chills, nausea, emesis, abdominal pain, chest pain. Objective: Physical Examination: General: awake, alert, oriented to self, place and recent events, markedly more alert from initial examination, cooperative, seated upright in bed, NAD. Skin: normal color, turgor, no icterus, cyanosis. HEENT: AT/NC, EOMI, PERRLA, MMM. Lungs: Diminished BS BL, > bases, moderate effort, no rales, ronchi or wheezing. Heart: Regular rate and rhythm; no gallop, rub audible. Abdomen: soft, NTTP, ND, normal BS. Extremities: no cyanosis, clubbing, or edema. Neurological: patient awake, alert, oriented as noted, improved; cognitive function appears improved from initial presentation, unclear baseline; pupils equally reactive to light and accomodation; cranial nerves II-XII grossly normal , moving all 4 extremities, strength moderately globally decreased. Psychiatric: affect appears normal, no acute evidence of depressive or anxiety feelings. Vitals/I&O's: Vital Signs Temp Pulse Resp BP Pulse Ox 97.3 F L 73 18 124/78 H 98 08/25/17 03:30 08/25/17 03:30 08/25/17 03:30 08/25/17 03:30 08/25/17 03:30 Oxygen Flow Rate (L/min) 2 Oxygen Delivery Method Nasal Cannula Weight: 120 lb 13.013 oz Body Mass Index (BMI) 27.1 Intake and Output for Last 24 Hours 08/23/17 08/24/17 08/25/17 23:59 23:59 23:59 Intake Total 800 / 800 910 / 910 Balance 800 / 800 910 / 910 Laboratory Results 08/25/17 06:35: WBC Pending, RBC Pending, Hgb Pending, Hct Pending, MCV Pending , MCH Pending, MCHC Pending, RDW Pending, RDW Differential Pending, Plt Count Pending, Neut % (Auto) Pending, Absolute Neuts (auto) Pending, Total Counted Pending 08/25/17 06:35: Sodium Pending, Potassium Pending, Chloride Pending, Carbon Dioxide Pending, Anion Gap Pending, BUN Pending, Creatinine Pending, Est GFR ( MDRD) Af Amer Pending, Est GFR (MDRD) Non-Af Pending, BUN/Creatinine Ratio Pending, Glucose Pending, Calcium Pending Current Medications Acetaminophen (Tylenol) 650 mg PO Q6H PRN PRN PRN Reason: Mild Pain (1-3)/Temp > 100.7 F Last Admin: 08/25/17 01:28 Dose: 650 mg Albuterol Sulfate (Ventolin Aerosols) 2.5 mg INHALATION Q2H PRN PRN PRN Reason: SHORTNESS OF BREATH Albuterol/Ipratropium (Duoneb) 3 ml INHALATION Q4H.RT [facility] Last Admin: 08/25/17 06:52 Dose: 3 ml Artificial Tears (Tears Naturale, Artificial Tears) 2 drop EACH EYE TID PRN PRN PRN Reason: DRY EYES Last Admin: 08/25/17 04:53 Dose: 2 drop Budesonide (Pulmicort Aerosol) 0.5 mg INHALATION Q12H.RT [facility] Last Admin: 08/25/17 06:52 Dose: 0.5 mg Buspirone HCl (Buspar) 7.5 mg PO BID PRN PRN PRN Reason: ANXIETY Carvedilol (Coreg) 3.125 mg PO BID [facility] Last Admin: 08/24/17 20:56 Dose: 3.125 mg Enoxaparin Sodium (Lovenox) 30 mg SC DAILY@1000 [facility]JIV Fluticasone Propionate (Flonase Nasal [place]) 2 spray NASAL BID PRN PRN Reason: ALLERGIES Guaifenesin (Mucinex) 1,200 mg PO BID [facility] Last Admin: 08/24/17 20:56 Dose: 1,200 mg Ampicillin Sodium/Sulbactam (Sodium 3 gm/ Sodium Chloride) 112 mls @ 150 mls/ hr IV Q12H [facility] Last Admin: 08/25/17 03:34 Dose: 150 mls/hr Sodium Chloride () 250 mls @ 15 mls/hr IV .[id number] PRN PRN Reason: SALINE FLUSH Levothyroxine Sodium (Synthroid) 50 mcg PO DAILY@0600 [facility] Last Admin: 08/25/17 04:52 Dose: 50 mcg Magnesium Hydroxide (Milk Of Magnesia) 30 ml PO DAILY PRN PRN PRN Reason: Constipation Ondansetron HCl (Zofran) 4 mg IV Q8H PRN PRN PRN Reason: NAUSEA Ondansetron HCl (Zofran Odt) 4 mg PO Q4H PRN PRN PRN Reason: NAUSEA/VOMITING Oxycodone HCl (Oxyir) 5 mg PO Q6H PRN PRN PRN Reason: SEVERE PAIN (6-10/10) Last Admin: 08/25/17 00:05 Dose: 5 mg Pantoprazole Sodium (Protonix) 40 mg PO BID [facility] Last Admin: 08/24/17 20:55 Dose: 40 mg Pravastatin Sodium (Pravachol) 10 mg PO QHS [facility] Last Admin: 08/24/17 20:56 Dose: 10 mg Sodium Chloride () 5 - 30 ml IV UD PRN PRN Reason: SALINE FLUSH Medical Necessity - Tobacco Use Smoking Status: Never smoker Tobacco Use: Non-smoker Assessment/Plan All Active Problems (Last Updated 08/24/17 @ 14:37 by Walter Rodriguez DO) Generalized weakness (Acute) Aspiration pneumonia (Acute) TOMMIE (acute kidney injury) (Acute) Failure to thrive (Acute) Hypotension (Acute) Bradycardia (Acute) Acute cystitis (Acute) The patient is an 82 y/o F w/ PMHx: CKD stage III (Baseline Cr 1.3), HTN, HLD, Hypothyroidism, CAD s/p ADINA to RCA 05/05/2011, Hx SVT/PAT, Valvular Heart Disease (NR TVI), Pulmonary HTN (ECHO 03/2014 RVSP 43 mmHg), GERD who presents to the [facility] ED on 08/24/17 with history of progressively worsening weakness, debility. (1) Fatigue, Debility secondary to Suspected Aspiration Pneumonia and #2 w/ Prolonged History of Dysphagia: CXR in the ED w/ mild appearing ? bibasilar atelectasis superimposed on basilar scarring versus infiltrate RLL. Admission CBC w/ WBC 8.9 without marked shift-->repeat 08/25/17 WBC 14.4 w/ L Shift, UA unremarkable. Admitted to MS, maintain on oxygen with wean as tolerated to room air, continue ATC duonebs, PRN albuterol, maintained on IV Unasyn, HOB, IS parameters w/ pending sputum cultures and urine antigens. Speech consulted, unclear what diet she has been following but noted non-compliance with recommendations prior. (2) Acute kidney injury on CKD stage III: Secondary to #1, possibly poor intake , nephrotoxic regimen. Admission BUN/Cr 35/1.74, prior baseline creatinine noted to be 1.3. Will continue to gently hydrate, hold nephrotoxic medications and repeat chemistry in AM. If no improvement would plan FeNa assessment and renal US. (3) Adult Failure to Thrive: Secondary to #1, #2, but admission physician noted concerns over possible underlying process, possible movement disorder such as Parkinson's Disease plus MSA versus PSP which is exacerbating her dysphagia. Per report outpatient per her neurologist Dr. Ellis, MRI 07/07/17 without evidence of CVA. (4) CAD: s/p ADINA to RCA 05/05/2011, maintain on asa, BB, statin. (5) SVT/PAT: Maintain on asa only, given age and possible fall risk does not appear to have been on anticoagulation, maintain on BB. (6) Chronic Normocytic Anemia: Admission Hgb 11.1, baseline 10-11, stable. (7) Depression and Anxiety: Notable episodes of anxiety, tremors, improves w/ distraction. Maintain on home pRN buspar. (8) Moderately to Severe Protein-Calorie Malnutrition: Evidenced be habitus, muscle and fat loss, poor intake, unclear diet at home, nutrition consulted. (9) Hypertension: Continue home regimen including Coreg, PRN hydralazine. (10) Hyperlipidemia: Continue home statin regimen. (11) Hypothyroidism: Continue home synthroid regimen. (12) Valvular Heart Disease: LV systolic function normal, EF 65%, mild concentric LVH, sigmoid septum, mildly enlarged LA, mild diffuse MV thickening, trivial MVI, moderate 2+ TVI, mild diffuse AV thickening, trivial AV insufficiency, trivial PV insufficiency, RVSP 43 mmHg. (13) GERD: PPI. (14) DVT Prophylaxis: SCDs, renally dosed lovenox. (15) CODE status: Discussed CODE status at length including difference between FULL code, DNR-CCA and DNR-CC status. Following discussions about the differences in these status, requested FULL CODE. Advanced Care Planning Face to Face Time: 17 minutes. Code Visit Inpatient E&M: 51050 Subs Hosp L2 Procedures: 65467 Advncd Care Plan 30 Min
[2017-08-25 07:40] LABS: Absolute Lymphocyte Count 0.74 X10^3/ul (0.83-4.51); Absolute Neutrophil Count 9.5 X10^3/uL (2.0-7.7); Basophil# 0.01 X10^3/uL; Basophil% 0.1 % (0-1); Eosinophil# 0.09 X10^3/uL; Eosinophils% 0.8 % (0-5); Hematocrit 31.7 % (37-47); Hemoglobin 9.8 g/dl (12.0-15.0); Lymphocyte # 0.74 X10^3/ul (4.0); Lymphocyte % 6.7 % (19-41); Mean Corp Hgb Conc 30.9 g/gl (32-36); Mean Corpuscular Hgb 28.7 pg (27.0-32.0); Monocyte% 7.2 % (0-10); Neutrophil # 9.45 X10^3/uL (2.7-7.7); Platelet Count 122 K/mm3 (150-450); RBC Distribution Width CV 15.5 % (11.6-14.6); RBC Distribution Width SD 52.6 fl (35.1-43.9); Red Blood Count 3.41 M/mm3 (4.2-5.4); White Blood Count 11.1 K/mm3 (4.4-11.0)
[2017-08-25 07:43] LABS: POSITIVE COUNT NO; POSITIVE DIFFERENTIAL NO; POSITIVE MORPHOLOGY NO
[2017-08-25] MEDS: Aspirin 81 MG TAB.CHEW PO (09:35)
[2017-08-25] MEDS: Carvedilol 3.125 MG TABLET PO ×2 (09:35→20:17)
[2017-08-25] MEDS: Pantoprazole Sodium 40 MG Tablet PO ×2 (09:36→20:17)
[2017-08-25] MEDS: Enoxaparin 30 MG/0.3 ML Syringe SC (09:36)
[2017-08-25] MEDS: guaiFENesin 1,200 MG Tablet 1200 MG PO ×2 (09:36→20:17)
[2017-08-25] MEDS: Pravastatin 20 MG Tablet 10 MG PO (20:16)
[2017-08-25] MEDS: busPIRone 15 MG TABLET 7.5 MG PO (23:33)
[2017-08-26] VITALS (10 sets, daily range): BP systolic 110–178; BP diastolic 45–84; PULSE 68–100; RESP 12–18; TEMP 36.5–36.8; O2SAT 87–96
[2017-08-26] MEDS: oxyCODONE 5 MG Tablet PO ×3 (00:28→15:19)
[2017-08-26] MEDS: Acetaminophen 325 MG Tablet 650 MG PO ×2 (02:53→10:51)
[2017-08-26] MEDS: MELATONIN 3 MG TABLET 6 MG PO (02:53)
[2017-08-26] MEDS: Levothyroxine 50 MCG Tablet PO (06:36)
[2017-08-26] MEDS: Budesonide Respules 0.5 MG/2 ML AMPUL.NEB. INHALATION ×2 (06:45→19:08)
[2017-08-26] MEDS: Ipratropium/Albuterol Sulfate 3 ML AMPUL.NEB INHALATION ×5 (06:45→23:13)
--- NOTE | 2017-08-26 06:54 | PCM.PN.HOSP ---
Patient Problems: Active and Suspected Problems (Last Updated 08/24/17 @ 14:37 by Walter Rodriguez DO) Generalized weakness (Acute) Aspiration pneumonia (Acute) TOMMIE (acute kidney injury) (Acute) Failure to thrive (Acute) Subjective: Patient overnight with ongoing neck discomfort which is acute on chronic she notes otherwise no acute complaints. Patient evaluated by speech day prior and transition to a soft pur?ed diet with nectar thickened liquids which she appears to currently be tolerating. Discussed at length the importance of maintaining this diet to avoid increased aspiration risk. Discussed patient debility with evaluation per physical and occupational therapies with recognition for senior care facility placement. Patient amenable to discussions with case management and secondary social studies teacher for facility recommendations. Patient denies fevers, chills, nausea, emesis, abdominal pain, chest pain or dyspnea. Objective: Physical Examination: General: awake, alert, oriented x >3, cooperative, seated upright in bed, NAD. Skin: normal color, turgor, no icterus, cyanosis except noted scabbed region to L medial shoulder/posterior neck from scratching and occasional various staged mostly to extremities. HEENT: AT/NC, EOMI, PERRLA, MMM. Lungs: Diminished BS BL, > bases, moderate effort, no rales, ronchi or wheezing. Heart: Regular rate and rhythm; no gallop, rub audible. Abdomen: soft, thin habitus, NTTP, ND, normal BS. Extremities: no cyanosis, clubbing, or edema. Neurological: patient awake, alert, oriented as noted, improved; cognitive function appears improved from initial presentation, unclear baseline; pupils equally reactive to light and accomodation; cranial nerves II-XII grossly normal, moving all 4 extremities, strength improving but remains moderately to severely globally decreased. Psychiatric: affect appears normal, no acute evidence of depressive or anxiety feelings. Vitals/I&O's: Vital Signs Temp Pulse Resp BP Pulse Ox 98.1 F 76 16 110/45 L 92 08/26/17 02:57 08/26/17 02:57 08/26/17 02:57 08/26/17 02:57 08/26/17 02:57 Oxygen Flow Rate (L/min) 2 Oxygen Delivery Method Room Air Weight: 120 lb 13.013 oz Body Mass Index (BMI) 27.1 Intake and Output for Last 24 Hours 0708/25/17 08/26/17 23:59 23:59 23:59 Intake Total 800 / 800 1979 / 1979 245 / 245 Output Total 600 / 600 400 / 400 Balance 800 / 800 1380 / 1380 -155 / -155 Laboratory Results 08/25/17 06:35: WBC 11.1 H, RBC 3.41 L, Hgb 9.8 L, Hct 31.7 L, MCV 93.0, MCH 28.7, MCHC 30.9 L, RDW 15.5 H, RDW Differential 52.6 H, Plt Count 122 L, MPV 11.0, Immature Gran % (Auto) 0.200, Neut % (Auto) 85.0 H, Lymph % (Auto) 6.7 L, [place] % (Auto) 7.2, Eos % (Auto) 0.8, Baso % (Auto) 0.1, Absolute Neuts (auto) 9.5 H, Absolute Lymphs (auto) 0.74 L, Total Counted Not Reportable 08/25/17 06:35: Sodium 145, Potassium 4.0, Chloride 106, Carbon Dioxide 33.0 H, Anion Gap 6, BUN 25 H, Creatinine 1.43 H, Estim Creat Clear Calc 26.69, Est GFR (MDRD) Af Amer 45 L, Est GFR (MDRD) Non-Af 37 L, BUN/Creatinine Ratio 17.5, Glucose 97, Calcium 8.4 L 08/26/17 06:20: WBC Pending, RBC Pending, Hgb Pending, Hct Pending, MCV Pending, MCH Pending, MCHC Pending, RDW Pending, RDW Differential Pending, Plt Count Pending, Neut % (Auto) Pending, Absolute Neuts (auto) Pending, Total Counted Pending 08/26/17 06:20: Sodium Pending, Potassium Pending, Chloride Pending, Carbon Dioxide Pending, Anion Gap Pending, BUN Pending, Creatinine Pending, Est GFR (MDRD) Af Amer Pending, Est GFR (MDRD) Non-Af Pending, BUN/Creatinine Ratio Pending, Glucose Pending, Calcium Pending, Total Bilirubin Pending, AST Pending, ALT Pending, Alkaline Phosphatase Pending, Total Protein Pending, Albumin Pending Current Medications Acetaminophen (Tylenol) 650 mg PO Q6H PRN PRN PRN Reason: Mild Pain (1-3)/Temp > 100.7 F Last Admin: 08/26/17 02:53 Dose: 650 mg Albuterol Sulfate (Ventolin Aerosols) 2.5 mg INHALATION Q2H PRN PRN PRN Reason: SHORTNESS OF BREATH Albuterol/Ipratropium (Duoneb) 3 ml INHALATION Q4H.RT [facility] Last Admin: 08/26/17 06:45 Dose: 3 ml Artificial Tears (Tears Naturale, Artificial Tears) 2 drop EACH EYE Q1H PRN PRN PRN Reason: DRY EYES Last Admin: 08/26/17 06:36 Dose: 2 drop Aspirin (Aspirin, Baby) 81 mg PO DAILY@0800 [facility] Last Admin: 08/25/17 09:35 Dose: 81 mg Budesonide (Pulmicort Aerosol) 0.5 mg INHALATION Q12H.RT [facility] Last Admin: 08/26/17 06:45 Dose: 0.5 mg Buspirone HCl (Buspar) 7.5 mg PO BID [facility] Carvedilol (Coreg) 3.125 mg PO BID [facility] Last Admin: 08/25/17 20:17 Dose: 3.125 mg Enoxaparin Sodium (Lovenox) 30 mg SC DAILY@1000 [facility] Last Admin: 08/25/17 09:36 Dose: 30 mg Fluticasone Propionate (Flonase Nasal [place]) 2 spray NASAL BID PRN PRN Reason: ALLERGIES Guaifenesin (Mucinex) 1,200 mg PO BID [facility] Last Admin: 08/25/17 20:17 Dose: 1,200 mg Ampicillin Sodium/Sulbactam (Sodium 3 gm/ Sodium Chloride) 112 mls @ 150 mls/hr IV Q12H [facility] Last Admin: 08/26/17 03:00 Dose: 150 mls/hr Sodium Chloride () 250 mls @ 15 mls/hr IV .[id number] PRN PRN Reason: SALINE FLUSH Levothyroxine Sodium (Synthroid) 50 mcg PO DAILY@0600 [facility] Last Admin: 08/26/17 06:36 Dose: 50 mcg Magnesium Hydroxide (Milk Of Magnesia) 30 ml PO DAILY PRN PRN PRN Reason: Constipation Ondansetron HCl (Zofran) 4 mg IV Q8H PRN PRN PRN Reason: NAUSEA Ondansetron HCl (Zofran Odt) 4 mg PO Q4H PRN PRN PRN Reason: NAUSEA/VOMITING Oxycodone HCl (Oxyir) 5 mg PO Q6H PRN PRN PRN Reason: SEVERE PAIN (6-10/10) Last Admin: 08/26/17 06:36 Dose: 5 mg Pantoprazole Sodium (Protonix) 40 mg PO BID [facility] Last Admin: 08/25/17 20:17 Dose: 40 mg Pravastatin Sodium (Pravachol) 10 mg PO QHS [facility] Last Admin: 08/25/17 20:16 Dose: 10 mg Sodium Chloride () 5 - 30 ml IV UD PRN PRN Reason: SALINE FLUSH Medical Necessity - Tobacco Use Smoking Status: Never smoker Tobacco Use: Non-smoker Assessment/Plan All Active Problems (Last Updated 08/24/17 @ 14:37 by Walter Rodriguez DO) Generalized weakness (Acute) Aspiration pneumonia (Acute) TOMMIE (acute kidney injury) (Acute) Failure to thrive (Acute) Hypotension (Acute) Bradycardia (Acute) Acute cystitis (Acute) The patient is an 82 y/o F w/ PMHx: CKD stage III (Baseline Cr 1.3), HTN, HLD, Hypothyroidism, CAD s/p ADINA to RCA 05/05/2011, Hx SVT/PAT, Valvular Heart Disease (NR TVI), Pulmonary HTN (ECHO 03/2014 RVSP 43 mmHg), GERD who presents to the [facility] ED on 08/24/17 with history of progressively worsening weakness, debility. (1) Fatigue, Debility secondary to Suspected Aspiration Pneumonia and #2 w/ Prolonged History of Dysphagia: CXR in the ED w/ mild appearing ? bibasilar atelectasis superimposed on basilar scarring versus infiltrate RLL. Admission CBC w/ WBC 8.9 without marked shift-->repeat 08/25/17 WBC 14.4 w/ L Shift, UA unremarkable. Admitted to SC, maintain on oxygen with wean as tolerated to room air, continue ATC duonebs, PRN albuterol, maintained on IV Unasyn, HOB, IS parameters w/ pending sputum cultures and urine antigens. Speech consulted, recommendation for soft entr?e/pureed to increase ease of mastication and nectar thick liquids for safe intake due to risk of silent aspiration. PT, OT evaluations w/ current SNF recommendation therefore will request CM/SW to discussion placement options with patient and family. (2) Acute kidney injury on CKD stage III: Secondary to #1, possibly poor intake, nephrotoxic regimen. Admission BUN/Cr 35/1.74, prior baseline creatinine noted to be 1.3. Gently hydrated, repeat 08/26/17 BUN/Cr 21/1.26, stable. (3) Adult Failure to Thrive: Secondary to #1, #2, but admission physician noted concerns over possible underlying process, possible movement disorder such as Parkinson's Disease plus MSA versus PSP which is exacerbating her dysphagia. Per report outpatient per her neurologist Dr. Ellis, MRI 07/07/17 without evidence of CVA. Speech consulted, recommendation for soft entr?e/pureed to increase ease of mastication and nectar thick liquids for safe intake due to risk of silent aspiration. PT, OT evaluations w/ current SNF recommendation therefore will request CM/SW to discussion placement options with patient and family. (4) CAD: s/p ADINA to RCA 05/05/2011, maintain on asa, BB, statin. (5) SVT/PAT: Maintain on asa only, given age and possible fall risk does not appear to have been on anticoagulation, maintain on BB. (6) Chronic Normocytic Anemia: Admission Hgb 11.1, baseline 10-11, 08/26/17 Hgb 10.2. (7) Depression and Anxiety: Notable episodes of anxiety, tremors, improves w/ distraction. Maintain on home pRN buspar. (8) Moderately to Severe Protein-Calorie Malnutrition: Evidenced be habitus, muscle and fat loss, poor intake, unclear diet at home, nutrition consulted and following. (9) Hypertension: Continue home regimen including Coreg, PRN hydralazine. (10) Hyperlipidemia: Continue home statin regimen. (11) Hypothyroidism: Continue home synthroid regimen. (12) Valvular Heart Disease: LV systolic function normal, EF 65%, mild concentric LVH, sigmoid septum, mildly enlarged LA, mild diffuse MV thickening, trivial MVI, moderate 2+ TVI, mild diffuse AV thickening, trivial AV insufficiency, trivial PV insufficiency, RVSP 43 mmHg. (13) GERD: PPI. (14) DVT Prophylaxis: SCDs, renally dosed lovenox. (15) CODE status: Full Code. Code Visit Inpatient E&M: 89279 Subs Hosp L2
[2017-08-26 06:59] LABS: Absolute Lymphocyte Count 1.15 X10^3/ul (0.83-4.51); Absolute Neutrophil Count 6.6 X10^3/uL (2.0-7.7); Basophil# 0.02 X10^3/uL; Basophil% 0.2 % (0-1); Eosinophil# 0.25 X10^3/uL; Eosinophils% 2.8 % (0-5); Hematocrit 32.2 % (37-47); Hemoglobin 10.2 g/dl (12.0-15.0); Lymphocyte # 1.15 X10^3/ul (4.0); Mean Corp Hgb Conc 31.7 g/gl (32-36); Mean Corpuscular Hgb 29.8 pg (27.0-32.0); Mean Corpuscular Volume 94.2 fL (81-99); Mean Platelet Vol. 11.1 fl (6.2-12.0); Monocyte# 0.85 X10^3/uL; Monocyte% 9.6 % (0-10); Neutrophil # 6.57 X10^3/uL (2.7-7.7); Neutrophil % 74.1 % (47-70); Platelet Count 144 K/mm3 (150-450); RBC Distribution Width CV 15.7 % (11.6-14.6); RBC Distribution Width SD 51.7 fl (35.1-43.9); Red Blood Count 3.42 M/mm3 (4.2-5.4); White Blood Count 8.9 K/mm3 (4.4-11.0)
[2017-08-26 07:04] LABS: ALB/GLOB Ratio 0.7 RATIO (0.9-2.4); AST(SGOT) 29 U/L (15-37); Alanine Aminotransfer ALT/SGPT 24 U/L (13-56); Albumin, Serum 2.5 g/dL (3.2-5.0); Alkaline Phosphatase 148 U/L (45-117); Anion Gap 6 (5-15); BUN 21 mg/dL (7-18); BUN/Creat Ratio 16.7 RATIO (10-20); Chloride 106 mmol/L (98-107); Creatinine, Serum 1.26 mg/dL (0.55-1.02); EST Glomerular Filtration Rate 43 mL/min (>60); Est Glom Filt Rate - Afr Amer 52 mL/min (>60); Estimated Creatinine Clearance 30.29 ml/min; Globulin 3.7 g/dL (2.2-4.2); Glucose 89 mg/dL (74-106); Potassium 4.2 mmol/L (3.5-5.1); Protein, Total 6.2 g/dL (6.4-8.2); Sodium Level 143 mmol/L (136-145)
[2017-08-26 07:10] LABS: POSITIVE COUNT NO; POSITIVE DIFFERENTIAL NO; POSITIVE MORPHOLOGY NO
[2017-08-26] MEDS: Ondansetron ODT 4 MG Tablet PO ×3 (09:50→20:53)
[2017-08-26] MEDS: Gabapentin 400 MG Capsule PO ×2 (10:52→16:46)
[2017-08-26] MEDS: Aspirin 81 MG TAB.CHEW PO (10:52)
[2017-08-26] MEDS: Enoxaparin 30 MG/0.3 ML Syringe SC (10:53)
[2017-08-26] MEDS: Carvedilol 3.125 MG TABLET PO ×2 (10:53→20:53)
[2017-08-26] MEDS: Pantoprazole Sodium 40 MG Tablet PO ×2 (10:53→20:53)
[2017-08-26] MEDS: guaiFENesin 1,200 MG Tablet 1200 MG PO ×2 (10:53→20:53)
[2017-08-26] MEDS: busPIRone 15 MG TABLET 7.5 MG PO ×2 (10:54→20:52)
--- NOTE | 2017-08-26 13:30 | CASEMGMT ---
Social Work Note RN DAVID Curry updated this worker that pt and pt's son are interested in SNF placement at discharge. IJMY met with pt. JIMY introduced self and role at [facility]. Pt is alert and orientated x3. Pt confirms that she is agreeable to SNF placement at discharge for short term rehabilitation. Pt didn't know which facility she would like to go to. JIMY asked pt if it would be ok for this worker to call her son Nahun. Pt gave this worker permission to call her son Nahun. JIMY placed a call to pt's son Nahun. Nahun confirms that pt may need SNF at discharge but is still deciding between SNF or going home with [facility]. Nahun states that his first choice would be TCU. JIMY informed Nahun that at this time TCU doesn't have any beds available. Nahun states understanding and would like a referral made to [facility]. JIMY informed Nahun that this worker will make the initial referral and if Nahun decides to take pt home with [facility] then the referral can be cancelled. Nahun states understanding. JIMY educated Nahun on Medicare requirements and Medicare skilled days. JIMY informed Nahun that he can take pt out of SNF at any time. JIMY educated Nahun on Medicaid and paying for intermodal dispatcher care. JIMY educated Nahun on [employer] and Private Duty Aides. JIMY informed Nahun that this worker will leave in pt's room a Medicaid application, brochure on [employer] and a list of Private Duty Aides. Nahun states understanding and thanked this worker. JIMY placed a call to [facility] quality management to make referral to [facility]. Yina states that she will make referral to W. Plan: W pending acceptance Sydni Poon FLIGHT TOWER DISPATCHER, FISH AND WILDLIFE BIOLOGIST
--- NOTE | 2017-08-26 14:32 | CASEMGMT ---
Per , referral needs sent to [facility]. Voicemail left for Asmita in admissions that a referral would be sent over. Referral faxed at this time. Yina Forbes LPN Clinical Support
--- NOTE | 2017-08-26 15:18 | CHAPLAIN ---
Type of Pastoral Visit _x__ Initial Visit ___ Follow-up Visit ___ On-call Visit ___ General Patient Visit ___ Spiritual Assessment ___ Family Conference ___ Bereavement ___ Rapid Response ___ Code Blue ___ Other (describe below) Pastoral Care Referral From _x__ Patient ___ Family ___ Nurse ___ Physician ___ Certified Nursing Attendant ___ Project Management It Specialist ___ Other (describe below) Sacrament/Intervention _x__ Active listening ___ Anointing ___ Yazdanism ___ Bereavement ___ Communion _x__ Kiana exploration ___ ___ Life review _x__ Prayer ___ Reconciliation ___ Sacrament of Sick _x__ Supportive presence ___ Wedding ___ Other (describe below) Pastoral Comments patient is responsive to spiritual support and reaches out her hand to hold the hand of labor relations supervisor; pt describes her situation and tells that she is feeling nauseous at this time; pt does continue to talk and requests that a prayer be said for her; pt is open to further visits from the labor relations supervisor
--- NOTE | 2017-08-26 20:23 | NURSING ---
Spoke to son Nahun and . Nahun voices concerns about going to [facility]. is concerned about being able to care for patient because she is the laboratory engineer during the day.
[2017-08-26] MEDS: 0.9% Normal Saline 1,000 ML 75 ML IV (20:52)
[2017-08-26] MEDS: Pravastatin 20 MG Tablet 10 MG PO (20:53)
--- NOTE | 2017-08-26 23:17 | CPS ---
added O2 at 2 lpm for sleeping
[2017-08-27] VITALS (7 sets, daily range): BP systolic 143–189; BP diastolic 62–91; PULSE 48–86; RESP 10–18; TEMP 36.5–36.8; O2SAT 97–100
[2017-08-27] MEDS: Ipratropium/Albuterol Sulfate 3 ML AMPUL.NEB INHALATION ×3 (03:37→10:52)
[2017-08-27] MEDS: Levothyroxine 50 MCG Tablet PO (05:55)
[2017-08-27 06:12] LABS: Absolute Lymphocyte Count 1.28 X10^3/ul (0.83-4.51); Basophil# 0.01 X10^3/uL; Basophil% 0.2 % (0-1); Eosinophil# 0.39 X10^3/uL; Eosinophils% 6.3 % (0-5); Hematocrit 29.1 % (37-47); Hemoglobin 9.1 g/dl (12.0-15.0); Lymphocyte # 1.28 X10^3/ul (4.0); Lymphocyte % 20.7 % (19-41); Mean Corp Hgb Conc 31.3 g/gl (32-36); Mean Corpuscular Hgb 29.7 pg (27.0-32.0); Mean Corpuscular Volume 95.1 fL (81-99); Mean Platelet Vol. 11.2 fl (6.2-12.0); Monocyte# 0.53 X10^3/uL; Monocyte% 8.6 % (0-10); Neutrophil # 3.96 X10^3/uL (2.7-7.7); Neutrophil % 63.9 % (47-70); Platelet Count 131 K/mm3 (150-450); RBC Distribution Width CV 15.9 % (11.6-14.6); RBC Distribution Width SD 52.8 fl (35.1-43.9); Red Blood Count 3.06 M/mm3 (4.2-5.4); White Blood Count 6.2 K/mm3 (4.4-11.0)
[2017-08-27 06:13] LABS: POSITIVE COUNT NO; POSITIVE DIFFERENTIAL NO; POSITIVE MORPHOLOGY NO
--- NOTE | 2017-08-27 06:26 | PCM.TXEXTCAR ---
- Diet 08/24/17 14:31 Diet: LOW SODIUM Food consistency:: Mechanical Soft/Ground Liquid Consistency:: [place] Thick Dietary Modifications:: Mechanical Soft Diet [place] Thick Liquids Is pt able to select menu?: No Diet Comments: [facility] SOFT ENTREE, PUREE SIDE DISHES, NO STRAWS, SUPERVISED MEALS SUPPLEMENTS: Ensure Pudding with meals for additional calories/protein (TID) - Routine Orders/Code Status Enema Type: Fleetz Enema Frequency: Daily PRN Suppository Type: Dulcolax 10mg Suppository Frequency: Daily PRN Keep PO Greater than or Equal to (%): 92 Routine Lab Work: - - Repeat CBC, BMP within 1 week. [facility] - Wound(s) upper neck Wound Type: SCABBED AREA PT STATES FROM SCRATCHING Dressing Change: Encourage patient to avoid scratching. May cover if need. - Suggestions for Active Care Change Position every (hours): 2 Hours to sit in a chair: 6 Times a day to sit in chair: 3 - Therapies Weight Bearing: Full weight bearing Physical Therapy: Eval and Treat Occupational Therapy: Eval and Treat Speech Therapy: Eval and Treat - Problem/Diagnosis (1) Aspiration pneumonia Status: Acute Current Visit: Yes (2) TOMMIE (acute kidney injury) Status: Acute Current Visit: Yes (3) Failure to thrive Status: Acute Current Visit: Yes (4) GERD (gastroesophageal reflux disease) Status: Chronic Current Visit: No (5) History of coronary artery stent placement Status: Chronic Comment: ADINA to RCA 05/05/2011, [facility] per Dr. Cain Gayle Current Visit: No (6) Atherosclerotic heart disease of [place] coronary artery without angina pectoris Status: Chronic Comment: ADINA to RCA 05/05/2011, [facility] per Dr. Cain Gayle Current Visit: No (7) Paroxysmal atrial tachycardia Status: Chronic Current Visit: No (8) Secondary pulmonary arterial hypertension Status: Chronic Comment: RVSP 43 mmhg per echo 03/30/2014 Current Visit: No (9) Hyperlipidemia Status: Chronic Current Visit: No (10) Hypothyroidism Status: Chronic Current Visit: No (11) Essential (primary) hypertension Status: Chronic Current Visit: No - Allergies/Procedures Done in Hospital Allergies/Adverse Reactions: Allergies alprazolam [From Xanax] Allergy (Verified 08/24/17 09:38) Other Sulfa (Sulfonamide Antibiotics) Allergy (Verified 08/24/17 09:38) Vomiting cigarette smoke Adverse Reaction (Intermediate, Verified 08/24/17 09:38) cough Procedures: EKG - Type of Care/Length of Stay Estimated LOS: Convalescent Care Less Than 30 days Type of Care Needed: Skilled Rehab Potential: Fair Prognosis: Fair - Additional Orders/Day of Discharge Additional Orders: (1) HOB w/ aspiration precautions. (2) Fall precautions. (3) IS 10x/hr 7a-7p. (4) Position changes q 2 hours while awake in bed. (5) Heating pad for neck PRN H&P will serve as current which was dated: 08/24/17 Day of Discharge: 08/27/17 - Dietary and Speech Recommendations Dietitian Recommendations/Changes: Recommend liberalize diet to low-sodium, texture per FLIGHT OPERATIONS COORDINATOR, d/t poor intake and wt loss which places pt at high risk for malnutrition. Will order Ensure Pudding with meals for additional calories/protein if consumed. - Follow Up Care Primary Care Physician: Javed Carbajal DO [Primary Care Provider] - Please follow up with your Primary Care Physician in: Follow-up within 3-5 days discharge to review admit.
[2017-08-27 06:28] LABS: BUN 16 mg/dL (7-18); Creatinine, Serum 1.12 mg/dL (0.55-1.02); Estimated Creatinine Clearance 34.08 ml/min; Glucose 75 mg/dL (74-106)
[2017-08-27 06:29] LABS: ALB/GLOB Ratio 0.6 RATIO (0.9-2.4); AST(SGOT) 23 U/L (15-37); Alanine Aminotransfer ALT/SGPT 19 U/L (13-56); Albumin, Serum 2.1 g/dL (3.2-5.0); Alkaline Phosphatase 137 U/L (45-117); Anion Gap 6 (5-15); BUN/Creat Ratio 14.3 RATIO (10-20); Calcium,Total 8.5 mg/dL (8.5-10.1); Chloride 108 mmol/L (98-107); EST Glomerular Filtration Rate 50 mL/min (>60); Est Glom Filt Rate - Afr Amer 60 mL/min (>60); Globulin 3.5 g/dL (2.2-4.2); Potassium 4.1 mmol/L (3.5-5.1); Protein, Total 5.6 g/dL (6.4-8.2); Sodium Level 143 mmol/L (136-145)
--- NOTE | 2017-08-27 06:30 | TREXTCAR_ITS ---
- Diet 08/24/17 14:31 Diet: LOW SODIUM Food consistency:: Mechanical Soft/Ground Liquid Consistency:: [place] Thick Dietary Modifications:: Mechanical Soft Diet [place] Thick Liquids Is pt able to select menu?: No Diet Comments: [facility] SOFT ENTREE, PUREE SIDE DISHES, NO STRAWS, SUPERVISED MEALS SUPPLEMENTS: Ensure Pudding with meals for additional calories/protein (TID) - Routine Orders/Code Status Enema Type: Fleetz Enema Frequency: Daily PRN Suppository Type: Dulcolax 10mg Suppository Frequency: Daily PRN Keep PO Greater than or Equal to (%): 92 Routine Lab Work: - - Repeat CBC, BMP within 1 week. [facility] - Wound(s) upper neck Wound Type: SCABBED AREA PT STATES FROM SCRATCHING Dressing Change: Encourage patient to avoid scratching. May cover if need. - Suggestions for Active Care Change Position every (hours): 2 Hours to sit in a chair: 6 Times a day to sit in chair: 3 - Therapies Weight Bearing: Full weight bearing Physical Therapy: Eval and Treat Occupational Therapy: Eval and Treat Speech Therapy: Eval and Treat - Problem/Diagnosis (1) Aspiration pneumonia Status: Acute Current Visit: Yes (2) TOMMIE (acute kidney injury) Status: Acute Current Visit: Yes (3) Failure to thrive Status: Acute Current Visit: Yes (4) GERD (gastroesophageal reflux disease) Status: Chronic Current Visit: No (5) History of coronary artery stent placement Status: Chronic Comment: ADINA to RCA 05/05/2011, [facility] per Dr. Cain Gayle Current Visit: No (6) Atherosclerotic heart disease of [place] coronary artery without angina pectoris Status: Chronic Comment: ADINA to RCA 05/05/2011, [facility] per Dr. Cain Gayle Current Visit: No (7) Paroxysmal atrial tachycardia Status: Chronic Current Visit: No (8) Secondary pulmonary arterial hypertension Status: Chronic Comment: RVSP 43 mmhg per echo 03/30/2014 Current Visit: No (9) Hyperlipidemia Status: Chronic Current Visit: No (10) Hypothyroidism Status: Chronic Current Visit: No (11) Essential (primary) hypertension Status: Chronic Current Visit: No - Allergies/Procedures Done in Hospital Allergies/Adverse Reactions: Allergies alprazolam [From Xanax] Allergy (Verified 08/24/17 09:38) Other Sulfa (Sulfonamide Antibiotics) Allergy (Verified 08/24/17 09:38) Vomiting cigarette smoke Adverse Reaction (Intermediate, Verified 08/24/17 09:38) cough Procedures: EKG - Type of Care/Length of Stay Estimated LOS: Convalescent Care Less Than 30 days Type of Care Needed: Skilled Rehab Potential: Fair Prognosis: Fair - Additional Orders/Day of Discharge Additional Orders: (1) HOB w/ aspiration precautions. (2) Fall precautions. (3 ) IS 10x/hr 7a-7p. (4) Position changes q 2 hours while awake in bed. (5) Heating pad for neck PRN H&P will serve as current which was dated: 08/24/17 Day of Discharge: 08/27/17 - Dietary and Speech Recommendations Dietitian Recommendations/Changes: Recommend liberalize diet to low-sodium, texture per BABY STROLLER RENTAL CLERK, d/t poor intake and wt loss which places pt at high risk for malnutrition. Will order Ensure Pudding with meals for additional calories/ protein if consumed. - Follow Up Care Primary Care Physician: Javed Carbajal DO [Primary Care Provider] - Please follow up with your Primary Care Physician in: Follow-up within 3-5 days discharge to review admit.
[2017-08-27] MEDS: Budesonide Respules 0.5 MG/2 ML AMPUL.NEB. INHALATION (07:22)
[2017-08-27] MEDS: Gabapentin 400 MG Capsule PO (08:25)
[2017-08-27] MEDS: Aspirin 81 MG TAB.CHEW PO (08:26)
--- NOTE | 2017-08-27 08:32 | CASEMGMT ---
Addendum entered by Fay Mosquera 08/27/17 09:21: Physician spoke w/son, he is in agreement w/pt going to [facility] today. SW then spoke w/son, let him know [facility] can take pt. Son in agreement with this. SW explained will set up ambulance to take pt to [facility] given her oxygen needs and intermittent confusion. Son in agreement with this as well. SW let son know will set up an ambulance around 2 or 3pm. SW faxed all orders to [facility], schedule II script to [facility]. SW also completed hospital exemption in [place]. SW set up an ambulance w/[facility] for 2pm. SW let RN here and pt know time. SW left Asmita at [facility] a message letting her know a time also. No further needs anticipated. AMBER Sampson, RN CLINICAL COORDINATOR Original Note: Addendum entered by Fay Mosquera 08/27/17 08:57: Asmita at [facility] states they can take pt. SW called son, message left requesting a return call in regard to discharge plan for pt. AMBER Sampson, RN CLINICAL COORDINATOR Original Note: SW spoke maryam/Asmita from [facility], questions answered, she will let SW know if they can take pt, SW awaiting call back. AMBER Sampson, RN CLINICAL COORDINATOR
[2017-08-27] MEDS: Carvedilol 3.125 MG TABLET PO (09:20)
[2017-08-27] MEDS: busPIRone 15 MG TABLET 7.5 MG PO (09:20)
[2017-08-27] MEDS: guaiFENesin 1,200 MG Tablet 1200 MG PO (09:20)
[2017-08-27] MEDS: Enoxaparin 30 MG/0.3 ML Syringe SC (09:20)
[2017-08-27] MEDS: Pantoprazole Sodium 40 MG Tablet PO (09:20)
--- NOTE | 2017-08-27 10:11 | PCM.DC.SUM ---
Discharge Date and Diagnosis - Problem List Patient Problems: Active and Suspected Problems (Last Updated 08/24/17 @ 14:37 by Walter Rodriguez DO) Generalized weakness (Acute) Aspiration pneumonia (Acute) TOMMIE (acute kidney injury) (Acute) Failure to thrive (Acute) Date of Admission: 08/24/17 Date of Discharge: 08/27/17 - Primary Discharge Diagnosis Active and Suspected Problems (Last Updated 08/24/17 @ 14:37 by Walter Rodriguez DO) (1) Fatigue, Debility secondary to Suspected Aspiration Pneumonia and #2 w/ Prolonged History of Dysphagia (2) Acute kidney injury on CKD stage III, Secondary to #1, possibly poor intake, nephrotoxic regimen (3) Adult Failure to Thrive, Secondary to #1, #2, but admission physician noted concerns over possible underlying process, possible movement disorder (4) CAD s/p ADINA to RCA (5) SVT/PAT (6) Chronic Normocytic Anemia (7) Depression and Anxiety (8) Moderately to Severe Protein-Calorie Malnutrition (9) Hypertension (10) Hyperlipidemia (11) Hypothyroidism (12) Valvular Heart Disease (13) GERD - Secondary Discharge Diagnosis Chronic Problems (Last Updated 08/24/17 @ 14:37 by Walter Rodriguez DO) GERD (gastroesophageal reflux disease) (Chronic) History of hypertension (Chronic) History of coronary artery stent placement (Chronic 05/05/11) ADINA to RCA 05/05/2011, [facility] per Dr. Cain Gayle Atherosclerotic heart disease of [place] coronary artery without angina pectoris (Chronic) ADINA to RCA 05/05/2011, [facility] per Dr. Cain Gayle Supraventricular tachycardia (Chronic) Paroxysmal atrial tachycardia (Chronic) Non-rheumatic tricuspid valve insufficiency (Chronic) 2+ per echo 03/30/2014 Secondary pulmonary arterial hypertension (Chronic) RVSP 43 mmhg per echo 03/30/2014 Hyperlipidemia (Chronic) Chronic ulcer of back (Chronic) Hypothyroidism (Chronic) Essential (primary) hypertension (Chronic) Hospital Course and Treatment Operations: None Procedures: EKG Summary of Care Provided: The patient is an 82 y/o F w/ PMHx: CKD stage III (Baseline Cr 1.3), HTN, HLD, Hypothyroidism, CAD s/p ADINA to RCA 05/05/2011, Hx SVT/PAT, Valvular Heart Disease (NR TVI), Pulmonary HTN (ECHO 03/2014 RVSP 43 mmHg), GERD who presented to the [facility] ED on 08/24/17 with history of progressively worsening weakness, debility. CXR in the ED w/ mild appearing ? bibasilar atelectasis superimposed on basilar scarring versus infiltrate RLL. Admission CBC w/ WBC 8.9 without marked shift-->repeat 08/25/17 WBC 14.4 w/ L Shift-->08/27/17 WBC 6.2 with resolved L shift, UA unremarkable. Admitted to [place], maintained on oxygen with wean to room air, continued ATC duonebs, PRN albuterol, maintained on IV Unasyn w/ oral transition upon discharge to augmentin to complete 7 day course for suspected aspiration associated PNA, HOB, IS parameters w/ pending sputum cultures and urine antigens. Speech consulted, recommendation for soft entr?e/pureed to increase ease of mastication and nectar thick liquids for safe intake due to risk of silent aspiration with planned ongoing ST upon SNF transition. Patient w/ TOMMIE on CKD IIII noted upon admission secondary to acute presentation (aspiration PNA), possibly poor intake, nephrotoxic regimen. Admission BUN/Cr 35/1.74, prior baseline creatinine noted to be 1.3. Gently hydrated, repeat 08/26/17 BUN/Cr 21/1.26, stable. Patient w/ concerns for Adult Failure to Thrive secondary to her acute presentations, but admission physician noted concerns over possible underlying process, possible movement disorder such as Parkinson's Disease plus MSA versus PSP exacerbating her dysphagia. Per report outpatient per her neurologist Dr. Ellis, MRI 07/07/17 without evidence of CVA. Encouraged routine follow-up with her Neurologist. Speech consulted, recommendation for soft entr?e/pureed to increase ease of mastication and nectar thick liquids for safe intake due to risk of silent aspiration. PT, OT, ST evaluations w/ SNF recommendation with patient and family amenable. Patient discharged to intermediate facility in stable improved condition with recommended follow-up with PCP, continue therapies including speech as well as routine follow-up with her neurologist. DAY OF DISCHARGE PROGRESS NOTE: Subjective: Patient without acute event overnight per self and nursing report. Patient neck discomfort improvement and general discomfort with restart gabapentin. Patient denies fever, chills, nausea, emesis, abdominal pain, chest pain or dyspnea. She notes she has been breathing better. She notes tolerating therapies and working w/ speech. Patient agreeable to discharge to SNF for ongoing therapies. Patient will be discharged with follow-up with primary care physician as well as encouraged follow-up with her Neurologist Dr. Ellis. Objective: T 97.9, heart rate 71, BP 143/62, respiratory rate 16, 97% on 2 L nasal cannula. Physical Examination: General: awake, alert, oriented x >3, cooperative, seated upright in bed, NAD. Skin: normal color, turgor, no icterus, cyanosis except noted scabbed region to L medial shoulder/posterior neck from scratching and occasional various staged mostly to extremities. HEENT: AT/NC, EOMI, PERRLA, MMM. Lungs: Diminished BS BL, > bases, moderate effort, no rales, ronchi or wheezing. Heart: Regular rate and rhythm; no gallop, rub audible. Abdomen: soft, thin habitus, NTTP, ND, normal BS. Extremities: no cyanosis, clubbing, or edema. Neurological: patient awake, alert, oriented as noted, improved; cognitive function appears improved from initial presentation, unclear baseline; pupils equally reactive to light and accomodation; cranial nerves II-XII grossly normal, moving all 4 extremities, strength improving but remains moderately to severely globally decreased. Psychiatric: affect appears normal, no acute evidence of depressive or anxiety feelings. Assessment and Plan: Please see hospital summary above. Home Medications: Medications to take at Discharge Budesonide/Formoterol 160/4.5 [Symbicort 160/4.5 Mcg Inhaler (SP)] 2 puff INHALATION BID PRN 06/01/13 Pantoprazole Sodium [Protonix] 40 mg PO BID 06/01/13 Murine Dry Eyes 2 drp EACH EYE TID PRN PRN 01/26/17 Acetaminophen [Tylenol Tablet] 650 mg PO Q6H PRN PRN tab 01/28/17 Albuterol IH (ProAir) [Proair Hfa] 2 puff INHALATION Q4H PRN PRN 05/26/17 Buspirone HCl 7.5 mg PO BID 05/26/17 Fluticasone 0.05% [Flonase Nasal [place]] 2 spray NASAL BID PRN 05/26/17 Furosemide [Lasix] 20 mg PO DAILY 05/26/17 Ondansetron HCl [Zofran] 4 mg PO Q4H PRN PRN 05/26/17 Carvedilol [Coreg (Beta [place]igo)] 6.25 mg PO BID 08/20/17 pravastatin 10 mg tablet 10 mg PO QHS 08/23/17 Cyanocobalamin (Vitamin B-12) [Vitamin B12] 5,000 mcg PO DAILY 08/24/17 Levothyroxine [Synthroid] 50 mcg PO DAILY 08/24/17 Amoxicillin/Potassium Clav [Augmentin 875-125 Tablet] 1 each PO BID 7 Days tablet 08/27/17 Aspirin [Aspirin, Baby] 81 mg PO DAILY@0800 tab.chew 08/27/17 Gabapentin [Neurontin] 400 mg PO BID #0 08/27/17 Guaifenesin [Mucinex] 1,200 mg PO BID #20 tablet 08/27/17 Oxycodone [Oxyir] 5 mg PO Q6H PRN PRN 5 Days #20 tab 08/27/17 Following Prescrptions Were Given to Patient: Oxycodone [Oxyir] 5 mg PO Q6H PRN PRN 5 Days #20 tab PRN Reason: Severe Pain (6-10/10) Amoxicillin/Potassium Clav [Augmentin 875-125 Tablet] 1 each PO BID 7 Days tablet Primary Care Physician: Javed Carbajal DO [Primary Care Provider] - Please follow up with your Primary Care Physician in: Follow-up within 3-5 days discharge to review admit. [facility]position: [facility] facility Minutes spent on discharge:: 35 Patient Condition:: Fair Medical Necessity - Tobacco Use Smoking Status: Never smoker Tobacco Use: Non-smoker Meaningful Use Info Meaningful Use Diagnoses (Choose all that apply): None applicable Code Visit Inpatient E&M: 92309 Disch Hosp
--- NOTE | 2017-08-27 10:20 | DS.PCM_ITS ---
Discharge Date and Diagnosis - Problem List Patient Problems: Active and Suspected Problems (Last Updated 08/24/17 @ 14:37 by Walter Rodriguez DO ) Generalized weakness (Acute) Aspiration pneumonia (Acute) TOMMIE (acute kidney injury) (Acute) Failure to thrive (Acute) Date of Admission: 08/24/17 Date of Discharge: 08/27/17 - Primary Discharge Diagnosis Active and Suspected Problems (Last Updated 08/24/17 @ 14:37 by Walter Rodriguez DO ) (1) Fatigue, Debility secondary to Suspected Aspiration Pneumonia and #2 w/ Prolonged History of Dysphagia (2) Acute kidney injury on CKD stage III, Secondary to #1, possibly poor intake , nephrotoxic regimen (3) Adult Failure to Thrive, Secondary to #1, #2, but admission physician noted concerns over possible underlying process, possible movement disorder (4) CAD s/p ADINA to RCA (5) SVT/PAT (6) Chronic Normocytic Anemia (7) Depression and Anxiety (8) Moderately to Severe Protein-Calorie Malnutrition (9) Hypertension (10) Hyperlipidemia (11) Hypothyroidism (12) Valvular Heart Disease (13) GERD - Secondary Discharge Diagnosis Chronic Problems (Last Updated 08/24/17 @ 14:37 by Walter Rodriguez DO) GERD (gastroesophageal reflux disease) (Chronic) History of hypertension (Chronic) History of coronary artery stent placement (Chronic 05/05/11) ADINA to RCA 05/05/2011, [facility] per Dr. Cain Gayle Atherosclerotic heart disease of [place] coronary artery without angina pectoris (Chronic) ADINA to RCA 05/05/2011, [facility] per Dr. Cain Gayle Supraventricular tachycardia (Chronic) Paroxysmal atrial tachycardia (Chronic) Non-rheumatic tricuspid valve insufficiency (Chronic) 2+ per echo 03/30/2014 Secondary pulmonary arterial hypertension (Chronic) RVSP 43 mmhg per echo 03/30/2014 Hyperlipidemia (Chronic) Chronic ulcer of back (Chronic) Hypothyroidism (Chronic) Essential (primary) hypertension (Chronic) Hospital Course and Treatment Operations: None Procedures: EKG Summary of Care Provided: The patient is an 82 y/o F w/ PMHx: CKD stage III (Baseline Cr 1.3), HTN, HLD, Hypothyroidism, CAD s/p ADINA to RCA 05/05/2011, Hx SVT/PAT, Valvular Heart Disease (NR TVI), Pulmonary HTN (ECHO 03/2014 RVSP 43 mmHg), GERD who presented to the [facility] ED on 08/24/17 with history of progressively worsening weakness, debility. CXR in the ED w/ mild appearing ? bibasilar atelectasis superimposed on basilar scarring versus infiltrate RLL. Admission CBC w/ WBC 8.9 without marked shift-->repeat 08/25/17 WBC 14.4 w/ L Shift-->08/27/17 WBC 6.2 with resolved L shift, UA unremarkable. Admitted to [place], maintained on oxygen with wean to room air, continued ATC duonebs, PRN albuterol, maintained on IV Unasyn w/ oral transition upon discharge to augmentin to complete 7 day course for suspected aspiration associated PNA, HOB, IS parameters w/ pending sputum cultures and urine antigens. Speech consulted, recommendation for soft entr?e/ pureed to increase ease of mastication and nectar thick liquids for safe intake due to risk of silent aspiration with planned ongoing ST upon SNF transition. Patient w/ TOMMIE on CKD IIII noted upon admission secondary to acute presentation (aspiration PNA), possibly poor intake, nephrotoxic regimen. Admission BUN/Cr 35 /1.74, prior baseline creatinine noted to be 1.3. Gently hydrated, repeat BUN/Cr 21/1.26, stable. Patient w/ concerns for Adult Failure to Thrive secondary to her acute presentations, but admission physician noted concerns over possible underlying process, possible movement disorder such as Parkinson' s Disease plus MSA versus PSP exacerbating her dysphagia. Per report outpatient per her neurologist Dr. Ellis, MRI 07/07/17 without evidence of CVA. Encouraged routine follow-up with her Neurologist. Speech consulted, recommendation for soft entr?e/pureed to increase ease of mastication and nectar thick liquids for safe intake due to risk of silent aspiration. PT, OT, ST evaluations w/ SNF recommendation with patient and family amenable. [facility] improved condition with recommended follow-up with PCP, continue therapies including speech as well as routine follow-up with her neurologist. DAY OF DISCHARGE PROGRESS NOTE: Subjective: Patient without acute event overnight per self and nursing report. Patient neck discomfort improvement and general discomfort with restart gabapentin. Patient denies fever, chills, nausea, emesis, abdominal pain, chest pain or dyspnea. She notes she has been breathing better. She notes tolerating therapies and working w/ speech. Patient agreeable to discharge to SNF for ongoing therapies. Patient will be discharged with follow-up with primary care physician as well as encouraged follow-up with her Neurologist Dr. Ellis. Objective: T 97.9, heart rate 71, BP 143/62, respiratory rate 16, 97% on 2 L nasal cannula. Physical Examination: General: awake, alert, oriented x >3, cooperative, seated upright in bed, NAD. Skin: normal color, turgor, no icterus, cyanosis except noted scabbed region to L medial shoulder/posterior neck from scratching and occasional various staged mostly to extremities. HEENT: AT/NC, EOMI, PERRLA, MMM. Lungs: Diminished BS BL, > bases, moderate effort, no rales, ronchi or wheezing. Heart: Regular rate and rhythm; no gallop, rub audible. Abdomen: soft, thin habitus, NTTP, ND, normal BS. Extremities: no cyanosis, clubbing, or edema. Neurological: patient awake, alert, oriented as noted, improved; cognitive function appears improved from initial presentation, unclear baseline; pupils equally reactive to light and accomodation; cranial nerves II-XII grossly normal , moving all 4 extremities, strength improving but remains moderately to severely globally decreased. Psychiatric: affect appears normal, no acute evidence of depressive or anxiety feelings. Assessment and Plan: Please see hospital summary above. Home Medications: Medications to take at Discharge Budesonide/Formoterol 160/4.5 [Symbicort 160/4.5 Mcg Inhaler (SP)] 2 puff INHALATION BID PRN 06/01/13 Pantoprazole Sodium [Protonix] 40 mg PO BID 06/01/13 Murine Dry Eyes 2 drp EACH EYE TID PRN PRN 01/26/17 Acetaminophen [Tylenol Tablet] 650 mg PO Q6H PRN PRN tab 01/28/17 Albuterol IH (ProAir) [Proair Hfa] 2 puff INHALATION Q4H PRN PRN 05/26/17 Buspirone HCl 7.5 mg PO BID 05/26/17 Fluticasone 0.05% [Flonase Nasal [place]] 2 spray NASAL BID PRN 05/26/17 Furosemide [Lasix] 20 mg PO DAILY 05/26/17 Ondansetron HCl [Zofran] 4 mg PO Q4H PRN PRN 05/26/17 Carvedilol [Coreg (Beta [place]igo)] 6.25 mg PO BID 08/20/17 pravastatin 10 mg tablet 10 mg PO QHS 08/23/17 Cyanocobalamin (Vitamin B-12) [Vitamin B12] 5,000 mcg PO DAILY 08/24/17 Levothyroxine [Synthroid] 50 mcg PO DAILY 08/24/17 Amoxicillin/Potassium Clav [Augmentin 875-125 Tablet] 1 each PO BID 7 Days tablet 08/27/17 Aspirin [Aspirin, Baby] 81 mg PO DAILY@0800 tab.chew 08/27/17 Gabapentin [Neurontin] 400 mg PO BID #0 08/27/17 Guaifenesin [Mucinex] 1,200 mg PO BID #20 tablet 08/27/17 Oxycodone [Oxyir] 5 mg PO Q6H PRN PRN 5 Days #20 tab 08/27/17 Following Prescrptions Were Given to Patient: Oxycodone [Oxyir] 5 mg PO Q6H PRN PRN 5 Days #20 tab PRN Reason: Severe Pain (6-10/10) Amoxicillin/Potassium Clav [Augmentin 875-125 Tablet] 1 each PO BID 7 Days tablet Primary Care Physician: Javed Carbajal DO [Primary Care Provider] - Please follow up with your Primary Care Physician in: Follow-up within 3-5 days discharge to review admit. Disposition: [facility] facility Minutes spent on discharge:: 35 Patient Condition:: Fair Medical Necessity - Tobacco Use Smoking Status: Never smoker Tobacco Use: Non-smoker Meaningful Use Info Meaningful Use Diagnoses (Choose all that apply): None applicable Code Visit Inpatient E&M: 40230 Disch Hosp
== END 2017-08-27 14:00 | disposition skilled nursing facility (03) | DRG 177 ==
LOC: ED 13:23 → MS2 14:46
PROVIDERS: Emergency Provider Emergency Medicine; Family Provider Family Medicine; PCP Family Medicine; Visit Provider Family Medicine
DX: J69.0 Pneumonitis due to inhalation of food and vomit (principal); E43 Unspecified severe protein-calorie malnutrition; N17.9 Acute kidney failure, unspecified; I12.9 Hypertensive chronic kidney disease with stage 1 through stage 4 chronic kidney disease, or unspecified chronic kidney disease; N18.3 Chronic kidney disease, stage 3 (moderate); R62.7 Adult failure to thrive; K21.9 Gastro-esophageal reflux disease without esophagitis; I25.10 Atherosclerotic heart disease of native coronary artery without angina pectoris; Z95.5 Presence of coronary angioplasty implant and graft; I27.21 Secondary pulmonary arterial hypertension; E03.9 Hypothyroidism, unspecified; E78.5 Hyperlipidemia, unspecified; R13.10 Dysphagia, unspecified; F41.9 Anxiety disorder, unspecified; F32.9 Major depressive disorder, single episode, unspecified; D64.9 Anemia, unspecified; Z68.27 Body mass index [BMI] 27.0-27.9, adult
CPT/HCPCS: 36415; 71045; 80048; 80053; 81001; 84134; 84484; 85025; 87449; 92507; 92526; 93005; 94640; 94667; 94668; 97162; 97165; 97530; 97535; 97802; 99283; J7030; J0295; J3030

== ENCOUNTER → 2017-09-20 10:41 | Outpatient (CLI) | payer MEDICARE, OTHER, SELFPAY ==
[2017-09-20 12:43] LABS: Absolute Lymphocyte Count 1.38 X10^3/ul (0.83-4.51); Absolute Neutrophil Count 2.8 X10^3/uL (2.0-7.7); Basophil# 0.03 X10^3/uL; Basophil% 0.6 % (0-1); Eosinophil# 0.16 X10^3/uL; Eosinophils% 3.3 % (0-5); Hematocrit 37.3 % (37-47); Hemoglobin 12.1 g/dl (12.0-15.0); Lymphocyte # 1.38 X10^3/ul (4.0); Lymphocyte % 28.3 % (19-41); Mean Corp Hgb Conc 32.4 g/gl (32-36); Mean Corpuscular Hgb 29.3 pg (27.0-32.0); Mean Corpuscular Volume 90.3 fL (81-99); Mean Platelet Vol. 10.4 fl (6.2-12.0); Monocyte# 0.52 X10^3/uL; Monocyte% 10.7 % (0-10); Neutrophil # 2.77 X10^3/uL (2.7-7.7); Neutrophil % 56.9 % (47-70); Platelet Count 301 K/mm3 (150-450); RBC Distribution Width CV 14.4 % (11.6-14.6); RBC Distribution Width SD 46.7 fl (35.1-43.9); Red Blood Count 4.13 M/mm3 (4.2-5.4); White Blood Count 4.9 K/mm3 (4.4-11.0)
[2017-09-20 12:45] LABS: POSITIVE COUNT NO; POSITIVE DIFFERENTIAL NO; POSITIVE MORPHOLOGY NO
[2017-09-20 13:07] LABS: ALB/GLOB Ratio 0.8 RATIO (0.9-2.4); AST(SGOT) 28 U/L (15-37); Alanine Aminotransfer ALT/SGPT 25 U/L (13-56); Albumin, Serum 3.3 g/dL (3.2-5.0); Alkaline Phosphatase 160 U/L (45-117); Anion Gap 7 (5-15); BUN 22 mg/dL (7-18); BUN/Creat Ratio 19.8 RATIO (10-20); Calcium,Total 9.7 mg/dL (8.5-10.1); Chloride 100 mmol/L (98-107); Creatinine, Serum 1.11 mg/dL (0.55-1.02); EST Glomerular Filtration Rate 50 mL/min (>60); Est Glom Filt Rate - Afr Amer 61 mL/min (>60); Globulin 4.1 g/dL (2.2-4.2); Glucose 81 mg/dL (74-106); Potassium 3.7 mmol/L (3.5-5.1); Protein, Total 7.4 g/dL (6.4-8.2); Sodium Level 138 mmol/L (136-145); Thyroid Stim Hormone (TSH) 0.77 uIU/mL (0.358-3.74)
== END ==
PROVIDERS: Family Provider Family Medicine; PCP Family Medicine; Visit Provider Family Medicine
DX: I12.9 Hypertensive chronic kidney disease with stage 1 through stage 4 chronic kidney disease, or unspecified chronic kidney disease (principal); N18.3 Chronic kidney disease, stage 3 (moderate); E46 Unspecified protein-calorie malnutrition; E03.9 Hypothyroidism, unspecified; D64.9 Anemia, unspecified
CPT/HCPCS: 36415; 80053; 84443; 85025

== ENCOUNTER 2017-11-22 11:30 | Outpatient (RCR) | payer MEDICARE, OTHER, SELFPAY ==
--- NOTE | 2017-11-04 14:03 | HP.PTEVAL_ITS ---
Patient's Visit Information MARV DUNBAR is a 82 year old F referred to Physical Therapy by Javed Carbajal DO with a diagnosis of dizziness and history of falls. Date of Evaluation: 11/04/17 Physical Therapist: Walter Newsome DPT, [place] - Visit Plan Frequency: 2x /Week Duration: 4-6 Weeks Plan: 2x/week for 4-6 weeks,. 1. patient to do seated VOR at home. 2. work on gait and static balance without AD in therapy only. 3. Monitor and progress balance ex to tolerance. Pt will have 2 weeks vacatio in this first POC. - Subjective Subjective: Son Nahun is with her. Has been diagnosed with Parkinsons at [facility]. Was having PT there and discharged due to lack of improvement with balance and strength and vestibular rehab recommended. Now living with Son in [place] one step to enter which is manageable. Walks at home with wh walker. No recent falls since 6 months ago. Was trying to hang clothes in closet and standing. Got shaky and fell. Lightheaded at times most days. Usually with standing and trying to walk. It can last short duration up to all day. This has happened for a couple years. Feet are numby and not sure why. Dresses self and bathes and bathroom I. She says she cooks meals but son disagrees. Does ex but not often. Activities include reading alot of day. Shops a couple times a month with family but not often. Not working. Sleeps OK but up late at night. - Pain LB Pain Intensity (Out of 10): 0 Pain Intensity Range: 0 - Objective Walks with wh walker hunched over with decent step length. Transfes out of chair slowly needing UE and tending to lean posterior. steps not tested. VOR is challenging speed plata even sitting in chair. Standing without support is very scary for patient and she begins to shake and shows obvious anxiety but can do it. Can walk with HH min A 6 steps but very fearful and grabs for walker as soon as we are near it. steps are short. With wh walker can march and walk BW. coordination to reciprocal tapping is slow. LE AROM WFL., ankle DF limited L >R to 0 degrees. LE strength 4/5. UE aROM WFL. reflexes 2/3. Sensation to LE gross light touch WNL for most part but makes some mistakes with L adn right. Oculomotor: slow with pursuit and saccades and VOR but not symptomatic. - Goals Goal 1:: Walk 30 feet without AD without notable fear on firm surface I. Goal Time Frame: 4-6 Weeks Goal 2:: Tolerate FGA without AD. Goal Time Frame: 4-6 Weeks - Rehabilitation Potential Physical Therapy Diagnosis: unsteadiness and fear. Rehabilitation Potential: Fair - Anticipated Interventions Patient/Client Instruction: Educate patient on: Condition, Plan of Care For the Purpose of:: To improve balance, To improve safety Therapeutic Exercise to Include: Balance training, Gait and locomotor training For the Purpose of:: To improve balance, To improve safety Thank you for the opportunity to evaluate your patient. For Medicare and Medicare HMO plans, please review the plan of care and approve it. It will need to be FAXED BACK to us at [phone] for Medicare purposes. Please let me know if there are questions or concerns regarding this plan of care. Physician Signature: Date:
--- NOTE | 2018-01-27 09:57 | HP.PT.NRP ---
HP - Discharge Summary (1) - Patient Information MAY Mando DUNBAR was seen in my office for initial evaluation on 11/04/17. The following Plan of Care was established for this patient: Initial Frequency: 2x /Week Initial Duration: 4-6 Weeks - Anticipated Interventions Patient/Client Instruction: Educate patient on: Condition, Plan of Care For the Purpose of:: To improve balance, To improve safety Therapeutic Exercise to Include: Balance training, Gait and locomotor training For the Purpose of:: To improve balance, To improve safety This patient was last seen in our office 11/22/17. Pertinent comments regarding their Physical therapy will appear below: Pt seen 5 visits for plan of care but cancelled the last two scheduled visits and neglected to reschedule. at this point, it has been over two months adn I will discontinue due to nonattendance. At this point I will be discontinuing this patient from physical therapy. I would be happy to see this patient again in the future if found appropriate by the physician. Thank you! Walter Newsome, DPT, OCS, CSCS
== END 2017-11-22 19:00 | disposition home or self-care (01) ==
LOC: PT 11:30
PROVIDERS: Family Provider Family Medicine; PCP Family Medicine; Referring Provider Family Medicine; Visit Provider Family Medicine
DX: R42 Dizziness and giddiness (principal); Z91.81 History of falling
CPT/HCPCS: 97110; 97116; 97162; 97530

== ENCOUNTER 2017-12-11 09:52 | Observation (INO) | payer MEDICARE, OTHER, SELFPAY ==
[2017-12-11] VITALS (12 sets, daily range): BP systolic 114–156; BP diastolic 50–96; PULSE 91–118; RESP 16–18; TEMP 34.6–37.2; O2SAT 90–100; BMI 24.1; BMI 25.9; BMI 26.0
--- NOTE | 2017-12-11 10:13 | RAD_ITS ---
STUDY: X-RAY CHEST REASON FOR EXAM: Female, 82 years old. Minimally responsive. Recent UTI TECHNIQUE: PA and lateral views of the chest. COMPARISON: 08/24/2017 FINDINGS: There is hyperinflation of the lungs consistent with chronic obstructive lung disease (COPD). Lungs are clear. There is no demonstrated pleural abnormality. There is mild cardiac enlargement. Normal mediastinum and crescencio. Normal visualized pulmonary arteries. Normal visualized aortic arch and descending thoracic aorta. There are diffuse degenerative changes of the visualized thoracic spine. There is degenerative osteoarthritis of the bilateral shoulders. There is no demonstrated abnormality of the visualized soft tissue structures of the upper abdomen. RAD/Chest PA and Lateral IMPRESSION: COPD. Lungs are clear. Electronically Signed: Rudi Easley DO at 12:03 EDT Tel , Service support ,
--- NOTE | 2017-12-11 10:13 | EKG12_ITS ---
Test Reason : UNRESPONSIVE Blood Pressure : / mmHG Vent. Rate : 097 BPM Atrial Rate : 097 BPM P-R Int : 170 ms QRS Dur : 098 ms QT Int : 332 ms P-R-T Axes : 063 053 -78 degrees QTc Int : 421 ms Normal sinus rhythm ST & T wave abnormality, consider inferolateral ischemia Abnormal ECG Confirmed by RADHA RIVAS, STEVE ([id number]), make up editor FLYNN PATRICIO ([id number]) on 12/13/2017 3:25:31 PM Referred By: TANESHA Confirmed By:STEVE GARCIA MD
--- NOTE | 2017-12-11 10:14 | CT_ITS ---
STUDY: CT BRAIN WITHOUT CONTRAST REASON FOR EXAM: Female, 82 years old. Minimally responsive. Recent UTI RADIATION DOSAGE (If Supplied By Facility): CTDIvol = ( 44.99 ) mGy, DLP = ( 779.24 ) mGycm TECHNIQUE: Transaxial CT imaging of the brain was performed without administration of intravenous contrast material. Individualized dose optimization techniques were used for this CT. COMPARISON: 08/20/2017 FINDINGS: Normal soft tissue structures. Normal calvarium. There is moderate cerebral atrophy with widening of the extra-axial spaces and ventricular dilatation. There are areas of decreased attenuation within the white matter tracts of the supratentorial brain, consistent with microvascular disease changes. Normal basal ganglia and thalami. Normal brainstem. There is mild cerebellar atrophy. There is no intracranial hemorrhage. There are no findings of an acute ischemic infarction. Stable sinus mucosal disease in the right sphenoid sinus with hyperdense material and partial calcification. CT/Brain/Head without Contrast IMPRESSION: Chronic involutional changes of the brain. Electronically Signed: Rudi Easley DO at 12:04 EDT Tel , Service support ,
[2017-12-11 10:30] LABS: Absolute Lymphocyte Count 0.95 X10^3/ul (0.83-4.51); Absolute Neutrophil Count 8.7 X10^3/uL (2.0-7.7); Basophil# 0.01 X10^3/uL; Basophil% 0.1 % (0-1); Eosinophil# 0.06 X10^3/uL; Eosinophils% 0.6 % (0-5); Hematocrit 33.5 % (37-47); Hemoglobin 10.7 g/dl (12.0-15.0); Lymphocyte # 0.95 X10^3/ul (4.0); Lymphocyte % 9.5 % (19-41); Mean Corp Hgb Conc 31.9 g/gl (32-36); Mean Corpuscular Hgb 29.6 pg (27.0-32.0); Mean Corpuscular Volume 92.5 fL (81-99); Mean Platelet Vol. 11.6 fl (6.2-12.0); Monocyte# 0.22 X10^3/uL; Monocyte% 2.2 % (0-10); Neutrophil # 8.72 X10^3/uL (2.7-7.7); Neutrophil % 87.5 % (47-70); POSITIVE COUNT NO; POSITIVE DIFFERENTIAL NO; POSITIVE MORPHOLOGY NO; Platelet Count 95 K/mm3 (150-450); RBC Distribution Width CV 15.9 % (11.6-14.6); RBC Distribution Width SD 51.3 fl (35.1-43.9); Red Blood Count 3.62 M/mm3 (4.2-5.4)
[2017-12-11] MEDS: 0.9% Normal Saline 1,000 ML 150 ML IV (10:30)
[2017-12-11] MEDS: Dextrose 50%-Water 25 GM/50 ML DISP.SYRIN IV (10:30)
[2017-12-11 10:37] LABS: International Normalized Ratio 1.1; Prothrombin Time (Protime)PT. 13.9 SECONDS (11.7-14.9)
[2017-12-11 10:39] LABS: Partial Thromboplast Time 58.8 Seconds (24.1-36.2)
[2017-12-11 10:48] LABS: ALB/GLOB Ratio 0.7 RATIO (0.9-2.4); AST(SGOT) 31 U/L (15-37); Alanine Aminotransfer ALT/SGPT 18 U/L (13-56); Albumin, Serum 2.6 g/dL (3.2-5.0); Alkaline Phosphatase 146 U/L (45-117); Anion Gap 6 (5-15); BUN 35 mg/dL (7-18); BUN/Creat Ratio 25.2 RATIO (10-20); Calcium,Total 8.7 mg/dL (8.5-10.1); Chloride 99 mmol/L (98-107); Creatinine, Serum 1.39 mg/dL (0.55-1.02); EST Glomerular Filtration Rate 39 mL/min (>60); Est Glom Filt Rate - Afr Amer 47 mL/min (>60); Globulin 3.9 g/dL (2.2-4.2); Glucose 304 mg/dL (74-106); Potassium 4.2 mmol/L (3.5-5.1); Protein, Total 6.5 g/dL (6.4-8.2); Sodium Level 139 mmol/L (136-145)
[2017-12-11 10:49] LABS: Lactic Acid 0.8 mmol/L (0.4-2.0)
[2017-12-11 10:50] LABS: Mucous, Urine 0 SEEN /hpf (<or=2+); Red Blood Cells-Urine 0 SEEN /hpf (0-5); Squamous Epithelial Cells - UA 0 SEEN /hpf (5-10); White Blood Cells 0 SEEN /hpf (0-5)
[2017-12-11 10:53] LABS: Color, Urine Yellow (Yellow); Glucose, Dipstick Normal (Normal); Ketone-Dipstick Negative (Negative); Leukocyte Esterase-Dipstick Negative /ul (Negative); Nitrite-Dipstick Negative (Negative); Occult Blood-Urine Negative /ul (Negative); Protein-Dipstick Negative (Negative); Urine Bilirubin Dipstick Negative (Negative); Urine Clarity Clear (Clear); Urine Urobilinogen Normal (Normal)
[2017-12-11 11:01] LABS: Bacteria RARE /hpf (None Seen)
--- NOTE | 2017-12-11 11:23 | ED.DCSUM_ITS ---
- ER Visit Summary Date of Service: 12/11/17 Chief Complaint: Decreased level of consciousness History of Present Illness: The patient is a [address] Carbajal and Dr. Odom. Family reports that normally the patient is awake alert and able to have a normal conversation. They reports that yesterday she began having decreased level of consciousness and was able to speak and identify herself and her [id number]. However, today the patient is only grunting. They report that she is never had anything like this before. I am unable to obtain anything from the patient. Family does report she had subjective fever. They deny any cough, vomiting, or diarrhea. However they do report that she had a UTI approximately November 24 that was treated with an antibiotic the name of which they do not now. She was not hospitalized at that time. They report that she had increased tremor over the past few days. It sounds as though the patient has not been doing well for quite some time. They report that she had a 7 pound weight loss over the past 3 months. Recently they have had to stop her blood pressure medications because her blood pressures actually been low. Physical Examination: Vitals: 97.6, 122/96, 100, 16, 97% on 2 L nasal cannula. General: Well-developed, but cachectic. Head: Normocephalic atraumatic. Neck: Supple, no lymphadenopathy. No JVD. Nontender. Cardiovascular: Regular rate and rhythm. 2 out of 6 systolic murmur. Respiratory: No respiratory distress. Rhonchi bilaterally. Abdominal: Soft, nontender, nondistended, normal bowel sounds. No guarding, rebound, or peritoneal signs. Back: Nontender. Extremities: Nontender, no edema. Skin: Normal color, no rash. Neurologic: Lethargic. She opens her eyes and makes minimal attempt to withdraw to painful stimuli. Test Results: EKG is sinus at 97 with T wave inversions inferiorly as well as in leads V4 to V6. This is a change from August of this year. CBC is remarkable for an H&H 10.7 33.5, platelets of 95, segmented neutrophils 88, lymphocytes of 10. Chem-7 is marked for CO2 of 34, glucose 304, BUN 35, creatinine 1.39. Of note the patient had an Accu-Chek performed which showed her sugar to be 66 she was given an amp of D50 prior to drawing the blood. LFTs marked for an albumin 2.6 alk phos of 146. INR is 1.1. PTT is 58.8. Troponin is negative. Lactic acid is negative. CT brain shows chronic changes. Chest x-ray shows chronic changes. ABG shows pH 7.4 with a CO2 of 53.8 and bicarb of 33.5. Emergency Department Course and Treatment: Patient's Accu-Chek was 66 she was given an amp of D50 IV. This did not change her sensorium. I had a prolonged discussion with the [id number] on the she reports the patient does not want to have CPR and is unsure about intubation. I reviewed the patient's most re cent hospitalization. At that time she is able to have a conversation with the hospitalist about this and has opted for DNR Comfort Care arrest on August 26, 2017. Treatment Plan: During stay and emerge department patient did have an improvement in her sensorium. Her son has arrived and does report that he wants her DNR Comfort Care arrest. He reports that they doubled her Sinemet November 22. Reports that she is been unable to walk for the past 2 weeks because she does not have coordination her legs and that is not a strength issue. He reports this is happened with her Sinemet in the past and has held this for the past 2 days. He also reports that they placed her on Megace 3 days ago. The patient was discussed with Dr. Colon. She will be admitted to the [facility] for further motion and treatment. Disposition: Admitted in serious condition. Impression: 1. Mental status change. 2. History of Parkinson's disease. 3. DNR Comfort Care arrest. This note was generated with [employer] dictation software. It may contain incorrect words, spelling, and punctuation that were not noted in review of the chart prior to signing ED Disposition - Plan for ED Patient: Chief Complaint: Mental Status Change Referrals: Javed Carbajal DO [Primary Care Provider] -
[2017-12-11 11:56] LABS: Allen Test POS; Base Excess 9 mmol/L (-2 to +2); Bicarbonate 33.5 mmol/L (22-26); Blood Gas Specimen Type ART; O2 Delivery Device Nasal Can; PO2 73 mmHG (75-100); SITE R Radial; SO2 94 % (95-99); Time Given 1148; Total Carbon Dioxide 35 mmol/L; pCO2 53.8 mmHg (35-45)
--- NOTE | 2017-12-11 12:50 | NURSING ---
DR EDWARD FOR DR CASE
--- NOTE | 2017-12-11 12:57 | NURSING ---
PCU MENTAL STATUS CHANGE OBS PAINTSIL
--- NOTE | 2017-12-11 13:01 | HP.PCM_ITS ---
Problem List (1) Hypoglycemia Status: Acute (2) Generalized weakness Status: Acute (3) TOMMIE (acute kidney injury) Status: Acute (4) History of hypertension Status: Chronic (5) History of coronary artery stent placement Status: Chronic Comment: ADINA to RCA 05/05/2011, [facility] per Dr. Cain Gayle (6) Hypothyroidism Status: Chronic Qualifiers: Hypothyroidism type: unspecified Qualified Code(s): E03.9 - Hypothyroidism, unspecified History of Present Illness Date of Admission: 12/11/17 Chief Complaint: Altered mental status- 1 day The patient is a 82 year old F with recent diagnosis of Parkinson's disease, hypertension, hypothyroidism who recently had adjustments made to her Sinemet as well as was started on Megace. Patient has been progressively weak at home, lethargic, brought to the ED. Blood sugar was found to be 66, patient was stated to be eating well at home. Denies any nausea or vomiting no diarrhea or chest pain no dizziness. Patient was unresponsive to the ED physician, appeared to respond and open eyes spontaneously at the time went on. Vitals in the ED was 90 7.6F, blood pressure 120/96, heart rate was 99, respiratory was 18, PO2 was 98% on 3.5 L Showed RBC count of 10.2, hemoglobin 10.7, platelet 95, INR 1.1, sodium 139, potassium 4.2, chloride 99, bicarbonate 34, BUN 35, creatinine 1.39 Past Medical History Past Medical History (Chronic Problems): Chronic Problems (Last Reviewed 09/10/17 @ 11:31 by Sharon Felton) GERD (gastroesophageal reflux disease) (Chronic) History of hypertension (Chronic) History of coronary artery stent placement (Chronic 05/05/11) ADINA to RCA 05/05/2011, [facility] per Dr. Cain Gayle Atherosclerotic heart disease of [place] coronary artery without angina pectoris (Chronic) ADINA to RCA 05/05/2011, [facility] per Dr. Cain Gayle Supraventricular tachycardia (Chronic) Paroxysmal atrial tachycardia (Chronic) Non-rheumatic tricuspid valve insufficiency (Chronic) 2+ per echo 03/30/2014 Secondary pulmonary arterial hypertension (Chronic) RVSP 43 mmhg per echo 03/30/2014 Hyperlipidemia (Chronic) Chronic ulcer of back (Chronic) Hypothyroidism (Chronic) Essential (primary) hypertension (Chronic) Medical History: Medical History (Last Reviewed 12/11/17 @ 14:59 by Cathy Vazquez MD) GERD (gastroesophageal reflux disease) (Chronic) K21.9 History of hypertension (Chronic) Z86.79 Atherosclerotic heart disease of [place] coronary artery without angina pectoris (Chronic) I25.10 ADINA to RCA 05/05/2011, [facility] per Dr. Cain Gayle Supraventricular tachycardia (Chronic) I47.1 Paroxysmal atrial tachycardia (Chronic) I47.1 Non-rheumatic tricuspid valve insufficiency (Chronic) I36.1 2+ per echo 03/30/2014 Secondary pulmonary arterial hypertension (Chronic) I27.21 RVSP 43 mmhg per echo 03/30/2014 Hypotension (Acute) I95.9 Bradycardia (Acute) R00.1 Hyperlipidemia (Chronic) E78.5 Chronic ulcer of back (Chronic) L98.429 Hypothyroidism (Chronic) E03.9 Essential (primary) hypertension (Chronic) I10 Acute cystitis (Acute) N30.00 TOMMIE (acute kidney injury) N17.9 Anxiety F41.9 CKD (chronic kidney disease), stage III N18.3 Dysphagia R13.10 Protein malnutrition E46 Allergies alprazolam [From Xanax] Allergy (Verified 12/11/17 10:10) Other Sulfa (Sulfonamide Antibiotics) Allergy (Verified 12/11/17 10:10) Vomiting cigarette smoke Adverse Reaction (Intermediate, Verified 12/11/17 10:10) cough Home Medications: Ambulatory Orders Medication Instructions Recorded Acetaminophen [Pain Relief] 500 mg PO PRN 12/11/17 Albuterol IH (ProAir) [Proair Hfa 1 - 2 puff INHALATION Q4H PRN PRN 12/11/17 (SP)Vent Pts] Benzonatate 100 mg PO PRN PRN 12/11/17 Buspirone HCl 7.5 mg PO BID 12/11/17 Carbidopa/Levodopa 50/200 [Sinemet 1 tablet PO BIDAC 12/11/17 CR] Fluticasone 0.05% [Flonase Nasal 2 spray NASAL DAILY PRN 12/11/17 [place]] Furosemide [Lasix] 20 mg PO DAILY 12/11/17 Gabapentin [Neurontin] 400 mg PO TID 12/11/17 Ipratropium Trinity [Atrovent Hfa] 12.9 gm IH PRN PRN 12/11/17 Levothyroxine [Synthroid] 50 mcg PO DAILY 12/11/17 Loperamide HCl [Anti-Diarrheal] 2 mg PO PRN PRN 12/11/17 Ondansetron HCl [Zofran] 4 mg PO Q4H PRN PRN 12/11/17 Pantoprazole Sodium [Protonix] 40 mg PO BID 12/11/17 Pravastatin Sodium [Pravachol] 10 mg PO DAILY 12/11/17 Surgical History: Surgical History (Last Reviewed 09/10/17 @ 11:31 by Sharon Felton) History of coronary artery stent placement (Chronic) Onset Date: 05/05/11 Z95.5 ADINA to RCA 05/05/2011, [facility] per Dr. 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: No pertinent STOCK LAYER history Lives: With Family Smoking Status: Former smoker Tobacco Use: Non-smoker Alcohol: None Drugs: None - *Family History Paternal Family History: Family History (Last Reviewed 09/10/17 @ 11:31 by Sharon Felton) Mother CVA (cerebral vascular accident) Sister CVA (cerebral vascular accident) CAD (coronary artery disease) History Items: No pertinent history Maternal Family History: Family History (Last Reviewed 09/10/17 @ 11:31 by Sharon Felton) Mother CVA (cerebral vascular accident) Sister CVA (cerebral vascular accident) CAD (coronary artery disease) History Items: - - CVA Review of Systems Unable to obtain accurate/complete ROS d/t: Patient is very lethargic VTE Information - Inpt Only VTE Present on Admission: No VTE Pharm Prophylaxis ordered?: Yes Patient Problems: Active and Suspected Problems (Last Reviewed 09/10/17 @ 11:31 by Sharon Felton) Hypoglycemia (Acute) - Physical Exam General: Alert, Oriented x3, Cooperative, No apparent distress HEENT: Atraumatic, PERRLA, EOMI, Normocephalic Neck: Supple, No JVD, Negative Carotid Bruits Lungs: Clear to auscultation, Normal air movement Cardiovascular: Regular rate, No murmurs Abdomen: Bowel Sounds Present, Soft, Non Tender Extremities: No edema, Capillary Refill Less than 3 Seconds Skin: No rashes, No breakdown Musculoskeletal: No Tenderness to Palpation of Joints or Extremities Neurological: Cranial nerves II-XII grossly intact Psych/Mental Status: Normal Affect, Appropriate Vital Signs Temp Pulse Resp BP Pulse Ox 94.9 F L 91 16 126/76 H 95 12/11/17 10:43 12/11/17 12:09 12/11/17 12:09 12/11/17 12:09 12/11/17 12:09 Oxygen Flow Rate (L/min) 3.5 Oxygen Delivery Method Room Air Weight: 56.1 kg Body Mass Index (BMI) 24.1 Finger Stick Blood Glucose 66 Laboratory Tests Past 24 Hrs 12/11/17 12/11/17 12/11/17 10:10 10:10 10:10 WBC 10.0 RBC 3.62 L Hgb 10.7 L Hct 33.5 L MCV 92.5 MCH 29.6 MCHC 31.9 L RDW 15.9 H RDW Differential 51.3 H Plt Count 95 L MPV 11.6 Immature Gran % (Auto) 0.100 Neut % (Auto) 87.5 H Lymph % (Auto) 9.5 L [place] % (Auto) 2.2 Eos % (Auto) 0.6 Baso % (Auto) 0.1 Absolute Neuts (auto) 8.7 H Absolute Lymphs (auto) 0.95 Total Counted Not Reportable PT 13.9 INR 1.1 APTT 58.8 H Specimen Type Sample Site pH Bicarbonate Actual POC Total CO2 Base Excess O2 Saturation ABG pCO2 ABG pO2 Michele Test O2 Delivery Device Liter Flow Blood Gas Notified Whom Blood Gas Notified Time Sodium 139 Potassium 4.2 Chloride 99 Carbon Dioxide 34.0 H Anion Gap 6 BUN 35 H Creatinine 1.39 H Estim Creat Clear Calc 22.80 Est GFR (MDRD) Af Amer 47 L Est GFR (MDRD) Non-Af 39 L BUN/Creatinine Ratio 25.2 H Glucose 304 H Lactic Acid Calcium 8.7 Total Bilirubin 0.50 AST 31 ALT 18 Alkaline Phosphatase 146 H Troponin I < 0.015 Total Protein 6.5 Albumin 2.6 L Globulin 3.9 Albumin/Globulin Ratio 0.7 L Urine Color Urine Clarity Urine pH Ur Specific Jachin Urine Protein Urine Glucose (UA) Urine Ketones Urine Occult Blood Urine Nitrite Urine Bilirubin Urine Urobilinogen Ur Leukocyte Esterase Urine RBC Urine WBC Ur Squamous Epith Cells Urine Bacteria Urine Mucus 12/11/17 12/11/17 12/11/17 10:10 10:40 11:52 WBC RBC Hgb Hct MCV MCH MCHC RDW RDW Differential Plt Count MPV Immature Gran % (Auto) Neut % (Auto) Lymph % (Auto) [place] % (Auto) Eos % (Auto) Baso % (Auto) Absolute Neuts (auto) Absolute Lymphs (auto) Total Counted PT INR APTT Specimen Type ART Sample Site R Radial pH 7.40 Bicarbonate Actual 33.5 H POC Total CO2 35 Base Excess 9 H O2 Saturation 94 L ABG pCO2 53.8 H ABG pO2 73 L Michele Test POS O2 Delivery Device Nasal Can Liter Flow 4.0 Blood Gas Notified Whom ED Blood Gas Notified Time 1148 Sodium Potassium Chloride Carbon Dioxide Anion Gap BUN Creatinine Estim Creat Clear Calc Est GFR (MDRD) Af Amer Est GFR (MDRD) Non-Af BUN/Creatinine Ratio Glucose Lactic Acid 0.8 Calcium Total Bilirubin AST ALT Alkaline Phosphatase Troponin I Total Protein Albumin Globulin Albumin/Globulin Ratio Urine Color Yellow Urine Clarity Clear Urine pH 8.0 Ur Specific J[place] 1.010 Urine Protein Negative Urine Glucose (UA) Normal Urine Ketones Negative Urine Occult Blood Negative Urine Nitrite Negative Urine Bilirubin Negative Urine Urobilinogen Normal Ur Leukocyte Esterase Negative Urine RBC 0 SEEN Urine WBC 0 SEEN Ur Squamous Epith Cells 0 SEEN Urine Bacteria RARE Urine Mucus 0 SEEN Assessment/Plan All Active Problems (Last Reviewed 09/10/17 @ 11:31 by Sharon Felton) Generalized weakness (Acute) Aspiration pneumonia (Acute) TOMMIE (acute kidney injury) (Acute) Failure to thrive (Acute) Hypoglycemia (Acute) Hypotension (Acute) Bradycardia (Acute) Acute cystitis (Acute) 82 year old F with recent diagnosis of Parkinson's disease, hypertension, hypothyroidism who recently had adjustments made to her Sinemet as well as was started on Megace. 1. Altered mental status, likely medication related/hypoglycemia, CT of the brain was negative, ABG unremarkable Plan: Admit to PCU, IV fluids, Sinemet and Megace, strict I's and O's, monitor symptomatically, check TSH 2. Acute kidney injury to dehydration, continue IV fluids, BMP in a.m. 3. Parkinson's disease, on Sinemet, neurology consult to help with medication adjustment 4. Hypothyroidism, on levothyroxine 5. Chronic pain syndrome, meds adjusted, may need to have gabapentin resumed slowly 6. CAD status post stent, on pravastatin, not on aspirin 7. DVT prophylaxis with heparin SC Code Visit Inpatient E&M: 97433 Init Hosp L3
[2017-12-11 14:27] LABS: Thyroid Stim Hormone (TSH) 0.67 uIU/mL (0.358-3.74)
[2017-12-11] MEDS: Dextrose 5%/0.9% NaCl 1,000 ML 100 ML IV (15:41)
[2017-12-11] MEDS: Heparin Injection (Vial) 5,000 UNIT/ML VIAL 5000 UNIT SC ×2 (15:48→20:58)
--- NOTE | 2017-12-11 16:04 | PCM.CONS.GEN ---
Problem List (1) Encephalopathy Status: Acute Reason for Consult Date of Consultation: 12/11/17 Reason for Consultation: Encephalopathy History of Present Illness: The patient is a 82 year old CF with PMH HTN, HLD, PD on Sinemet, CAD s/p stents, hypothyroidism, anxiety admitted with AMS. History could not be obtained from patient and is obtained from medical records and documentation. Per documentation since yesterday (12/10/17) patient has had decrease level of consciousness, was lethargic and prior to that she was awake and alert and was able to carry on normal conversation. In the ED blood sugar was 66, patient was given D50. Per nurse taking care of the patient she follows with Dr. Ellis for PD, is on Sinemet for the same. Per documentation patient recently had UTI and was treated with antibiotic. No documented nausea/vomiting, diarrhea, focal motor weakness, sensory loss, MELGOZA, dizziness or visual disturbances. On admission Hb 10.7, Plt 95, WBC-10, creatinine 1.39, Na-139, glucose 66, UA-neg. Past Medical History Past Medical History (Chronic Problems): Chronic Problems (Last Reviewed 12/11/17 @ 14:59 by Cathy Vazquez MD) GERD (gastroesophageal reflux disease) (Chronic) History of hypertension (Chronic) History of coronary artery stent placement (Chronic 05/05/11) ADINA to RCA 05/05/2011, [facility] per Dr. Cain Gayle Atherosclerotic heart disease of [place] coronary artery without angina pectoris (Chronic) ADINA to RCA 05/05/2011, [facility] per Dr. Cain Gayle Supraventricular tachycardia (Chronic) Paroxysmal atrial tachycardia (Chronic) Non-rheumatic tricuspid valve insufficiency (Chronic) 2+ per echo 03/30/2014 Secondary pulmonary arterial hypertension (Chronic) RVSP 43 mmhg per echo 03/30/2014 Hyperlipidemia (Chronic) Chronic ulcer of back (Chronic) Hypothyroidism (Chronic) Essential (primary) hypertension (Chronic) Medical History: Medical History (Last Reviewed 12/11/17 @ 14:59 by Cathy Vazquez MD) GERD (gastroesophageal reflux disease) (Chronic) K21.9 History of hypertension (Chronic) Z86.79 Atherosclerotic heart disease of [place] coronary artery without angina pectoris (Chronic) I25.10 ADINA to RCA 05/05/2011, [facility] per Dr. Cain Gayle Supraventricular tachycardia (Chronic) I47.1 Paroxysmal atrial tachycardia (Chronic) I47.1 Non-rheumatic tricuspid valve insufficiency (Chronic) I36.1 2+ per echo 03/30/2014 Secondary pulmonary arterial hypertension (Chronic) I27.21 RVSP 43 mmhg per echo 03/30/2014 Hypotension (Acute) I95.9 Bradycardia (Acute) R00.1 Hyperlipidemia (Chronic) E78.5 Chronic ulcer of back (Chronic) L98.429 Hypothyroidism (Chronic) E03.9 Essential (primary) hypertension (Chronic) I10 Acute cystitis (Acute) N30.00 TOMMIE (acute kidney injury) N17.9 Anxiety F41.9 CKD (chronic kidney disease), stage III N18.3 Dysphagia R13.10 Protein malnutrition E46 Allergies alprazolam [From Xanax] Allergy (Verified 12/11/17 10:10) Other Sulfa (Sulfonamide Antibiotics) Allergy (Verified 12/11/17 10:10) Vomiting cigarette smoke Adverse Reaction (Intermediate, Verified 12/11/17 10:10) cough Home Medications: Ambulatory Orders Medication Instructions Recorded Acetaminophen [Pain Relief] 500 mg PO PRN 12/11/17 Albuterol IH (ProAir) [Proair Hfa 1 - 2 puff INHALATION Q4H PRN PRN 12/11/17 (SP)Vent Pts] Benzonatate 100 mg PO PRN PRN 12/11/17 Buspirone HCl 7.5 mg PO BID 12/11/17 Carbidopa/Levodopa 50/200 [Sinemet 1 tablet PO BIDAC 12/11/17 CR] Fluticasone 0.05% [Flonase Nasal 2 spray NASAL DAILY PRN 12/11/17 [place]gan] Furosemide [Lasix] 20 mg PO DAILY 12/11/17 Gabapentin [Neurontin] 400 mg PO TID 12/11/17 Ipratropium [place] [Atrovent Hfa] 12.9 gm IH PRN PRN 12/11/17 Levothyroxine [Synthroid] 50 mcg PO DAILY 12/11/17 Loperamide HCl [Anti-Diarrheal] 2 mg PO PRN PRN 12/11/17 Ondansetron HCl [Zofran] 4 mg PO Q4H PRN PRN 12/11/17 Pantoprazole Sodium [Protonix] 40 mg PO BID 11/03/18 Pravastatin Sodium [Pravachol] 10 mg PO DAILY 12/11/17 Surgical History: Surgical History (Last Reviewed 09/10/17 @ 11:31 by Sharon Felton) History of coronary artery stent placement (Chronic) Onset Date: 05/05/11 Z95.5 ADINA to RCA 05/05/2011, [facility] per Dr. 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 Lives: With Family Smoking Status: Former smoker Tobacco Use: Non-smoker Alcohol: None Drugs: None - *Family History Paternal Family History: Family History (Last Reviewed 09/10/17 @ 11:31 by Sharon Felton) Mother CVA (cerebral vascular accident) Sister CVA (cerebral vascular accident) CAD (coronary artery disease) History Items: No pertinent history Maternal Family History: Family History (Last Reviewed 09/10/17 @ 11:31 by Sharon Felton) Mother CVA (cerebral vascular accident) Sister CVA (cerebral vascular accident) CAD (coronary artery disease) History Items: - - CVA Review of Systems Constitutional: Reports: - - complete ROS could not be obtained due to AMS Patient Problems: Active and Suspected Problems (Last Reviewed 12/11/17 @ 14:59 by Cathy Vazquez MD) Hypoglycemia (Acute) Encephalopathy (Acute) - Physical Exam General: - - AoAx 1, drowsy and lethargic HEENT: Normocephalic Neck: Supple Lungs: Normal air movement Cardiovascular: Normal S1, Normal S2 Abdomen: Bowel Sounds Present Extremities: No cyanosis Neurological: - - droswy, lethargic, AoAx1, CN 2-12 grossly intact, moves all 4 extremities, tone normal B/L UE, resting tremors present, denies any sensory loss, no cerebellar signs, gait deferred, Reflexes + B/L B/S/T/K/A, limited neurology examination Vital Signs Temp Pulse Resp BP Pulse Ox 95.2 F L 106 H 16 116/56 L 93 12/11/17 16:00 12/11/17 16:00 12/11/17 16:00 12/11/17 16:00 12/11/17 16:00 Oxygen Flow Rate (L/min) 5 Oxygen Delivery Method Nasal Cannula Weight: 52.617 kg Body Mass Index (BMI) 25.9 Finger Stick Blood Glucose 66 Laboratory Tests Past 24 Hrs 12/11/17 12/11/17 12/11/17 10:10 10:10 10:10 WBC 10.0 RBC 3.62 L Hgb 10.7 L Hct 33.5 L MCV 92.5 MCH 29.6 MCHC 31.9 L RDW 15.9 H RDW Differential 51.3 H Plt Count 95 L MPV 11.6 Immature Gran % (Auto) 0.100 Neut % (Auto) 87.5 H Lymph % (Auto) 9.5 L [place] % (Auto) 2.2 Eos % (Auto) 0.6 Baso % (Auto) 0.1 Absolute Neuts (auto) 8.7 H Absolute Lymphs (auto) 0.95 Total Counted Not Reportable PT 13.9 INR 1.1 APTT 58.8 H Specimen Type Sample Site pH Bicarbonate Actual POC Total CO2 Base Excess O2 Saturation ABG pCO2 ABG pO2 Michele Test O2 Delivery Device Liter Flow Blood Gas Notified Whom Blood Gas Notified Time Sodium 139 Potassium 4.2 Chloride 99 Carbon Dioxide 34.0 H Anion Gap 6 BUN 35 H Creatinine 1.39 H Estim Creat Clear Calc 22.80 Est GFR (MDRD) Af Amer 47 L Est GFR (MDRD) Non-Af 39 L BUN/Creatinine Ratio 25.2 H Glucose 304 H Lactic Acid Calcium 8.7 Total Bilirubin 0.50 AST 31 ALT 18 Alkaline Phosphatase 146 H Troponin I < 0.015 Total Protein 6.5 Albumin 2.6 L Globulin 3.9 Albumin/Globulin Ratio 0.7 L TSH Urine Color Urine Clarity Urine pH Ur Specific Leroy Urine Protein Urine Glucose (UA) Urine Ketones Urine Occult Blood Urine Nitrite Urine Bilirubin Urine Urobilinogen Ur Leukocyte Esterase Urine RBC Urine WBC Ur Squamous Epith Cells Urine Bacteria Urine Mucus 12/11/17 12/11/17 12/11/17 10:10 10:10 10:40 WBC RBC Hgb Hct MCV MCH MCHC RDW RDW Differential Plt Count MPV Immature Gran % (Auto) Neut % (Auto) Lymph % (Auto) [place] % (Auto) Eos % (Auto) Baso % (Auto) Absolute Neuts (auto) Absolute Lymphs (auto) Total Counted PT INR APTT Specimen Type Sample Site pH Bicarbonate Actual POC Total CO2 Base Excess O2 Saturation ABG pCO2 ABG pO2 Michele Test O2 Delivery Device Liter Flow Blood Gas Notified Whom Blood Gas Notified Time Sodium Potassium Chloride Carbon Dioxide Anion Gap BUN Creatinine Estim Creat Clear Calc Est GFR (MDRD) Af Amer Est GFR (MDRD) Non-Af BUN/Creatinine Ratio Glucose Lactic Acid 0.8 Calcium Total Bilirubin AST ALT Alkaline Phosphatase Troponin I Total Protein Albumin Globulin Albumin/Globulin Ratio TSH 0.67 Urine Color Yellow Urine Clarity Clear Urine pH 8.0 Ur Specific Leroy 1.010 Urine Protein Negative Urine Glucose (UA) Normal Urine Ketones Negative Urine Occult Blood Negative Urine Nitrite Negative Urine Bilirubin Negative Urine Urobilinogen Normal Ur Leukocyte Esterase Negative Urine RBC 0 SEEN Urine WBC 0 SEEN Ur Squamous Epith Cells 0 SEEN Urine Bacteria RARE Urine Mucus 0 SEEN 12/11/17 11:52 WBC RBC Hgb Hct MCV MCH MCHC RDW RDW Differential Plt Count MPV Immature Gran % (Auto) Neut % (Auto) Lymph % (Auto) [place] % (Auto) Eos % (Auto) Baso % (Auto) Absolute Neuts (auto) Absolute Lymphs (auto) Total Counted PT INR APTT Specimen Type ART Sample Site R Radial pH 7.40 Bicarbonate Actual 33.5 H POC Total CO2 35 Base Excess 9 H O2 Saturation 94 L ABG pCO2 53.8 H ABG pO2 73 L Michele Test POS O2 Delivery Device Nasal Can Liter Flow 4.0 Blood Gas Notified Whom ED Blood Gas Notified Time 1148 Sodium Potassium Chloride Carbon Dioxide Anion Gap BUN Creatinine Estim Creat Clear Calc Est GFR (MDRD) Af Amer Est GFR (MDRD) Non-Af BUN/Creatinine Ratio Glucose Lactic Acid Calcium Total Bilirubin AST ALT Alkaline Phosphatase Troponin I Total Protein Albumin Globulin Albumin/Globulin Ratio TSH Urine Color Urine Clarity Urine pH Ur Specific [place] Urine Protein Urine Glucose (UA) Urine Ketones Urine Occult Blood Urine Nitrite Urine Bilirubin Urine Urobilinogen Ur Leukocyte Esterase Urine RBC Urine WBC Ur Squamous Epith Cells Urine Bacteria Urine Mucus Assessment/Plan All Active Problems (Last Reviewed 12/11/17 @ 14:59 by Cathy Vazquez MD) Generalized weakness (Acute) Aspiration pneumonia (Acute) TOMMIE (acute kidney injury) (Acute) Failure to thrive (Acute) Hypoglycemia (Acute) Encephalopathy (Acute) Hypotension (Acute) Bradycardia (Acute) Acute cystitis (Acute) The patient is a 82 year old CF with PMH HTN, HLD, PD on Sinemet, CAD s/p stents, hypothyroidism. anxiety admitted with AMS. History could not be obtained from patient and is obtained from medical records and documentation. Per documentation since yesterday (12/10/17) patient has had decrease level of consciousness, was lethargic and prior to that she was awake and alert and was able to carry on normal conversation. In the ED blood sugar was 66, patient was given D50. Per nurse taking care of the patient she follows with Dr. Ellis for PD, is on Sinemet for the same. Per documentation patient recently had UTI and was treated with antibiotic. No documented nausea/vomiting, diarrhea, focal motor weakness, sensory loss, MELGOZA, dizziness or visual disturbances. On admission Hb 10.7, Plt 95, WBC-10, creatinine 1.39, Na-139, glucose 66, UA-neg. Impression AMS Metabolic Encephalopathy PD Failure to thrive, hypoglycemia Plan -Check MRI brain w/o contrast -Labs reviewed -CT head-nothing acute -On Sinemet 50/200 mg PO BID. Continue home dose. Per documentation her Sinemet dose was recently adjusted -Avoid dehydration and avoid hypotension -PT/OT and ST -GI/DVT prophylaxis -Further medical management per hospitalist -Fall precautions -Please follow up with her Neurologist Dr. Ellis in 4-6 weeks as outpatient -Thank you for allowing us to participate in patient's care and management Code Visit Inpatient E&M: [id number] Init Hosp L3
[2017-12-11 16:26] LABS: Bedside Glucose 103 mg/dL (70-110)
[2017-12-11 16:26] LABS: Bedside Glucose 66 mg/dL (70-110)
--- NOTE | 2017-12-11 17:51 | EKG12_ITS ---
Test Reason : RHYTHM CHANGE Blood Pressure : / mmHG Vent. Rate : 120 BPM Atrial Rate : 120 BPM P-R Int : 178 ms QRS Dur : 106 ms QT Int : 312 ms P-R-T Axes : 078 072 221 degrees QTc Int : [address] & T wave abnormality, consider inferolateral ischemia Abnormal ECG When compared with ECG of 11-DEC-2017 09:59, MANUAL COMPARISON REQUIRED, DATA IS UNCONFIRMED Confirmed by RADHA RIVAS, STEVE ([id number]), newspaper editor FLYNN PATRICIO ([id number]) on 12/16/2017 4:06:53 PM Referred By: WAGNER Confirmed By:STEVE GARCIA MD
--- NOTE | 2017-12-11 17:52 | RAD_ITS ---
STUDY: X-RAY CHEST REASON FOR EXAM: Female, 82 years old. Shortness of breath. TECHNIQUE: Single frontal view of the chest. COMPARISON: December 11, 2017 FINDINGS: The lungs are hyperexpanded. There is a new opacity in the right base medially compatible with pneumonia. There is no demonstrated pleural abnormality. There is cardiomegaly unchanged. Normal mediastinum and crescencio. Normal visualized pulmonary arteries. There is atherosclerotic calcification of the aortic arch with tortuosity. Normal visualized thoracic spine. Normal visualized ribs, clavicles, and shoulders. There is no demonstrated abnormality of the visualized soft tissue structures of the upper abdomen. RAD/Chest 1 View (Portable) IMPRESSION: Stable cardiomegaly with hyperexpansion. New right basilar opacity compatible with pneumonia. Electronically Signed: Kevin Goldberg MD at 19:23 EDT , Service support ,
[2017-12-11 18:11] LABS: Bedside Glucose 104 mg/dL (70-110)
[2017-12-11] MEDS: Ceftriaxone 1 GM/50 ML BAG IV (20:58)
[2017-12-11 22:12] LABS: M R Staph aureus DNA By PCR Negative (Negative); Probe Check PASS; Specimen Processing Control PASS
[2017-12-12] VITALS (17 sets, daily range): BP systolic 101–187; BP diastolic 60–92; PULSE 110–141; RESP 16–18; TEMP 36.7–37.6; O2SAT 95–99
[2017-12-12] MEDS: Dextrose 5%/0.9% NaCl 1,000 ML 75 ML IV (01:24)
[2017-12-12 01:36] LABS: Bedside Glucose 109 mg/dL (70-110)
[2017-12-12] MEDS: Heparin Injection (Vial) 5,000 UNIT/ML VIAL 5000 UNIT SC ×3 (05:34→21:05)
[2017-12-12] MEDS: hydrALAZINE 20 MG/ML Vial 5 MG IV (05:36)
[2017-12-12 06:28] LABS: Anion Gap 8 (5-15); BUN 21 mg/dL (7-18); BUN/Creat Ratio 18.4 RATIO (10-20); Calcium,Total 8.9 mg/dL (8.5-10.1); Chloride 112 mmol/L (98-107); Creatinine, Serum 1.14 mg/dL (0.55-1.02); EST Glomerular Filtration Rate 49 mL/min (>60); Est Glom Filt Rate - Afr Amer 59 mL/min (>60); Estimated Creatinine Clearance 32.15 ml/min; Glucose 108 mg/dL (74-106); Potassium 4.1 mmol/L (3.5-5.1); Sodium Level 148 mmol/L (136-145)
[2017-12-12 07:05] LABS: Bedside Glucose 96 mg/dL (70-110)
--- NOTE | 2017-12-12 08:00 | NURSING ---
attempted to feed the patient, as she is awake and alert this am. gave her one teaspoon full of water into her mouth and pt did not make any attempt to swallow the water, it ran right back out the sides of her mouth. Pt kept NPO.
--- NOTE | 2017-12-12 08:32 | MRI_ITS ---
STUDY: MRI BRAIN WITHOUT CONTRAST REASON FOR EXAM: Female, 82 years old. Unresponsive, altered mental status TECHNIQUE: Standardized multiplanar fat and water weighted pulse sequences were obtained. COMPARISON: Brain MRI of 03/25/2017 FINDINGS: Normal size of the ventricles and extra-axial spaces for the patient's age. There are a limited number of small white matter hyperintensities, distributed throughout the deep white matter tracts of the cerebral hemispheres, consistent with mild chronic white matter ischemic changes. Normal bilateral basal ganglia. Normal thalami. There is no extra-axial fluid accumulation. Normal flow voids within the major intracranial circulation suggesting patency by spin echo criteria. Normal sella turcica, pituitary gland, infundibular stalk, optic chiasm and hypothalamus. Normal tectal plate and pineal gland. Normal midbrain, ammy and medulla. Normal cerebellum. Normal basal cisterns. Normal bilateral temporal bones. Normal bilateral internal auditory canals. The left vertebral artery is dominant. No demonstrated orbital abnormality, within the constraints of a routine brain study. Chronic mucoperiosteal thickening of the right sphenoid sinus. Normal calvarium and skull base. There is mild fluid in the right mastoid air cells. Normal visualized soft tissue structures. Normal visualized upper cervical spine. MRI/Brain without Contrast IMPRESSION: 1. No intracranial hemorrhage or acute infarction. 2. Minimal white matter changes compatible with chronic small vessel disease. 3. Chronic right sphenoid sinusitis, worse since prior study. 4. Right mastoiditis, new since prior study. Electronically Signed: Henry Bashir MD at 16:34 EST , Service support ,
[2017-12-12] MEDS: Haloperidol Lactate 5 MG/ML Vial 2 MG IV (10:08)
--- NOTE | 2017-12-12 11:28 | PCM.PN.HOSP ---
Patient Problems: Active and Suspected Problems (Last Reviewed 12/11/17 @ 14:59 by Cathy Vazquez MD) Hypoglycemia (Acute) Encephalopathy (Acute) Subjective: Patient was seen and examined. Patient is hyperactive today, delirious, oriented to self. Will be getting MRI brain. Sitter at the bedside. Objective: Physical Exam General: Alert, confused, cooperative, no apparent distress HEENT: Atraumatic, PERRLA, EOMI, Normocephalic Neck: Supple, No JVD, Negative Carotid Bruits Lungs: Clear to auscultation, Normal air movement Cardiovascular: Regular rate, No murmurs Abdomen: Bowel Sounds Present, Soft, Non Tender, jung catheter has pale yellow urine Extremities: No edema, Capillary Refill Less than 3 Seconds Skin: No rashes, No breakdown Musculoskeletal: No Tenderness to Palpation of Joints or Extremities Neurological: Cranial nerves II-XII grossly intact Psych/Mental Status: Normal Affect, Appropriate Vitals/I&O's: Vital Signs Temp Pulse Resp BP Pulse Ox 98.8 F 120 H 18 140/60 H 96 12/12/17 08:17 12/12/17 08:17 12/12/17 09:59 12/12/17 08:17 12/12/17 08:17 Oxygen Flow Rate (L/min) 6 Oxygen Delivery Method Nasal Cannula Weight: 52.617 kg Body Mass Index (BMI) 25.9 Finger Stick Blood Glucose 66 Intake and Output for Last 24 Hours 12/10/17 12/11/17 12/12/17 23:59 23:59 22:59 Intake Total 336 / 336 1241 / 1241 Output Total 1125 / 1125 550 / 550 Balance -789 / -789 691 / 691 Laboratory Results 12/11/17 10:10: TSH 0.67 12/11/17 14:06: POC Glucose 66 L 12/11/17 16:06: POC Glucose 103 12/11/17 17:59: POC Glucose 104 12/11/17 20:10: MRSA (PCR) Negative 12/12/17 01:32 EST: POC Glucose 109 12/12/17 05:45: POC Glucose 96 12/12/17 05:48: Sodium 148 H, Potassium 4.1, Chloride 112 H, Carbon Dioxide 28.0, Anion Gap 8, BUN 21 H, Creatinine 1.14 H, Estim Creat Clear Calc 32.15, Est GFR (MDRD) Af Amer 59 L, Est GFR (MDRD) Non-Af 49 L, BUN/Creatinine Ratio 18.4, Glucose 108 H, Calcium 8.9 Current Medications Acetaminophen (Tylenol) 650 mg PO Q6H PRN PRN PRN Reason: Mild Pain (1-3)/Temp > 100.7 F Amlodipine Besylate (Norvasc) 5 mg PO DAILY [facility] Last Admin: 12/12/17 08:08 Dose: Not Given Artificial Tears (Tears Naturale, Artificial Tears) 2 drop OPHTHALMIC Q4H PRN PRN Reason: DRY EYES Last Admin: 12/12/17 05:37 Dose: 2 drop Bisacodyl (Dulcolax) 5 mg PO DAILY PRN PRN PRN Reason: Constipation Dextrose (D50w Syringe) 0 gm IV X1 PRN; Protocol PRN Reason: Hypoglycemia Fluticasone Propionate (Flonase Nasal [place]) 2 spray NASAL DAILY [facility] Last Admin: 12/12/17 08:08 Dose: Not Given Glucagon () 1 mg IM .X1 PRN PRN Reason: Hypoglycemia Heparin Sodium (Porcine) (Heparin Na) 5,000 unit SC Q8 [facility] Last Admin: 12/12/17 05:34 Dose: 5,000 unit Hydralazine HCl (Apresoline Iv) 5 mg IV Q6H PRN PRN PRN Reason: BLOOD PRESSURE Last Admin: 12/12/17 05:36 Dose: 5 mg Azithromycin 500 mg/ Dextrose 255 mls @ 250 mls/hr IV Q24@2200 [facility] Last Admin: 12/11/17 21:47 Dose: 250 mls/hr Ceftriaxone Sodium (Rocephin) 1 gm in 50 mls @ 100 mls/hr IV Q24@2200 [facility] Last Admin: 12/11/17 20:58 Dose: 100 mls/hr Dextrose () 1,000 mls @ 100 mls/hr IV .Q10H [facility] Last Admin: 12/12/17 08:07 Dose: 100 mls/hr Levothyroxine Sodium (Synthroid) 50 mcg PO DAILY@0600 [facility] Last Admin: 12/12/17 05:34 Dose: Not Given Magnesium Hydroxide (Milk Of Magnesia) 30 ml PO DAILY PRN PRN Reason: Constipation Pantoprazole Sodium (Protonix) 40 mg PO BID [facility] Last Admin: 12/12/17 08:08 Dose: Not Given Pravastatin Sodium (Pravachol) 10 mg PO QHS [facility] Last Admin: 12/11/17 20:58 Dose: Not Given Psyllium Hydrophilic Mucilloid (Metamucil) 1 packet PO DAILY PRN PRN PRN Reason: CONSTIPATION Sodium Chloride () 5 - 30 ml IV UD PRN PRN Reason: SALINE FLUSH Medical Necessity - Tobacco Use Smoking Status: Former smoker Tobacco Use: Non-smoker Assessment/Plan All Active Problems (Last Reviewed 12/11/17 @ 14:59 by Cathy Vazquez MD) Generalized weakness (Acute) Aspiration pneumonia (Acute) TOMMIE (acute kidney injury) (Acute) Failure to thrive (Acute) Hypoglycemia (Acute) Encephalopathy (Acute) Hypotension (Acute) Bradycardia (Acute) Acute cystitis (Acute) 82 year old F with recent diagnosis of Parkinson's disease, hypertension, hypothyroidism who recently had adjustments made to her Sinemet as well as was started on Megace. 1. Acute metabolic encephalopathy/delirium, likely medication related/hypoglycemia, CT of the brain was negative, ABG unremarkable MRI brain pending, neurology consulted, cannot resume Sinemet because she failed bedside swallow evaluation 2. Dysphagia, anginal, related to acute metabolic encephalopathy/acute delirium, speech therapy consulted 3. Hyponatremia secondary to dehydration, will switch to D5 water, continue to trend 4. Acute kidney injury to dehydration, improving , continue IV fluids, BMP in a.m. 5. Parkinson's disease, cannot receive Sinemet because of dysphagia, resume when dysphagia improves 6. Hypothyroidism, on levothyroxine 7. Chronic pain syndrome, meds adjusted, may need to have gabapentin resumed slowly 8. CAD status post stent, on pravastatin, not on aspirin 9. DVT prophylaxis with heparin SC Code Visit Inpatient E&M: [id number] Subs Hosp L2
[2017-12-12 12:30] LABS: Bedside Glucose 86 mg/dL (70-110)
[2017-12-12 14:19] LABS: Anion Gap 6 (5-15); BUN 19 mg/dL (7-18); BUN/Creat Ratio 16.5 RATIO (10-20); Calcium,Total 9.3 mg/dL (8.5-10.1); Chloride 112 mmol/L (98-107); Creatinine, Serum 1.15 mg/dL (0.55-1.02); EST Glomerular Filtration Rate 48 mL/min (>60); Est Glom Filt Rate - Afr Amer 58 mL/min (>60); Estimated Creatinine Clearance 31.86 ml/min; Glucose 101 mg/dL (74-106); Potassium 4.2 mmol/L (3.5-5.1); Sodium Level 148 mmol/L (136-145)
[2017-12-12 15:11] LABS: Bedside Glucose 108 mg/dL (70-110)
--- NOTE | 2017-12-12 16:52 | RAD_ITS ---
STUDY: X-RAY CHEST REASON FOR EXAM: Female, 82 years old. Dyspnea. Shortness of breath. TECHNIQUE: Single frontal view of the chest. COMPARISON: December 11, 2017 FINDINGS: There is stable hyperexpansion with a diffuse interstitial pattern. The patchy opacity at the right base medially has decreased in density. There is no demonstrated pleural abnormality. There is stable cardiomegaly. Normal mediastinum and crescencio. Normal visualized pulmonary arteries. There is atherosclerotic calcification of the aortic arch with tortuosity. Normal visualized thoracic spine. Normal visualized ribs, clavicles, and shoulders. There is no demonstrated abnormality of the visualized soft tissue structures of the upper abdomen. RAD/Chest 1 View (Portable) IMPRESSION: Stable hyperexpansion with slight decrease in density of the right base. No acute pathology. Electronically Signed: Kevin Goldberg MD at 17:19 EST , Service support ,
--- NOTE | 2017-12-12 17:17 | NURSING ---
Dr Vazquez called and notified that the patients lungs are sounding increasingly wet, and she appears very flushed in the face and remains very agitated and restless, pulling at lines. family has been at the bedside off and on today, but are gone at this time. staff has been almost constantly redirecting the patient, attempting to distract her and reorient without success. pt has a very moist cough and has jenifer infrequently been able to cough up some yellow phlegm which had to be suctioned from her mouth. pt has been kept NPO. vitals obtained, blood sugar obtain. see flow records. Dr Deluna came to see the patient and did assess her. gave a verbal order to stop the IV fluids. will monitor. tele monitor and alarms on showing Sinus tach at 110-120.
[2017-12-12 17:22] LABS: Absolute Lymphocyte Count 1.21 X10^3/ul (0.83-4.51); Basophil# 0.01 X10^3/uL; Basophil% 0.1 % (0-1); Eosinophil# 0.03 X10^3/uL; Eosinophils% 0.2 % (0-5); Hematocrit 30.7 % (37-47); Hemoglobin 9.7 g/dl (12.0-15.0); Lymphocyte # 1.21 X10^3/ul (4.0); Lymphocyte % 9.5 % (19-41); Mean Corp Hgb Conc 31.6 g/gl (32-36); Mean Corpuscular Hgb 29.1 pg (27.0-32.0); Mean Corpuscular Volume 92.2 fL (81-99); Mean Platelet Vol. 10.3 fl (6.2-12.0); Monocyte# 0.58 X10^3/uL; Monocyte% 4.5 % (0-10); Neutrophil # 10.95 X10^3/uL (2.7-7.7); Neutrophil % 85.6 % (47-70); Platelet Count 77 K/mm3 (150-450); RBC Distribution Width CV 16.9 % (11.6-14.6); RBC Distribution Width SD 56.9 fl (35.1-43.9); Red Blood Count 3.33 M/mm3 (4.2-5.4); White Blood Count 12.8 K/mm3 (4.4-11.0)
[2017-12-12 17:26] LABS: POSITIVE COUNT NO; POSITIVE DIFFERENTIAL NO; POSITIVE MORPHOLOGY NO
[2017-12-12 17:58] LABS: Anion Gap 7 (5-15); BUN 17 mg/dL (7-18); BUN/Creat Ratio 15.7 RATIO (10-20); Calcium,Total 9.1 mg/dL (8.5-10.1); Chloride 112 mmol/L (98-107); Creatinine, Serum 1.08 mg/dL (0.55-1.02); EST Glomerular Filtration Rate 52 mL/min (>60); Est Glom Filt Rate - Afr Amer 63 mL/min (>60); Estimated Creatinine Clearance 33.92 ml/min; Glucose 80 mg/dL (74-106); Sodium Level 146 mmol/L (136-145)
[2017-12-12 18:01] LABS: Bedside Glucose 92 mg/dL (70-110)
--- NOTE | 2017-12-12 18:35 | NURSING ---
Tele monitor alarmed showing patients heart rate 130 to 135. pt assessment unchanged. Dr Vazquez and Dr Deluna notified via text of patient status,heart rate change and of lab values. awaiting response from Dr Deluna. Dr vazquez aware and gave no new orders.
--- NOTE | 2017-12-12 19:20 | NURSING ---
Spoke with patient son and MD Deluna at this time with dayshift RN Kristan. Son requesting restraints due to patients agitation and aggression. Pt has been pulling out IVS and taking off oxygen. to order and son wants them.
--- NOTE | 2017-12-12 19:25 | NURSING ---
At bedside with MD Orellana and patients son Nahun at this time. discussed with son Hospice for patient due to patients condition. Son has already approved restraints due to agitation and pulling at iv, wrist bands, oxygen, and scratching. Pt is not oriented at this time. Son would like to think about the Hospice over night after discussing with MD Orellana, COLT Rushing, and this RN
[2017-12-12] MEDS: Ceftriaxone 1 GM/50 ML BAG IV (21:04)
[2017-12-12] MEDS: 0.9% NaCl Peripheral Flush Adult/Peds IV (21:04)
[2017-12-13 00:01] LABS: Bedside Glucose 134 mg/dL (70-110)
--- NOTE | 2017-12-13 00:41 | NURSING ---
Suctions patient at this time for moderate thick/sanchez secretions. Will continue to monitor.
[2017-12-13 01:28] VITALS: O2SAT 99
[2017-12-13 01:51] VITALS: BP 121/53; PULSE 118; RESP 18; TEMP 36.8; O2SAT 94
--- NOTE | 2017-12-13 02:10 | NURSING ---
Addendum entered by Ariana Booker 12/13/17 08:08: Suctioned patient at this time for moderate sanchez/thick secretions. Will continue to monitor. Original Note: Suctions patient at this time for moderate sanchez/thick secretions. Will continue to monitor.
[2017-12-13 03:00] VITALS: PULSE 112
[2017-12-13 03:50] VITALS: BP 131/57; PULSE 128; RESP 16; TEMP 37.3; O2SAT 96
--- NOTE | 2017-12-13 04:40 | NURSING ---
Suctioned patient at this time for large - sanchez/thick secretion. Will continue to monitor.
[2017-12-13] MEDS: Heparin Injection (Vial) 5,000 UNIT/ML VIAL 5000 UNIT SC (05:07)
--- NOTE | 2017-12-13 05:40 | NURSING ---
Took patients blood sugar at this time - patient very agitated at this time. Swinging arms - mostly right arm. Will continue to monitor patient.
[2017-12-13 05:46] LABS: Bedside Glucose 80 mg/dL (70-110)
--- NOTE | 2017-12-13 06:00 | NURSING ---
This nurse went into pt. room to suction pt. at this time. Scant amount of thick sanchez sputum obtained. Pt. restless. RN notified.
[2017-12-13 06:39] LABS: Anion Gap 12 (5-15); BUN 18 mg/dL (7-18); BUN/Creat Ratio 14.6 RATIO (10-20); Calcium,Total 8.6 mg/dL (8.5-10.1); Chloride 112 mmol/L (98-107); Creatinine, Serum 1.23 mg/dL (0.55-1.02); EST Glomerular Filtration Rate 44 mL/min (>60); Est Glom Filt Rate - Afr Amer 54 mL/min (>60); Estimated Creatinine Clearance 29.79 ml/min; Glucose 77 mg/dL (74-106); Sodium Level 147 mmol/L (136-145)
--- NOTE | 2017-12-13 07:42 | DS.PCM_ITS ---
Discharge Date and Diagnosis - Problem List Patient Problems: Active and Suspected Problems (Last Reviewed 12/11/17 @ 14:59 by Cathy Vazquez MD) Hypoglycemia (Acute) Encephalopathy (Acute) Date of Admission: 12/11/17 Date of Discharge: 12/13/17 - Primary Discharge Diagnosis Active and Suspected Problems (Last Reviewed 12/11/17 @ 14:59 by Cathy Vazquez MD) Pneumonia Hypoglycemia (Acute) Encephalopathy (Acute) - Secondary Discharge Diagnosis Chronic Problems (Last Reviewed 12/11/17 @ 14:59 by Cathy Vazquez MD) GERD (gastroesophageal reflux disease) (Chronic) History of hypertension (Chronic) History of coronary artery stent placement (Chronic 05/05/11) ADINA to RCA 05/05/2011, [facility] per Dr. Cain Gayle Atherosclerotic heart disease of [place] coronary artery without angina pectoris (Chronic) ADINA to RCA 05/05/2011, [facility] per Dr. Cain Gayle Supraventricular tachycardia (Chronic) Paroxysmal atrial tachycardia (Chronic) Non-rheumatic tricuspid valve insufficiency (Chronic) 2+ per echo 03/30/2014 Secondary pulmonary arterial hypertension (Chronic) RVSP 43 mmhg per echo 03/30/2014 Hyperlipidemia (Chronic) Chronic ulcer of back (Chronic) Hypothyroidism (Chronic) Essential (primary) hypertension (Chronic) Hospital Course and Treatment Operations: None Summary of Care Provided: Discharge Summary/ Note The patient is a 82 year old F with recent diagnosis of Parkinson's disease, hypertension, hypothyroidism who recently had adjustments made to her Sinemet as well as was started on Megace. Patient has been progressively weak at home, lethargic, and brought to the emergency department . Blood sugar was found to be 66, patient was stated to be eating well at home. The emergency department patient was given D50 because of the hypoglycemia. Patient was unresponsive to the ED physician, appeared to respond and open eyes spontaneously at the time went on. Vitals in the ED was 90 7.6F, blood pressure 120/96, heart rate was 99, respiratory was 18, PO2 was 98% on 3.5 L Showed RBC count of 10.2, hemoglobin 10.7, platelet 95, INR 1.1, sodium 139, potassium 4.2, chloride 99, bicarbonate 34, BUN 35, creatinine 1.39 Initially patient was diagnosed of acute encephalopathy likely secondary to medication all hypoglycemia. CT of the brain was negative and ABG was unremarkable patient was admitted to the PCU and was started on IV fluids for fluid resuscitation as patient was noted to have acute kidney injury that was attributed to dehydration.. A TSH was done but it returned unremarkable. Cardiology service was consulted. Per recommendation of neurologist MRI of the brain was done. Her MRI studies showed a chronic right sphenoid sinusitis, worse since prior study; right mastoiditis. In the course of admission patient was noted to failed a bedside swallow evaluation. However patient was lethargic and unresponsive at times as though family agreed that evaluation should be discontinued at that time. Chest x-ray showed new right basilar opacity compatible with pneumonia and patient was started on double IV antibiotics. Patient continued to deteriorate she continued to have tachycardia; lethargy and occasionally with agitated behavior in bed. Patient was initially DNR CCA was made DNR CC. Family was considering hospice. On 12/13/2017 at 641 patient was noted to be persistently on the monitor. On 12/13/2017 at 6:45 AM patient was assessed: Physical examination is as below. Patient did not respond to pain with stretching of her glabella and with sternal rub. Patient pupils were dilated and did not respond to light. Corneal reflex was negative. Patient had no heart sounds. There was no air movement to her lungs. Patient had no pulse. Patient was pronounced on 12/13/2017 at 6:45 AM Cause of is likely secondary to respiratory failure from pneumonia. Her son Mr. Karson Garnica was notified via phone ([phone]) of patient's . Her son said he would come and see her mother. Nursing staff was notified. Time spent in doing discharge was 35 minutes. Patient Problems: Active and Suspected Problems (Last Reviewed 12/11/17 @ 14:59 by Cathy Vazquez MD) Hypoglycemia (Acute) Encephalopathy (Acute) Objective: Patient did not respond to pain with stretching of her glabella and with sternal rub. Patient pupils were dilated and did not respond to light. Corneal reflex was negative. Patient had no heart sounds. There was no air movement to her lungs. Patient had no pulse. Patient was pronounced on 12/13/2017 at 6:45 AM - Physical Exam Vital Signs Temp Pulse Resp BP Pulse Ox 99.1 F 128 H 16 131/57 H 96 12/13/17 03:50 12/13/17 03:50 12/13/17 03:50 12/13/17 03:50 12/13/17 03:50 Oxygen Flow Rate (L/min) 5 Oxygen Delivery Method Nasal Cannula Weight: 52.6 kg Body Mass Index (BMI) 25.9 Finger Stick Blood Glucose 66 Intake and Output for Last 24 Hours 12/12/17 12/12/17 12/13/17 00:59 23:59 23:59 Intake Total 326 / 326 Output Total 300 / 300 Balance Laboratory Tests Past 24 Hrs 12/12/17 12/12/17 12/12/17 13:30 17:12 17:12 WBC 12.8 H RBC 3.33 L Hgb 9.7 L Hct 30.7 L MCV 92.2 MCH 29.1 MCHC 31.6 L RDW 16.9 H RDW Differential 56.9 H Plt Count 77 L MPV 10.3 Immature Gran % (Auto) 0.100 Neut % (Auto) 85.6 H Lymph % (Auto) 9.5 L Bryan % (Auto) 4.5 Eos % (Auto) 0.2 Baso % (Auto) 0.1 Absolute Neuts (auto) 11.0 H Absolute Lymphs (auto) 1.21 Total Counted Not Reportable Sodium 148 H 146 H Potassium 4.2 4.0 Chloride 112 H 112 H Carbon Dioxide 30.0 27.0 Anion Gap 6 7 BUN 19 H 17 Creatinine 1.15 H 1.08 H Estim Creat Clear Calc 31.86 33.92 Est GFR (MDRD) Af Amer 58 L 63 Est GFR (MDRD) Non-Af 48 L 52 L BUN/Creatinine Ratio 16.5 15.7 Glucose 101 80 Calcium 9.3 9.1 B-Natriuretic Peptide 12/12/17 12/13/17 17:12 05:48 WBC RBC Hgb Hct MCV MCH MCHC RDW RDW Differential Plt Count MPV Immature Gran % (Auto) Neut % (Auto) Lymph % (Auto) Bryan % (Auto) Eos % (Auto) Baso % (Auto) Absolute Neuts (auto) Absolute Lymphs (auto) Total Counted Sodium 147 H Potassium 4.0 Chloride 112 H Carbon Dioxide 23.0 Anion Gap 12 BUN 18 Creatinine 1.23 H Estim Creat Clear Calc 29.79 Est GFR (MDRD) Af Amer 54 L Est GFR (MDRD) Non-Af 44 L BUN/Creatinine Ratio 14.6 Glucose 77 Calcium 8.6 B-Natriuretic Peptide 126.0 H POC Glucose 12/13/17 12/12/17 12/12/17 05:40 23:54 17:48 POC Glucose 80 134 H 92 12/12/17 12/12/17 15:01 12:11 POC Glucose 108 86 Home Medications: Medications to take at Discharge Acetaminophen [Pain Relief] 500 mg PO PRN 12/11/17 Albuterol IH (ProAir) [Proair Hfa (SP)Vent Pts] 1 - 2 puff INHALATION Q4H PRN PRN 12/11/17 Benzonatate 100 mg PO PRN PRN 12/11/17 Buspirone HCl 7.5 mg PO BID 12/11/17 Carbidopa/Levodopa 50/200 [Sinemet CR] 1 tablet PO BIDAC 12/11/17 Fluticasone 0.05% [Flonase Nasal [place]] 2 spray NASAL DAILY PRN 12/11/17 Furosemide [Lasix] 20 mg PO DAILY 12/11/17 Gabapentin [Neurontin] 400 mg PO TID 12/11/17 Ipratropium [place] [Atrovent Hfa] 12.9 gm IH PRN PRN 12/11/17 Levothyroxine [Synthroid] 50 mcg PO DAILY 12/11/17 Loperamide HCl [Anti-Diarrheal] 2 mg PO PRN PRN 12/11/17 Ondansetron HCl [Zofran] 4 mg PO Q4H PRN PRN 12/11/17 Pantoprazole Sodium [Protonix] 40 mg PO BID 12/11/17 Pravastatin Sodium [Pravachol] 10 mg PO DAILY 12/11/17 Primary Care Physician: Javed Carbajal DO [Primary Care Provider] - Disposition: Medical Necessity - Tobacco Use Smoking Status: Former smoker Tobacco Use: Non-smoker Meaningful Use Info Meaningful Use Diagnoses (Choose all that apply): None applicable Code Visit Inpatient E&M: 12274 Disch Hosp
--- NOTE | 2017-12-13 07:50 | EXP.PCM_ITS ---
Preliminary Cause of Acute respiratory failure secondary to pneumonia Date of Admission: 12/11/17 Date of : 12/13/17 - Principle Diagnosis Acute respiratory failure secondary to pneumonia Problem List: Active and Suspected Problems (Last Reviewed 12/11/17 @ 14:59 by Cathy Vazquez MD) Hypoglycemia (Acute) Encephalopathy (Acute) Hospital Course The patient is a 82 year old F with recent diagnosis of Parkinson's disease, hypertension, hypothyroidism who recently had adjustments made to her Sinemet as well as was started on Megace. Patient has been progressively weak at home, lethargic, and brought to the emergency department . Blood sugar was found to be 66, patient was stated to be eating well at home. The emergency department patient was given D50 because of the hypoglycemia. Patient was unresponsive to the ED physician, appeared to respond and open eyes spontaneously at the time went on. Vitals in the ED was 90 7.6F, blood pressure 120/96, heart rate was 99, respiratory was 18, PO2 was 98% on 3.5 L Showed RBC count of 10.2, hemoglobin 10.7, platelet 95, INR 1.1, sodium 139, potassium 4.2, chloride 99, bicarbonate 34, BUN 35, creatinine 1.39 Initially patient was diagnosed of acute encephalopathy likely secondary to medication all hypoglycemia. CT of the brain was negative and ABG was unremarkable patient was admitted to the PCU and was started on IV fluids for fluid resuscitation as patient was noted to have acute kidney injury that was attributed to dehydration.. A TSH was done but it returned unremarkable. Cardiology service was consulted. Per recommendation of neurologist MRI of the brain was done. Her MRI studies showed a chronic right sphenoid sinusitis, worse since prior study; right mastoiditis. In the course of admission patient was noted to failed a bedside swallow eval uation. However patient was lethargic and unresponsive at times as though family agreed that evaluation should be discontinued at that time. Chest x-ray showed new right basilar opacity compatible with pneumonia and patient was started on double IV antibiotics. Patient continued to deteriorate she continued to have tachycardia; lethargy and occasionally with agitated behavior in bed. Patient was initially DNR CCA was made DNR CC. Family was considering hospice. On 12/13/2017 at 641 patient was noted to be persistently on the monitor. On 12/13/2017 at 6:45 AM patient was assessed: Physical examination is as below. Patient did not respond to pain with stretching of her glabella and with sternal rub. Patient pupils were dilated and did not respond to light. Corneal reflex was negative. Patient had no heart sounds. There was no air movement to her lungs. Patient had no pulse. Patient was pronounced on 12/13/2017 at 6:45 AM Cause of is likely secondary to respiratory failure from pneumonia. Her son Mr. Karson Garnica was notified via phone ([phone]) of patient's . Her son said he would come and see her mother. Nursing staff was notified. Time spent in doing discharge was 35 minutes. Objective: Patient did not respond to pain with stretching of her glabella and with sternal rub. Patient pupils were dilated and did not respond to light. Corneal reflex was negative. Patient had no heart sounds. There was no air movement to her lungs. Patient had no pulse. Patient was pronounced on 12/13/2017 at 6:45 AM
--- NOTE | 2017-12-13 07:53 | NURSING ---
I had just checked on the patient at 0600- while suctioning the patient with charge nurse Iris Estrada RN. Patient was agitated while suctioned for scant amount of sanchez/thick secretions. Patient head of bed was elevated to 45 degrees. Patient breathing unlabored and does not appear to be in any form of distress and pulse ox was 97 percent on 5LNC and HR was 128 at the 0600. Patient still attempting to pull and swing with right arm at this time. Stepped into director of direct marketing office. Came out of the office and began documenting. Son called at 0627 and informed of her condition really having unchanged from the time he left last night. Patients heart rate at that time was 111. My phone and the telemetry system at nurses station alarmed for a HR at 48 at 0635. Went into patients room and she was unresponsive, respirations of 2, HR of 32. My phone and the tele monitor on the patient alarmed asystole 0637. tipple mechanic Citlaly Sandhu called the hospitalist at this time who arrived at 0643 and pronounced the patient at 0645. Patient family notified at 0651. Son arrived on unit at 0725.
[2017-12-14 07:15] LABS: Bedside Glucose 66 mg/dL (70-110)
== END 2017-12-13 06:45 ==
LOC: ED 13:00 → PCU 13:15
PROVIDERS: Hospitalist; Internal Medicine; Admitting Provider Internal Medicine; Emergency Provider Emergency Medicine; Family Provider Family Medicine; PCP Family Medicine; Visit Provider Student in an Organized Health Care Education/Training Program
DX: J18.9 Pneumonia, unspecified organism (principal); K21.9 Gastro-esophageal reflux disease without esophagitis; E78.5 Hyperlipidemia, unspecified; E03.9 Hypothyroidism, unspecified; I25.10 Atherosclerotic heart disease of native coronary artery without angina pectoris; G20 Parkinson's disease; E16.2 Hypoglycemia, unspecified; G93.41 Metabolic encephalopathy; N17.9 Acute kidney failure, unspecified; I27.21 Secondary pulmonary arterial hypertension; G89.4 Chronic pain syndrome; F41.9 Anxiety disorder, unspecified; I12.9 Hypertensive chronic kidney disease with stage 1 through stage 4 chronic kidney disease, or unspecified chronic kidney disease; N18.3 Chronic kidney disease, stage 3 (moderate); Z79.899 Other long term (current) drug therapy; Z66 Do not resuscitate; Z95.5 Presence of coronary angioplasty implant and graft; Z87.891 Personal history of nicotine dependence; E87.1 Hypo-osmolality and hyponatremia; E86.0 Dehydration; R94.31 Abnormal electrocardiogram [ECG] [EKG]; R06.02 Shortness of breath
CPT/HCPCS: 36415; 36600; 51702; 70450; 70551; 71045; 71046; 80048; 80053; 81001; 82803; 82962; 83605; 83880; 84443; 84484; 85025; 85610; 85730; 87040; 87086; 87641; 93005; 96361; 96365; 96366; 96367; 96372; 96375; 97163; 97167; 97802; 99218; 99285; J7030; J7040; A4216; G0378